=== PATIENT | male | born 1945 | race Caucasian/White ===

== ENCOUNTER 2017-11-11 05:56 | Outpatient (RCR) | payer MEDICARE, BC ==
[~2017-11-11 05:56] MED LIST: ATOR20TA65 PO; BLOO-1318 MC; BLOO-1337 MC; CALC0.5C5 PO; CALC1POW MC; CALC400T65 PO; CHOL200074 PO; CINA90TA2 PO; DEXTROSE 50% 50 ML SYR IVP PRN; DIALYSIS ACETAMINOPHEN 325 MG PO PRN; GLIM1TAB25 PO; LANC-1149 MC; LOPERAMIDE HCL 2 MG CAP PO PRN; PARI5VIA IV; SEVE800T16 PO; [UNRECOGNIZED DRUG - CODE] IJ; [UNRECOGNIZED DRUG - CODE] IV; diphenhydr DIALYSIS 50 MG/ML IVP PRN
[2017-11-11] MEDS: HEPARIN (PORCINE) 1000 UNIT/ML (DIALYSIS) IVP PRN (06:38)
[2017-11-11] MEDS: HEPARIN SOD (PORCINE) LOAD IVP PRN (06:38)
[2017-11-11] MEDS: PARICALCITOL 2 MCG/ML VIAL IVP PRN (08:23)
[2017-11-13] MEDS: HEPARIN (PORCINE) 1000 UNIT/ML (DIALYSIS) IVP PRN (06:33)
[2017-11-13] MEDS: HEPARIN SOD (PORCINE) LOAD IVP PRN (06:33)
[2017-11-13] MEDS: SODIUM FERRIC GLUC 62.5 MG/5ML IVP PRN (07:15)
[2017-11-13] MEDS: PARICALCITOL 2 MCG/ML VIAL IVP PRN (07:15)
[2017-11-15] MEDS: HEPARIN SOD (PORCINE) LOAD IVP PRN (06:34)
[2017-11-15] MEDS: HEPARIN (PORCINE) 1000 UNIT/ML (DIALYSIS) IVP PRN (06:34)
[2017-11-15] MEDS: PARICALCITOL 2 MCG/ML VIAL IVP PRN (07:26)
[2017-11-15] MEDS: DARBEPOETIN ESRD 25 MCG/ML IVP PRN (07:26)
[2017-11-18] MEDS: HEPARIN SOD (PORCINE) LOAD IVP PRN (06:35)
[2017-11-18] MEDS: HEPARIN (PORCINE) 1000 UNIT/ML (DIALYSIS) IVP PRN (06:35)
[2017-11-18] MEDS: PARICALCITOL 2 MCG/ML VIAL IVP PRN (07:29)
[2017-11-20] MEDS: HEPARIN (PORCINE) 1000 UNIT/ML (DIALYSIS) IVP PRN (06:28)
[2017-11-20] MEDS: HEPARIN SOD (PORCINE) LOAD IVP PRN (06:28)
[2017-11-20] MEDS: PARICALCITOL 2 MCG/ML VIAL IVP PRN (07:19)
[2017-11-20] MEDS: SODIUM FERRIC GLUC 62.5 MG/5ML IVP PRN (07:19)
[2017-11-22] MEDS: HEPARIN SOD (PORCINE) LOAD IVP PRN (06:37)
[2017-11-22] MEDS: HEPARIN (PORCINE) 1000 UNIT/ML (DIALYSIS) IVP PRN (06:37)
[2017-11-22] MEDS: DARBEPOETIN ESRD 25 MCG/ML IVP PRN (07:07)
[2017-11-22] MEDS: PARICALCITOL 2 MCG/ML VIAL IVP PRN (07:07)
[2017-11-25] MEDS: HEPARIN (PORCINE) 1000 UNIT/ML (DIALYSIS) IVP PRN (06:34)
[2017-11-25] MEDS: HEPARIN SOD (PORCINE) LOAD IVP PRN (06:35)
[2017-11-25] MEDS: PARICALCITOL 2 MCG/ML VIAL IVP PRN (06:48)
[2017-11-27] MEDS: HEPARIN (PORCINE) 1000 UNIT/ML (DIALYSIS) IVP PRN (06:30)
[2017-11-27] MEDS: HEPARIN SOD (PORCINE) LOAD IVP PRN (06:30)
[2017-11-27] MEDS: PARICALCITOL 2 MCG/ML VIAL IVP PRN (07:19)
[2017-11-27] MEDS: SODIUM FERRIC GLUC 62.5 MG/5ML IVP PRN (07:19)
[2017-11-27 07:54] LABS: PLATELET COUNT, AUTOMATED 174 K/uL (150-450)
[2017-11-29] MEDS: HEPARIN (PORCINE) 1000 UNIT/ML (DIALYSIS) IVP PRN (06:35)
[2017-11-29] MEDS: HEPARIN SOD (PORCINE) LOAD IVP PRN (06:35)
[2017-11-29] MEDS: PARICALCITOL 2 MCG/ML VIAL IVP PRN (07:04)
[2017-11-29] MEDS: DARBEPOETIN ESRD 40MCG/ML IVP PRN (07:04)
[2017-12-02] MEDS: HEPARIN (PORCINE) 1000 UNIT/ML (DIALYSIS) IVP PRN (06:37)
[2017-12-02] MEDS: HEPARIN SOD (PORCINE) LOAD IVP PRN (06:37)
[2017-12-02] MEDS: PARICALCITOL 2 MCG/ML VIAL IVP PRN (07:10)
[2017-12-04] MEDS: HEPARIN (PORCINE) 1000 UNIT/ML (DIALYSIS) IVP PRN (06:36)
[2017-12-04] MEDS: HEPARIN SOD (PORCINE) LOAD IVP PRN (06:37)
[2017-12-04] MEDS: SODIUM FERRIC GLUC 62.5 MG/5ML IVP PRN (07:28)
[2017-12-04] MEDS: PARICALCITOL 2 MCG/ML VIAL IVP PRN (07:28)
[2017-12-06] MEDS: HEPARIN SOD (PORCINE) LOAD IVP PRN (06:25)
[2017-12-06] MEDS: HEPARIN (PORCINE) 1000 UNIT/ML (DIALYSIS) IVP PRN (06:25)
[2017-12-06] MEDS: PARICALCITOL 2 MCG/ML VIAL IVP PRN (07:21)
[2017-12-06] MEDS: DARBEPOETIN ESRD 40MCG/ML IVP PRN (07:22)
[2017-12-06] MEDS ORDERED: [UNRECOGNIZED DRUG - OTHER] IV PRN ×2 (09:30→09:50)
[2017-12-07] MEDS ORDERED: [UNRECOGNIZED DRUG - OTHER] IVP PRN (17:00)
[2017-12-09] MEDS: HEPARIN (PORCINE) 1000 UNIT/ML (DIALYSIS) IVP PRN (06:29)
[2017-12-09] MEDS: HEPARIN SOD (PORCINE) LOAD IVP PRN (06:29)
[2017-12-09] MEDS: PARICALCITOL 2 MCG/ML VIAL IVP PRN (06:44)
[2017-12-09] MEDS: [UNRECOGNIZED DRUG - OTHER] IVP PRN (11:15)
[2017-12-11] MEDS: HEPARIN (PORCINE) 1000 UNIT/ML (DIALYSIS) IVP PRN (06:30)
[2017-12-11] MEDS: HEPARIN SOD (PORCINE) LOAD IVP PRN (06:30)
[2017-12-11] MEDS: PARICALCITOL 2 MCG/ML VIAL IVP PRN (07:25)
[2017-12-11] MEDS: [UNRECOGNIZED DRUG - OTHER] IVP PRN (11:12)
[2017-12-13] MEDS: HEPARIN (PORCINE) 1000 UNIT/ML (DIALYSIS) IVP PRN (06:34)
[2017-12-13] MEDS: PARICALCITOL 2 MCG/ML VIAL IVP PRN (07:06)
[2017-12-13] MEDS: DARBEPOETIN ESRD 40MCG/ML IVP PRN (07:06)
[2017-12-13] MEDS: [UNRECOGNIZED DRUG - OTHER] IVP PRN (11:21)
[2017-12-16] MEDS: HEPARIN (PORCINE) 1000 UNIT/ML (DIALYSIS) IVP PRN (06:29)
[2017-12-16] MEDS: HEPARIN SOD (PORCINE) LOAD IVP PRN (06:30)
[2017-12-16] MEDS: PARICALCITOL 2 MCG/ML VIAL IVP PRN (07:06)
[2017-12-16] MEDS: [UNRECOGNIZED DRUG - OTHER] IVP PRN (11:21)
[2017-12-18] MEDS: HEPARIN (PORCINE) 1000 UNIT/ML (DIALYSIS) IVP PRN (06:36)
[2017-12-18] MEDS: HEPARIN SOD (PORCINE) LOAD IVP PRN (06:36)
[2017-12-18] MEDS: SODIUM FERRIC GLUC 62.5 MG/5ML IVP PRN (07:40)
[2017-12-18] MEDS: PARICALCITOL 2 MCG/ML VIAL IVP PRN (07:40)
[2017-12-18] MEDS: [UNRECOGNIZED DRUG - OTHER] IVP PRN (11:21)
[2017-12-20] MEDS: HEPARIN SOD (PORCINE) LOAD IVP PRN (06:27)
[2017-12-20] MEDS: HEPARIN (PORCINE) 1000 UNIT/ML (DIALYSIS) IVP PRN (06:27)
[2017-12-20] MEDS: PARICALCITOL 2 MCG/ML VIAL IVP PRN (07:04)
[2017-12-20] MEDS: DARBEPOETIN ESRD 25 MCG/ML IVP PRN (07:04)
[2017-12-20] MEDS: [UNRECOGNIZED DRUG - OTHER] IVP PRN (11:15)
[2017-12-23] MEDS: HEPARIN SOD (PORCINE) LOAD IVP PRN (06:27)
[2017-12-23] MEDS: HEPARIN (PORCINE) 1000 UNIT/ML (DIALYSIS) IVP PRN (06:27)
[2017-12-23] MEDS: PARICALCITOL 2 MCG/ML VIAL IVP PRN (07:45)
[2017-12-23] MEDS: [UNRECOGNIZED DRUG - OTHER] IVP PRN (11:16)
[2017-12-25] MEDS: HEPARIN SOD (PORCINE) LOAD IVP PRN (06:39)
[2017-12-25] MEDS: HEPARIN (PORCINE) 1000 UNIT/ML (DIALYSIS) IVP PRN (06:39)
[2017-12-25] MEDS ORDERED: HEPARIN (PORCINE) 1000 UNIT/ML (DIALYSIS) ONE (06:41)
[2017-12-25] MEDS: PARICALCITOL 2 MCG/ML VIAL IVP PRN (07:34)
[2017-12-25] MEDS: [UNRECOGNIZED DRUG - OTHER] IVP PRN (11:25)
[2017-12-27] MEDS: HEPARIN SOD (PORCINE) LOAD IVP PRN (06:19)
[2017-12-27] MEDS: HEPARIN (PORCINE) 1000 UNIT/ML (DIALYSIS) IVP PRN (06:19)
[2017-12-27] MEDS: DARBEPOETIN ESRD 25 MCG/ML IVP PRN (07:30)
[2017-12-27] MEDS: PARICALCITOL 2 MCG/ML VIAL IVP PRN (07:30)
[2017-12-27] MEDS: [UNRECOGNIZED DRUG - OTHER] IVP PRN (11:02)
[2017-12-30] MEDS: HEPARIN (PORCINE) 1000 UNIT/ML (DIALYSIS) IVP PRN (06:31)
[2017-12-30] MEDS: HEPARIN SOD (PORCINE) LOAD IVP PRN (06:31)
[2017-12-30] MEDS: PARICALCITOL 2 MCG/ML VIAL IVP PRN (07:20)
[2017-12-30] MEDS: [UNRECOGNIZED DRUG - OTHER] IVP PRN (11:21)
[2018-01-01] MEDS: HEPARIN (PORCINE) 1000 UNIT/ML (DIALYSIS) IVP PRN (06:46)
[2018-01-01] MEDS: HEPARIN SOD (PORCINE) LOAD IVP PRN (06:47)
[2018-01-01] MEDS: PARICALCITOL 2 MCG/ML VIAL IVP PRN (07:23)
[2018-01-01] MEDS: SODIUM FERRIC GLUC 62.5 MG/5ML IVP PRN (07:23)
[2018-01-01 07:30] LABS: PLATELET COUNT, AUTOMATED 177 K/uL (150-450)
[2018-01-01] MEDS: [UNRECOGNIZED DRUG - OTHER] IVP PRN (11:39)
[2018-01-03] MEDS: HEPARIN SOD (PORCINE) LOAD IVP PRN (06:38)
[2018-01-03] MEDS: HEPARIN (PORCINE) 1000 UNIT/ML (DIALYSIS) IVP PRN (06:40)
[2018-01-03] MEDS: PARICALCITOL 2 MCG/ML VIAL IVP PRN (07:09)
[2018-01-03] MEDS: [UNRECOGNIZED DRUG - OTHER] IVP PRN (11:23)
[2018-01-06] MEDS: HEPARIN (PORCINE) 1000 UNIT/ML (DIALYSIS) IVP PRN (06:29)
[2018-01-06] MEDS: HEPARIN SOD (PORCINE) LOAD IVP PRN (06:29)
[2018-01-06] MEDS: PARICALCITOL 2 MCG/ML VIAL IVP PRN (07:03)
[2018-01-06] MEDS: [UNRECOGNIZED DRUG - OTHER] IVP PRN (11:17)
[2018-01-08] MEDS: HEPARIN SOD (PORCINE) LOAD IVP PRN (06:32)
[2018-01-08] MEDS: HEPARIN (PORCINE) 1000 UNIT/ML (DIALYSIS) IVP PRN (06:33)
[2018-01-08] MEDS: PARICALCITOL 2 MCG/ML VIAL IVP PRN (07:23)
[2018-01-08] MEDS: [UNRECOGNIZED DRUG - OTHER] IVP PRN (11:20)
[2018-01-10] MEDS: HEPARIN (PORCINE) 1000 UNIT/ML (DIALYSIS) IVP PRN (06:34)
[2018-01-10] MEDS: HEPARIN SOD (PORCINE) LOAD IVP PRN (06:34)
[2018-01-10] MEDS: PARICALCITOL 2 MCG/ML VIAL IVP PRN (07:21)
[2018-01-10] MEDS: [UNRECOGNIZED DRUG - OTHER] IVP PRN (11:23)
[2018-01-13] MEDS: HEPARIN SOD (PORCINE) LOAD IVP PRN (06:36)
[2018-01-13] MEDS: HEPARIN (PORCINE) 1000 UNIT/ML (DIALYSIS) IVP PRN (06:37)
[2018-01-13] MEDS: PARICALCITOL 2 MCG/ML VIAL IVP PRN (08:02)
[2018-01-13] MEDS: [UNRECOGNIZED DRUG - OTHER] IVP PRN (11:29)
[2018-01-15] MEDS: HEPARIN SOD (PORCINE) LOAD IVP PRN (06:34)
[2018-01-15] MEDS: HEPARIN (PORCINE) 1000 UNIT/ML (DIALYSIS) IVP PRN (06:34)
[2018-01-15] MEDS: SODIUM FERRIC GLUC 62.5 MG/5ML IVP PRN (07:15)
[2018-01-15] MEDS: PARICALCITOL 2 MCG/ML VIAL IVP PRN (07:15)
[2018-01-15] MEDS: [UNRECOGNIZED DRUG - OTHER] IVP PRN (11:25)
[2018-01-17] MEDS: HEPARIN (PORCINE) 1000 UNIT/ML (DIALYSIS) IVP PRN (06:30)
[2018-01-17] MEDS: HEPARIN SOD (PORCINE) LOAD IVP PRN (06:30)
[2018-01-17] MEDS: PARICALCITOL 2 MCG/ML VIAL IVP PRN (07:25)
[2018-01-17] MEDS: [UNRECOGNIZED DRUG - OTHER] IVP PRN (11:19)
[2018-01-20] MEDS: HEPARIN SOD (PORCINE) LOAD IVP PRN (06:31)
[2018-01-20] MEDS: HEPARIN (PORCINE) 1000 UNIT/ML (DIALYSIS) IVP PRN (06:31)
[2018-01-20] MEDS: PARICALCITOL 2 MCG/ML VIAL IVP PRN (07:00)
[2018-01-20] MEDS: [UNRECOGNIZED DRUG - OTHER] IVP PRN (11:17)
[2018-01-22] MEDS: HEPARIN (PORCINE) 1000 UNIT/ML (DIALYSIS) IVP PRN (06:42)
[2018-01-22] MEDS: HEPARIN SOD (PORCINE) LOAD IVP PRN (06:43)
[2018-01-22] MEDS: PARICALCITOL 2 MCG/ML VIAL IVP PRN (07:21)
[2018-01-22] MEDS: [UNRECOGNIZED DRUG - OTHER] IVP PRN (11:29)
[2018-01-24] MEDS: HEPARIN SOD (PORCINE) LOAD IVP PRN (07:22)
[2018-01-24] MEDS: HEPARIN (PORCINE) 1000 UNIT/ML (DIALYSIS) IVP PRN (07:22)
[2018-01-24] MEDS: PARICALCITOL 2 MCG/ML VIAL IVP PRN (08:03)
[2018-01-24] MEDS: [UNRECOGNIZED DRUG - OTHER] IVP PRN (11:39)
[2018-01-27] MEDS: HEPARIN (PORCINE) 1000 UNIT/ML (DIALYSIS) IVP PRN (06:24)
[2018-01-27] MEDS: HEPARIN SOD (PORCINE) LOAD IVP PRN (06:26)
[2018-01-27] MEDS: PARICALCITOL 2 MCG/ML VIAL IVP PRN (06:54)
[2018-01-27] MEDS: [UNRECOGNIZED DRUG - OTHER] IVP PRN (11:14)
[2018-01-29] MEDS: HEPARIN SOD (PORCINE) LOAD IVP PRN (06:31)
[2018-01-29] MEDS: HEPARIN (PORCINE) 1000 UNIT/ML (DIALYSIS) IVP PRN (06:31)
[2018-01-29 07:26] LABS: PLATELET COUNT, AUTOMATED 174 K/uL (150-450)
[2018-01-29] MEDS: SODIUM FERRIC GLUC 62.5 MG/5ML IVP PRN (07:47)
[2018-01-29] MEDS: PARICALCITOL 2 MCG/ML VIAL IVP PRN (07:47)
[2018-01-29] MEDS: [UNRECOGNIZED DRUG - OTHER] IVP PRN (11:16)
[2018-01-31] MEDS: HEPARIN SOD (PORCINE) LOAD IVP PRN (06:37)
[2018-01-31] MEDS: HEPARIN (PORCINE) 1000 UNIT/ML (DIALYSIS) IVP PRN (06:37)
[2018-01-31] MEDS: DARBEPOETIN ESRD 25 MCG/ML IVP PRN (07:49)
[2018-01-31] MEDS: PARICALCITOL 2 MCG/ML VIAL IVP PRN (07:50)
[2018-01-31] MEDS: [UNRECOGNIZED DRUG - OTHER] IVP PRN (11:26)
[2018-02-03] MEDS: HEPARIN SOD (PORCINE) LOAD IVP PRN (06:37)
[2018-02-03] MEDS: HEPARIN (PORCINE) 1000 UNIT/ML (DIALYSIS) IVP PRN (06:37)
[2018-02-03] MEDS: PARICALCITOL 2 MCG/ML VIAL IVP PRN (07:55)
[2018-02-03] MEDS: [UNRECOGNIZED DRUG - OTHER] IVP PRN (11:39)
[2018-02-05] MEDS: HEPARIN SOD (PORCINE) LOAD IVP PRN (06:32)
[2018-02-05] MEDS: HEPARIN (PORCINE) 1000 UNIT/ML (DIALYSIS) IVP PRN (06:33)
[2018-02-05] MEDS: PARICALCITOL 2 MCG/ML VIAL IVP PRN (07:37)
[2018-02-05] MEDS: [UNRECOGNIZED DRUG - OTHER] IVP PRN (11:18)
[2018-02-07] MEDS: HEPARIN SOD (PORCINE) LOAD IVP PRN (06:39)
[2018-02-07] MEDS: HEPARIN (PORCINE) 1000 UNIT/ML (DIALYSIS) IVP PRN (06:39)
[2018-02-07] MEDS: PARICALCITOL 2 MCG/ML VIAL IVP PRN (07:06)
[2018-02-07] MEDS: [UNRECOGNIZED DRUG - OTHER] IVP PRN (11:21)
[2018-02-10] MEDS: HEPARIN (PORCINE) 1000 UNIT/ML (DIALYSIS) IVP PRN (06:39)
[2018-02-10] MEDS: HEPARIN SOD (PORCINE) LOAD IVP PRN (06:39)
[2018-02-10] MEDS: PARICALCITOL 2 MCG/ML VIAL IVP PRN (07:18)
[2018-02-10] MEDS: [UNRECOGNIZED DRUG - OTHER] IVP PRN (11:29)
[2018-02-12] MEDS: HEPARIN (PORCINE) 1000 UNIT/ML (DIALYSIS) IVP PRN (06:31)
[2018-02-12] MEDS: HEPARIN SOD (PORCINE) LOAD IVP PRN (06:31)
[2018-02-12] MEDS: PARICALCITOL 2 MCG/ML VIAL IVP PRN (07:54)
[2018-02-12] MEDS: SODIUM FERRIC GLUC 62.5 MG/5ML IVP PRN (07:54)
[2018-02-12] MEDS: [UNRECOGNIZED DRUG - OTHER] IVP PRN (11:46)
[2018-02-14] MEDS: HEPARIN (PORCINE) 1000 UNIT/ML (DIALYSIS) IVP PRN (06:34)
[2018-02-14] MEDS: HEPARIN SOD (PORCINE) LOAD IVP PRN (06:34)
[2018-02-14] MEDS: PARICALCITOL 2 MCG/ML VIAL IVP PRN (08:43)
[2018-02-14] MEDS: DARBEPOETIN ESRD 25 MCG/ML IVP PRN (08:43)
[2018-02-14] MEDS: [UNRECOGNIZED DRUG - OTHER] IVP PRN (11:27)
[2018-02-17] MEDS: HEPARIN SOD (PORCINE) LOAD IVP PRN (06:30)
[2018-02-17] MEDS: HEPARIN (PORCINE) 1000 UNIT/ML (DIALYSIS) IVP PRN (06:30)
[2018-02-17] MEDS: PARICALCITOL 2 MCG/ML VIAL IVP PRN (07:24)
[2018-02-17] MEDS: [UNRECOGNIZED DRUG - OTHER] IVP PRN (11:24)
[2018-02-19] MEDS: HEPARIN (PORCINE) 1000 UNIT/ML (DIALYSIS) IVP PRN (06:39)
[2018-02-19] MEDS: HEPARIN SOD (PORCINE) LOAD IVP PRN (06:40)
[2018-02-19] MEDS: PARICALCITOL 2 MCG/ML VIAL IVP PRN (07:37)
[2018-02-19] MEDS: [UNRECOGNIZED DRUG - OTHER] IVP PRN (11:36)
[2018-02-21] MEDS: HEPARIN (PORCINE) 1000 UNIT/ML (DIALYSIS) IVP PRN (06:33)
[2018-02-21] MEDS: HEPARIN SOD (PORCINE) LOAD IVP PRN (06:33)
[2018-02-21] MEDS: PARICALCITOL 2 MCG/ML VIAL IVP PRN (07:35)
[2018-02-21] MEDS: [UNRECOGNIZED DRUG - OTHER] IVP PRN (11:25)
[2018-02-24] MEDS: HEPARIN (PORCINE) 1000 UNIT/ML (DIALYSIS) IVP PRN (06:33)
[2018-02-24] MEDS: HEPARIN SOD (PORCINE) LOAD IVP PRN (06:34)
[2018-02-24] MEDS: PARICALCITOL 2 MCG/ML VIAL IVP PRN (07:37)
[2018-02-24] MEDS: [UNRECOGNIZED DRUG - OTHER] IVP PRN (11:24)
[2018-02-26] MEDS: HEPARIN (PORCINE) 1000 UNIT/ML (DIALYSIS) IVP PRN (06:39)
[2018-02-26] MEDS: HEPARIN SOD (PORCINE) LOAD IVP PRN (06:39)
[2018-02-26] MEDS: PARICALCITOL 2 MCG/ML VIAL IVP PRN (07:26)
[2018-02-26] MEDS: SODIUM FERRIC GLUC 62.5 MG/5ML IVP PRN (07:26)
[2018-02-26 07:28] LABS: PLATELET COUNT, AUTOMATED 167 K/uL (150-450)
[2018-02-26] MEDS: [UNRECOGNIZED DRUG - OTHER] IVP PRN (11:22)
[2018-02-28] MEDS: HEPARIN (PORCINE) 1000 UNIT/ML (DIALYSIS) IVP PRN (06:26)
[2018-02-28] MEDS: HEPARIN SOD (PORCINE) LOAD IVP PRN (06:27)
[2018-02-28] MEDS: DARBEPOETIN ESRD 25 MCG/ML IVP PRN (07:55)
[2018-02-28] MEDS: PARICALCITOL 2 MCG/ML VIAL IVP PRN (07:56)
[2018-02-28] MEDS: [UNRECOGNIZED DRUG - OTHER] IVP PRN (11:04)
[2018-03-03] MEDS: HEPARIN SOD (PORCINE) LOAD IVP PRN (06:27)
[2018-03-03] MEDS: HEPARIN (PORCINE) 1000 UNIT/ML (DIALYSIS) IVP PRN (06:27)
[2018-03-03] MEDS: PARICALCITOL 2 MCG/ML VIAL IVP PRN (07:07)
[2018-03-03] MEDS: [UNRECOGNIZED DRUG - OTHER] IVP PRN (11:25)
[2018-03-05] MEDS: HEPARIN (PORCINE) 1000 UNIT/ML (DIALYSIS) IVP PRN (06:28)
[2018-03-05] MEDS: HEPARIN SOD (PORCINE) LOAD IVP PRN (06:28)
[2018-03-05] MEDS: PARICALCITOL 2 MCG/ML VIAL IVP PRN (08:51)
[2018-03-05] MEDS: [UNRECOGNIZED DRUG - OTHER] IVP PRN (11:14)
[2018-03-07] MEDS: HEPARIN (PORCINE) 1000 UNIT/ML (DIALYSIS) IVP PRN (06:38)
[2018-03-07] MEDS: HEPARIN SOD (PORCINE) LOAD IVP PRN (06:38)
[2018-03-07] MEDS: PARICALCITOL 2 MCG/ML VIAL IVP PRN (07:48)
[2018-03-07] MEDS: [UNRECOGNIZED DRUG - OTHER] IVP PRN (11:10)
[2018-03-10] MEDS: HEPARIN SOD (PORCINE) LOAD IVP PRN (06:33)
[2018-03-10] MEDS: HEPARIN (PORCINE) 1000 UNIT/ML (DIALYSIS) IVP PRN (06:33)
[2018-03-10] MEDS: PARICALCITOL 2 MCG/ML VIAL IVP PRN (07:22)
[2018-03-10] MEDS: [UNRECOGNIZED DRUG - OTHER] IVP PRN (11:05)
[2018-03-12] MEDS: HEPARIN (PORCINE) 1000 UNIT/ML (DIALYSIS) IVP PRN (06:42)
[2018-03-12] MEDS: HEPARIN SOD (PORCINE) LOAD IVP PRN (06:43)
[2018-03-12] MEDS: PARICALCITOL 2 MCG/ML VIAL IVP PRN (07:34)
[2018-03-12] MEDS: [UNRECOGNIZED DRUG - OTHER] IVP PRN (11:10)
[2018-03-14] MEDS: HEPARIN (PORCINE) 1000 UNIT/ML (DIALYSIS) IVP PRN (06:37)
[2018-03-14] MEDS: HEPARIN SOD (PORCINE) LOAD IVP PRN (06:38)
[2018-03-14] MEDS: PARICALCITOL 2 MCG/ML VIAL IVP PRN (07:16)
[2018-03-14] MEDS: DARBEPOETIN ESRD 25 MCG/ML IVP PRN (07:21)
[2018-03-14] MEDS: [UNRECOGNIZED DRUG - OTHER] IVP PRN (11:24)
[2018-03-17] MEDS: HEPARIN (PORCINE) 1000 UNIT/ML (DIALYSIS) IVP PRN (06:33)
[2018-03-17] MEDS: HEPARIN SOD (PORCINE) LOAD IVP PRN (06:33)
[2018-03-17] MEDS: PARICALCITOL 2 MCG/ML VIAL IVP PRN (07:20)
[2018-03-17] MEDS: [UNRECOGNIZED DRUG - OTHER] IVP PRN (11:14)
[2018-03-19] MEDS: HEPARIN SOD (PORCINE) LOAD IVP PRN (06:45)
[2018-03-19] MEDS: HEPARIN (PORCINE) 1000 UNIT/ML (DIALYSIS) IVP PRN (06:45)
[2018-03-19 08:10] LABS: PLATELET COUNT, AUTOMATED 229 K/uL (150-450)
[2018-03-19] MEDS: PARICALCITOL 2 MCG/ML VIAL IVP PRN (08:48)
[2018-03-19] MEDS: [UNRECOGNIZED DRUG - OTHER] IVP PRN (11:41)
[2018-03-21] MEDS: HEPARIN (PORCINE) 1000 UNIT/ML (DIALYSIS) IVP PRN (06:33)
[2018-03-21] MEDS: HEPARIN SOD (PORCINE) LOAD IVP PRN (06:33)
[2018-03-21] MEDS: PARICALCITOL 2 MCG/ML VIAL IVP PRN (07:18)
[2018-03-21] MEDS: [UNRECOGNIZED DRUG - OTHER] IVP PRN (11:03)
[2018-03-24] MEDS: HEPARIN (PORCINE) 1000 UNIT/ML (DIALYSIS) IVP PRN (06:38)
[2018-03-24] MEDS: HEPARIN SOD (PORCINE) LOAD IVP PRN (06:38)
[2018-03-24] MEDS: PARICALCITOL 2 MCG/ML VIAL IVP PRN (07:21)
[2018-03-24] MEDS: [UNRECOGNIZED DRUG - OTHER] IVP PRN (11:17)
[2018-03-26] MEDS: HEPARIN SOD (PORCINE) LOAD IVP PRN (06:37)
[2018-03-26] MEDS: HEPARIN (PORCINE) 1000 UNIT/ML (DIALYSIS) IVP PRN (06:38)
[2018-03-26] MEDS: PARICALCITOL 2 MCG/ML VIAL IVP PRN (07:30)
[2018-03-26] MEDS: [UNRECOGNIZED DRUG - OTHER] IVP PRN (11:09)
[2018-03-28] MEDS: HEPARIN (PORCINE) 1000 UNIT/ML (DIALYSIS) IVP PRN (06:37)
[2018-03-28] MEDS: HEPARIN SOD (PORCINE) LOAD IVP PRN (06:37)
[2018-03-28] MEDS: DARBEPOETIN ESRD 25 MCG/ML IVP PRN (07:39)
[2018-03-28] MEDS: PARICALCITOL 2 MCG/ML VIAL IVP PRN (07:39)
[2018-03-28] MEDS: [UNRECOGNIZED DRUG - OTHER] IVP PRN (11:12)
[2018-03-31] MEDS: HEPARIN (PORCINE) 1000 UNIT/ML (DIALYSIS) IVP PRN (06:36)
[2018-03-31] MEDS: HEPARIN SOD (PORCINE) LOAD IVP PRN (06:36)
[2018-03-31] MEDS: PARICALCITOL 2 MCG/ML VIAL IVP PRN (07:38)
[2018-03-31] MEDS: [UNRECOGNIZED DRUG - OTHER] IVP PRN (11:05)
[2018-04-02] MEDS: HEPARIN (PORCINE) 1000 UNIT/ML (DIALYSIS) IVP PRN (06:37)
[2018-04-02] MEDS: HEPARIN SOD (PORCINE) LOAD IVP PRN (06:38)
[2018-04-02] MEDS: PARICALCITOL 2 MCG/ML VIAL IVP PRN (07:15)
[2018-04-02] MEDS: [UNRECOGNIZED DRUG - OTHER] IVP PRN (11:04)
[2018-04-04] MEDS: HEPARIN (PORCINE) 1000 UNIT/ML (DIALYSIS) IVP PRN (06:29)
[2018-04-04] MEDS: HEPARIN SOD (PORCINE) LOAD IVP PRN (06:29)
[2018-04-04] MEDS: PARICALCITOL 2 MCG/ML VIAL IVP PRN (07:18)
[2018-04-04] MEDS: [UNRECOGNIZED DRUG - OTHER] IVP PRN ×2 (11:08→11:15)
[2018-04-07] MEDS: HEPARIN SOD (PORCINE) LOAD IVP PRN (06:45)
[2018-04-07] MEDS: HEPARIN (PORCINE) 1000 UNIT/ML (DIALYSIS) IVP PRN (06:46)
[2018-04-07] MEDS: PARICALCITOL 2 MCG/ML VIAL IVP PRN (07:29)
[2018-04-07] MEDS: [UNRECOGNIZED DRUG - OTHER] IVP PRN (11:34)
[2018-04-09] MEDS: HEPARIN (PORCINE) 1000 UNIT/ML (DIALYSIS) IVP PRN (06:37)
[2018-04-09] MEDS: HEPARIN SOD (PORCINE) LOAD IVP PRN (06:38)
[2018-04-09] MEDS: PARICALCITOL 2 MCG/ML VIAL IVP PRN (07:15)
[2018-04-09] MEDS: [UNRECOGNIZED DRUG - OTHER] IVP PRN (11:18)
[2018-04-11] MEDS: HEPARIN SOD (PORCINE) LOAD IVP PRN (06:32)
[2018-04-11] MEDS: HEPARIN (PORCINE) 1000 UNIT/ML (DIALYSIS) IVP PRN (06:32)
[2018-04-11] MEDS: PARICALCITOL 2 MCG/ML VIAL IVP PRN (07:02)
[2018-04-11] MEDS: DARBEPOETIN ESRD 25 MCG/ML IVP PRN (07:03)
[2018-04-11] MEDS: [UNRECOGNIZED DRUG - OTHER] IVP PRN (11:30)
[2018-04-14] MEDS: HEPARIN (PORCINE) 1000 UNIT/ML (DIALYSIS) IVP PRN (06:39)
[2018-04-14] MEDS: HEPARIN SOD (PORCINE) LOAD IVP PRN (06:39)
[2018-04-14] MEDS: PARICALCITOL 2 MCG/ML VIAL IVP PRN (07:14)
[2018-04-14] MEDS: [UNRECOGNIZED DRUG - OTHER] IVP PRN (11:14)
[2018-04-16] MEDS: HEPARIN (PORCINE) 1000 UNIT/ML (DIALYSIS) IVP PRN (06:30)
[2018-04-16] MEDS: HEPARIN SOD (PORCINE) LOAD IVP PRN (06:30)
[2018-04-16] MEDS: PARICALCITOL 2 MCG/ML VIAL IVP PRN (07:24)
[2018-04-16] MEDS: [UNRECOGNIZED DRUG - OTHER] IVP PRN (11:05)
[2018-04-18] MEDS: HEPARIN (PORCINE) 1000 UNIT/ML (DIALYSIS) IVP PRN (06:35)
[2018-04-18] MEDS: HEPARIN SOD (PORCINE) LOAD IVP PRN (06:35)
[2018-04-18] MEDS: PARICALCITOL 2 MCG/ML VIAL IVP PRN (07:12)
[2018-04-18] MEDS: [UNRECOGNIZED DRUG - OTHER] IVP PRN (11:12)
[2018-04-21] MEDS: HEPARIN (PORCINE) 1000 UNIT/ML (DIALYSIS) IVP PRN (06:31)
[2018-04-21] MEDS: HEPARIN SOD (PORCINE) LOAD IVP PRN (06:31)
[2018-04-21] MEDS: PARICALCITOL 2 MCG/ML VIAL IVP PRN (06:47)
[2018-04-21] MEDS: [UNRECOGNIZED DRUG - OTHER] IVP PRN (11:06)
[2018-04-23] MEDS: HEPARIN (PORCINE) 1000 UNIT/ML (DIALYSIS) IVP PRN (06:39)
[2018-04-23] MEDS: HEPARIN SOD (PORCINE) LOAD IVP PRN (06:40)
[2018-04-23] MEDS: PARICALCITOL 2 MCG/ML VIAL IVP PRN (07:32)
[2018-04-23 07:42] LABS: PLATELET COUNT, AUTOMATED 160 K/uL (150-450)
[2018-04-23] MEDS: [UNRECOGNIZED DRUG - OTHER] IVP PRN (11:19)
[2018-04-25] MEDS: HEPARIN SOD (PORCINE) LOAD IVP PRN (07:04)
[2018-04-25] MEDS: HEPARIN (PORCINE) 1000 UNIT/ML (DIALYSIS) IVP PRN (07:05)
[2018-04-25] MEDS: PARICALCITOL 2 MCG/ML VIAL IVP PRN (07:18)
[2018-04-25] MEDS: DARBEPOETIN ESRD 25 MCG/ML IVP PRN (07:18)
[2018-04-25] MEDS: [UNRECOGNIZED DRUG - OTHER] IVP PRN (11:06)
[2018-04-28] MEDS: HEPARIN SOD (PORCINE) LOAD IVP PRN (06:34)
[2018-04-28] MEDS: HEPARIN (PORCINE) 1000 UNIT/ML (DIALYSIS) IVP PRN (06:34)
[2018-04-28] MEDS: PARICALCITOL 2 MCG/ML VIAL IVP PRN (06:43)
[2018-04-28] MEDS: [UNRECOGNIZED DRUG - OTHER] IVP PRN (12:37)
[2018-04-30] MEDS: HEPARIN (PORCINE) 1000 UNIT/ML (DIALYSIS) IVP PRN (06:29)
[2018-04-30] MEDS: HEPARIN SOD (PORCINE) LOAD IVP PRN (06:29)
[2018-04-30] MEDS: PARICALCITOL 2 MCG/ML VIAL IVP PRN (08:01)
[2018-04-30] MEDS: [UNRECOGNIZED DRUG - OTHER] IVP PRN (12:23)
[2018-05-02] MEDS: HEPARIN SOD (PORCINE) LOAD IVP PRN (06:32)
[2018-05-02] MEDS: HEPARIN (PORCINE) 1000 UNIT/ML (DIALYSIS) IVP PRN (06:32)
[2018-05-02] MEDS: PARICALCITOL 2 MCG/ML VIAL IVP PRN (07:56)
[2018-05-02] MEDS: [UNRECOGNIZED DRUG - OTHER] IVP PRN (11:03)
[2018-05-05] MEDS: HEPARIN (PORCINE) 1000 UNIT/ML (DIALYSIS) IVP PRN (06:29)
[2018-05-05] MEDS: HEPARIN SOD (PORCINE) LOAD IVP PRN (06:30)
[2018-05-05] MEDS: PARICALCITOL 2 MCG/ML VIAL IVP PRN (07:37)
[2018-05-05] MEDS: [UNRECOGNIZED DRUG - OTHER] IVP PRN (11:03)
[2018-05-07] MEDS: HEPARIN (PORCINE) 1000 UNIT/ML (DIALYSIS) IVP PRN (06:33)
[2018-05-07] MEDS: HEPARIN SOD (PORCINE) LOAD IVP PRN (06:33)
[2018-05-07] MEDS: PARICALCITOL 2 MCG/ML VIAL IVP PRN (07:34)
[2018-05-07] MEDS: [UNRECOGNIZED DRUG - OTHER] IVP PRN (11:02)
[2018-05-09] MEDS: HEPARIN (PORCINE) 1000 UNIT/ML (DIALYSIS) IVP PRN (06:35)
[2018-05-09] MEDS: HEPARIN SOD (PORCINE) LOAD IVP PRN (06:35)
[2018-05-09] MEDS: DARBEPOETIN ESRD 25 MCG/ML IVP PRN (07:18)
[2018-05-09] MEDS: PARICALCITOL 2 MCG/ML VIAL IVP PRN (07:18)
[2018-05-09] MEDS: [UNRECOGNIZED DRUG - OTHER] IVP PRN (11:05)
[2018-05-12] MEDS: HEPARIN (PORCINE) 1000 UNIT/ML (DIALYSIS) IVP PRN (06:36)
[2018-05-12] MEDS: HEPARIN SOD (PORCINE) LOAD IVP PRN (06:36)
[2018-05-12] MEDS: PARICALCITOL 2 MCG/ML VIAL IVP PRN (08:19)
[2018-05-12] MEDS: [UNRECOGNIZED DRUG - OTHER] IVP PRN (11:10)
[2018-05-14] MEDS: HEPARIN (PORCINE) 1000 UNIT/ML (DIALYSIS) IVP PRN (06:35)
[2018-05-14] MEDS: HEPARIN SOD (PORCINE) LOAD IVP PRN (06:35)
[2018-05-14] MEDS: PARICALCITOL 2 MCG/ML VIAL IVP PRN (07:33)
[2018-05-14] MEDS: [UNRECOGNIZED DRUG - OTHER] IVP PRN (11:09)
[2018-05-16] MEDS: HEPARIN SOD (PORCINE) LOAD IVP PRN (06:31)
[2018-05-16] MEDS: HEPARIN (PORCINE) 1000 UNIT/ML (DIALYSIS) IVP PRN (06:31)
[2018-05-16] MEDS: PARICALCITOL 2 MCG/ML VIAL IVP PRN (09:07)
[2018-05-16] MEDS: [UNRECOGNIZED DRUG - OTHER] IVP PRN (11:09)
[2018-05-19] MEDS: HEPARIN SOD (PORCINE) LOAD IVP PRN (06:31)
[2018-05-19] MEDS: HEPARIN (PORCINE) 1000 UNIT/ML (DIALYSIS) IVP PRN (06:31)
[2018-05-19] MEDS: PARICALCITOL 2 MCG/ML VIAL IVP PRN (08:53)
[2018-05-19] MEDS: [UNRECOGNIZED DRUG - OTHER] IVP PRN (11:01)
[2018-05-21] MEDS: HEPARIN SOD (PORCINE) LOAD IVP PRN (06:39)
[2018-05-21] MEDS: HEPARIN (PORCINE) 1000 UNIT/ML (DIALYSIS) IVP PRN (06:39)
[2018-05-21] MEDS: PARICALCITOL 2 MCG/ML VIAL IVP PRN (07:48)
[2018-05-21] MEDS: [UNRECOGNIZED DRUG - OTHER] IVP PRN (11:06)
[2018-05-23] MEDS: HEPARIN (PORCINE) 1000 UNIT/ML (DIALYSIS) IVP PRN (06:39)
[2018-05-23] MEDS: HEPARIN SOD (PORCINE) LOAD IVP PRN (06:39)
[2018-05-23] MEDS: PARICALCITOL 2 MCG/ML VIAL IVP PRN (07:42)
[2018-05-23] MEDS: DARBEPOETIN ESRD 25 MCG/ML IVP PRN (07:42)
[2018-05-23] MEDS: [UNRECOGNIZED DRUG - OTHER] IVP PRN (11:17)
[2018-05-26] MEDS: HEPARIN (PORCINE) 1000 UNIT/ML (DIALYSIS) IVP PRN (06:19)
[2018-05-26] MEDS: HEPARIN SOD (PORCINE) LOAD IVP PRN (06:19)
[2018-05-26] MEDS: PARICALCITOL 2 MCG/ML VIAL IVP PRN (07:58)
[2018-05-26] MEDS: [UNRECOGNIZED DRUG - OTHER] IVP PRN (10:50)
[2018-05-28] MEDS: HEPARIN SOD (PORCINE) LOAD IVP PRN (06:37)
[2018-05-28] MEDS: HEPARIN (PORCINE) 1000 UNIT/ML (DIALYSIS) IVP PRN (06:37)
[2018-05-28 07:32] LABS: PLATELET COUNT, AUTOMATED 196 K/uL (150-450)
[2018-05-28] MEDS: PARICALCITOL 2 MCG/ML VIAL IVP PRN (07:42)
[2018-05-28] MEDS: [UNRECOGNIZED DRUG - OTHER] IVP PRN (11:11)
[2018-05-30] MEDS: HEPARIN SOD (PORCINE) LOAD IVP PRN (06:33)
[2018-05-30] MEDS: HEPARIN (PORCINE) 1000 UNIT/ML (DIALYSIS) IVP PRN (06:33)
[2018-05-30] MEDS: PARICALCITOL 2 MCG/ML VIAL IVP PRN (07:26)
[2018-05-30] MEDS: [UNRECOGNIZED DRUG - OTHER] IVP PRN (11:07)
[2018-06-02] MEDS: HEPARIN (PORCINE) 1000 UNIT/ML (DIALYSIS) IVP PRN (06:47)
[2018-06-02] MEDS: HEPARIN SOD (PORCINE) LOAD IVP PRN (06:48)
[2018-06-02] MEDS: PARICALCITOL 2 MCG/ML VIAL IVP PRN (07:41)
[2018-06-02] MEDS: [UNRECOGNIZED DRUG - OTHER] IVP PRN (11:17)
[2018-06-04] MEDS: HEPARIN (PORCINE) 1000 UNIT/ML (DIALYSIS) IVP PRN (06:31)
[2018-06-04] MEDS: HEPARIN SOD (PORCINE) LOAD IVP PRN (06:31)
[2018-06-04] MEDS: PARICALCITOL 2 MCG/ML VIAL IVP PRN (07:03)
[2018-06-04] MEDS: [UNRECOGNIZED DRUG - OTHER] IVP PRN (11:02)
[2018-06-06] MEDS: HEPARIN SOD (PORCINE) LOAD IVP PRN (06:30)
[2018-06-06] MEDS: HEPARIN (PORCINE) 1000 UNIT/ML (DIALYSIS) IVP PRN (06:30)
[2018-06-06] MEDS: DARBEPOETIN ESRD 25 MCG/ML IVP PRN (07:20)
[2018-06-06] MEDS: PARICALCITOL 2 MCG/ML VIAL IVP PRN (07:20)
[2018-06-06] MEDS: [UNRECOGNIZED DRUG - OTHER] IVP PRN (11:02)
[2018-06-09] MEDS: HEPARIN (PORCINE) 1000 UNIT/ML (DIALYSIS) IVP PRN (06:38)
[2018-06-09] MEDS: HEPARIN SOD (PORCINE) LOAD IVP PRN (06:38)
[2018-06-09] MEDS: PARICALCITOL 2 MCG/ML VIAL IVP PRN (08:11)
[2018-06-09] MEDS: [UNRECOGNIZED DRUG - OTHER] IVP PRN (11:10)
[2018-06-11] MEDS: HEPARIN SOD (PORCINE) LOAD IVP PRN (06:41)
[2018-06-11] MEDS: HEPARIN (PORCINE) 1000 UNIT/ML (DIALYSIS) IVP PRN (06:41)
[2018-06-11] MEDS: PARICALCITOL 2 MCG/ML VIAL IVP PRN (07:19)
[2018-06-11] MEDS: [UNRECOGNIZED DRUG - OTHER] IVP PRN (11:04)
[2018-06-13] MEDS: HEPARIN (PORCINE) 1000 UNIT/ML (DIALYSIS) IVP PRN (06:35)
[2018-06-13] MEDS: HEPARIN SOD (PORCINE) LOAD IVP PRN (06:36)
[2018-06-13] MEDS: PARICALCITOL 2 MCG/ML VIAL IVP PRN (07:02)
[2018-06-13] MEDS: [UNRECOGNIZED DRUG - OTHER] IVP PRN (11:01)
[2018-06-16] MEDS: HEPARIN SOD (PORCINE) LOAD IVP PRN (06:33)
[2018-06-16] MEDS: HEPARIN (PORCINE) 1000 UNIT/ML (DIALYSIS) IVP PRN (06:33)
[2018-06-16] MEDS: PARICALCITOL 2 MCG/ML VIAL IVP PRN (07:32)
[2018-06-16] MEDS: [UNRECOGNIZED DRUG - OTHER] IVP PRN (10:56)
[2018-06-18] MEDS: HEPARIN (PORCINE) 1000 UNIT/ML (DIALYSIS) IVP PRN (06:38)
[2018-06-18] MEDS: HEPARIN SOD (PORCINE) LOAD IVP PRN (06:39)
[2018-06-18 07:32] LABS: PLATELET COUNT, AUTOMATED 191 K/uL (150-450)
[2018-06-18] MEDS: PARICALCITOL 2 MCG/ML VIAL IVP PRN (07:35)
[2018-06-18] MEDS: [UNRECOGNIZED DRUG - OTHER] IVP PRN (11:15)
[2018-06-20] MEDS: HEPARIN (PORCINE) 1000 UNIT/ML (DIALYSIS) IVP PRN (06:30)
[2018-06-20] MEDS: HEPARIN SOD (PORCINE) LOAD IVP PRN (06:30)
[2018-06-20] MEDS: DARBEPOETIN ESRD 25 MCG/ML IVP PRN (07:18)
[2018-06-20] MEDS: PARICALCITOL 2 MCG/ML VIAL IVP PRN (07:18)
[2018-06-20] MEDS: [UNRECOGNIZED DRUG - OTHER] IVP PRN (11:05)
[2018-06-23] MEDS: HEPARIN (PORCINE) 1000 UNIT/ML (DIALYSIS) IVP PRN (06:31)
[2018-06-23] MEDS: HEPARIN SOD (PORCINE) LOAD IVP PRN (06:32)
[2018-06-23] MEDS: PARICALCITOL 2 MCG/ML VIAL IVP PRN (07:38)
[2018-06-23] MEDS: [UNRECOGNIZED DRUG - OTHER] IVP PRN (11:00)
[2018-06-25] MEDS: HEPARIN (PORCINE) 1000 UNIT/ML (DIALYSIS) IVP PRN (06:36)
[2018-06-25] MEDS: HEPARIN SOD (PORCINE) LOAD IVP PRN (06:36)
[2018-06-25] MEDS: PARICALCITOL 2 MCG/ML VIAL IVP PRN (07:15)
[2018-06-25] MEDS: [UNRECOGNIZED DRUG - OTHER] IVP PRN (11:05)
[2018-06-27] MEDS: HEPARIN (PORCINE) 1000 UNIT/ML (DIALYSIS) IVP PRN (06:30)
[2018-06-27] MEDS: HEPARIN SOD (PORCINE) LOAD IVP PRN (06:31)
[2018-06-27] MEDS: PARICALCITOL 2 MCG/ML VIAL IVP PRN (07:16)
[2018-06-27] MEDS: DARBEPOETIN ESRD 25 MCG/ML IVP PRN (07:16)
[2018-06-27] MEDS: [UNRECOGNIZED DRUG - OTHER] IVP PRN (11:05)
[2018-06-30] MEDS: HEPARIN SOD (PORCINE) LOAD IVP PRN (06:34)
[2018-06-30] MEDS: HEPARIN (PORCINE) 1000 UNIT/ML (DIALYSIS) IVP PRN (06:34)
[2018-06-30] MEDS: PARICALCITOL 2 MCG/ML VIAL IVP PRN (07:35)
[2018-06-30] MEDS: [UNRECOGNIZED DRUG - OTHER] IVP PRN (11:00)
[2018-07-02] MEDS: HEPARIN (PORCINE) 1000 UNIT/ML (DIALYSIS) IVP PRN (06:33)
[2018-07-02] MEDS: HEPARIN SOD (PORCINE) LOAD IVP PRN (06:33)
[2018-07-02] MEDS: PARICALCITOL 2 MCG/ML VIAL IVP PRN (07:35)
[2018-07-02] MEDS: [UNRECOGNIZED DRUG - OTHER] IVP PRN (11:04)
[2018-07-04] MEDS: HEPARIN SOD (PORCINE) LOAD IVP PRN (06:26)
[2018-07-04] MEDS: HEPARIN (PORCINE) 1000 UNIT/ML (DIALYSIS) IVP PRN (06:26)
[2018-07-04] MEDS: DARBEPOETIN ESRD 25 MCG/ML IVP PRN (07:16)
[2018-07-04] MEDS: PARICALCITOL 2 MCG/ML VIAL IVP PRN (07:17)
[2018-07-04] MEDS: [UNRECOGNIZED DRUG - OTHER] IVP PRN (10:58)
[2018-07-07] MEDS: HEPARIN SOD (PORCINE) LOAD IVP PRN (06:25)
[2018-07-07] MEDS: HEPARIN (PORCINE) 1000 UNIT/ML (DIALYSIS) IVP PRN (06:25)
[2018-07-07] MEDS: PARICALCITOL 2 MCG/ML VIAL IVP PRN (06:45)
[2018-07-07] MEDS: [UNRECOGNIZED DRUG - OTHER] IVP PRN (10:59)
[2018-07-09] MEDS: HEPARIN (PORCINE) 1000 UNIT/ML (DIALYSIS) IVP PRN (06:35)
[2018-07-09] MEDS: HEPARIN SOD (PORCINE) LOAD IVP PRN (06:36)
[2018-07-09] MEDS: PARICALCITOL 2 MCG/ML VIAL IVP PRN (07:10)
[2018-07-09] MEDS: [UNRECOGNIZED DRUG - OTHER] IVP PRN (11:02)
[2018-07-11] MEDS: HEPARIN (PORCINE) 1000 UNIT/ML (DIALYSIS) IVP PRN (06:34)
[2018-07-11] MEDS: HEPARIN SOD (PORCINE) LOAD IVP PRN (06:35)
[2018-07-11] MEDS: PARICALCITOL 2 MCG/ML VIAL IVP PRN (07:28)
[2018-07-11] MEDS: DARBEPOETIN ESRD 25 MCG/ML IVP PRN (07:28)
[2018-07-11] MEDS: [UNRECOGNIZED DRUG - OTHER] IVP PRN (10:57)
[2018-07-14] MEDS: HEPARIN SOD (PORCINE) LOAD IVP PRN (06:31)
[2018-07-14] MEDS: HEPARIN (PORCINE) 1000 UNIT/ML (DIALYSIS) IVP PRN (06:31)
[2018-07-14] MEDS: PARICALCITOL 2 MCG/ML VIAL IVP PRN (07:13)
[2018-07-14] MEDS: [UNRECOGNIZED DRUG - OTHER] IVP PRN (11:01)
[2018-07-16] MEDS: HEPARIN SOD (PORCINE) LOAD IVP PRN (06:26)
[2018-07-16] MEDS: HEPARIN (PORCINE) 1000 UNIT/ML (DIALYSIS) IVP PRN (06:26)
[2018-07-16] MEDS: PARICALCITOL 2 MCG/ML VIAL IVP PRN (06:46)
[2018-07-16] MEDS: [UNRECOGNIZED DRUG - OTHER] IVP PRN (10:50)
[2018-07-18] MEDS: HEPARIN SOD (PORCINE) LOAD IVP PRN (06:20)
[2018-07-18] MEDS: HEPARIN (PORCINE) 1000 UNIT/ML (DIALYSIS) IVP PRN (06:20)
[2018-07-18] MEDS: PARICALCITOL 2 MCG/ML VIAL IVP PRN (07:22)
[2018-07-18] MEDS: DARBEPOETIN ESRD 25 MCG/ML IVP PRN (07:22)
[2018-07-18] MEDS: [UNRECOGNIZED DRUG - OTHER] IVP PRN (10:56)
[2018-07-21] MEDS: HEPARIN SOD (PORCINE) LOAD IVP PRN (06:31)
[2018-07-21] MEDS: HEPARIN (PORCINE) 1000 UNIT/ML (DIALYSIS) IVP PRN (06:31)
[2018-07-21] MEDS: PARICALCITOL 2 MCG/ML VIAL IVP PRN (07:12)
[2018-07-21] MEDS: [UNRECOGNIZED DRUG - OTHER] IVP PRN (11:03)
[2018-07-23] MEDS: HEPARIN SOD (PORCINE) LOAD IVP PRN (06:33)
[2018-07-23] MEDS: HEPARIN (PORCINE) 1000 UNIT/ML (DIALYSIS) IVP PRN (06:34)
[2018-07-23] MEDS: PARICALCITOL 2 MCG/ML VIAL IVP PRN (07:36)
[2018-07-23] MEDS: [UNRECOGNIZED DRUG - OTHER] IVP PRN (11:09)
[2018-07-25] MEDS: HEPARIN (PORCINE) 1000 UNIT/ML (DIALYSIS) IVP PRN (06:22)
[2018-07-25] MEDS: HEPARIN SOD (PORCINE) LOAD IVP PRN (06:23)
[2018-07-25] MEDS: PARICALCITOL 2 MCG/ML VIAL IVP PRN (07:32)
[2018-07-25] MEDS: DARBEPOETIN ESRD 25 MCG/ML IVP PRN (07:33)
[2018-07-25] MEDS: [UNRECOGNIZED DRUG - OTHER] IVP PRN (10:52)
[2018-07-28] MEDS: HEPARIN SOD (PORCINE) LOAD IVP PRN (06:23)
[2018-07-28] MEDS: HEPARIN (PORCINE) 1000 UNIT/ML (DIALYSIS) IVP PRN (06:23)
[2018-07-28] MEDS: PARICALCITOL 2 MCG/ML VIAL IVP PRN (06:57)
[2018-07-28] MEDS: [UNRECOGNIZED DRUG - OTHER] IVP PRN (10:49)
[2018-07-30] MEDS: HEPARIN (PORCINE) 1000 UNIT/ML (DIALYSIS) IVP PRN (06:22)
[2018-07-30] MEDS: HEPARIN SOD (PORCINE) LOAD IVP PRN (06:23)
[2018-07-30] MEDS: PARICALCITOL 2 MCG/ML VIAL IVP PRN (06:55)
[2018-07-30 07:44] LABS: PLATELET COUNT, AUTOMATED 195 K/uL (150-450)
[2018-07-30] MEDS: [UNRECOGNIZED DRUG - OTHER] IVP PRN (10:58)
[2018-08-01] MEDS: HEPARIN SOD (PORCINE) LOAD IVP PRN (06:28)
[2018-08-01] MEDS: HEPARIN (PORCINE) 1000 UNIT/ML (DIALYSIS) IVP PRN (06:29)
[2018-08-01] MEDS: PARICALCITOL 2 MCG/ML VIAL IVP PRN (07:27)
[2018-08-01] MEDS: [UNRECOGNIZED DRUG - OTHER] IVP PRN (10:54)
[2018-08-04] MEDS: HEPARIN SOD (PORCINE) LOAD IVP PRN (06:28)
[2018-08-04] MEDS: HEPARIN (PORCINE) 1000 UNIT/ML (DIALYSIS) IVP PRN (06:28)
[2018-08-04] MEDS: PARICALCITOL 2 MCG/ML VIAL IVP PRN (07:17)
[2018-08-04] MEDS: [UNRECOGNIZED DRUG - OTHER] IVP PRN (10:55)
[2018-08-06] MEDS: HEPARIN (PORCINE) 1000 UNIT/ML (DIALYSIS) IVP PRN (06:26)
[2018-08-06] MEDS: HEPARIN SOD (PORCINE) LOAD IVP PRN (06:27)
[2018-08-06] MEDS: PARICALCITOL 2 MCG/ML VIAL IVP PRN (07:32)
[2018-08-06] MEDS ORDERED: INFLUENZA VIRUS VAC 0.5ML SYR IM ONLY ONE (11:00)
[2018-08-06] MEDS: [UNRECOGNIZED DRUG - OTHER] IVP PRN (11:04)
[2018-08-08] MEDS: HEPARIN (PORCINE) 1000 UNIT/ML (DIALYSIS) IVP PRN (06:38)
[2018-08-08] MEDS: HEPARIN SOD (PORCINE) LOAD IVP PRN (06:38)
[2018-08-08] MEDS: PARICALCITOL 2 MCG/ML VIAL IVP PRN (07:40)
[2018-08-08] MEDS ORDERED: DARBEPOETIN ESRD 40MCG/ML IVP PRN (10:50)
[2018-08-08] MEDS: [UNRECOGNIZED DRUG - OTHER] IVP PRN (11:09)
[2018-08-11] MEDS: HEPARIN SOD (PORCINE) LOAD IVP PRN (06:32)
[2018-08-11] MEDS: HEPARIN (PORCINE) 1000 UNIT/ML (DIALYSIS) IVP PRN (06:32)
[2018-08-11] MEDS: PARICALCITOL 2 MCG/ML VIAL IVP PRN (08:27)
[2018-08-11] MEDS: [UNRECOGNIZED DRUG - OTHER] IVP PRN (11:07)
[2018-08-13] MEDS: HEPARIN SOD (PORCINE) LOAD IVP PRN (06:29)
[2018-08-13] MEDS: HEPARIN (PORCINE) 1000 UNIT/ML (DIALYSIS) IVP PRN (06:29)
[2018-08-13] MEDS: PARICALCITOL 2 MCG/ML VIAL IVP PRN (08:21)
[2018-08-13] MEDS: [UNRECOGNIZED DRUG - OTHER] IVP PRN (11:11)
[2018-08-15] MEDS: HEPARIN (PORCINE) 1000 UNIT/ML (DIALYSIS) IVP PRN (06:33)
[2018-08-15] MEDS: HEPARIN SOD (PORCINE) LOAD IVP PRN (06:33)
[2018-08-15] MEDS: PARICALCITOL 2 MCG/ML VIAL IVP PRN (07:17)
[2018-08-15] MEDS: [UNRECOGNIZED DRUG - OTHER] IVP PRN (11:07)
[2018-08-18] MEDS: HEPARIN SOD (PORCINE) LOAD IVP PRN (06:31)
[2018-08-18] MEDS: HEPARIN (PORCINE) 1000 UNIT/ML (DIALYSIS) IVP PRN (06:32)
[2018-08-18] MEDS: PARICALCITOL 2 MCG/ML VIAL IVP PRN (07:35)
[2018-08-18] MEDS: [UNRECOGNIZED DRUG - OTHER] IVP PRN (10:53)
[2018-08-20] MEDS: HEPARIN (PORCINE) 1000 UNIT/ML (DIALYSIS) IVP PRN (06:35)
[2018-08-20] MEDS: HEPARIN SOD (PORCINE) LOAD IVP PRN (06:35)
[2018-08-20] MEDS: PARICALCITOL 2 MCG/ML VIAL IVP PRN (08:21)
[2018-08-20] MEDS: [UNRECOGNIZED DRUG - OTHER] IVP PRN (11:06)
[2018-08-22] MEDS: HEPARIN SOD (PORCINE) LOAD IVP PRN (06:26)
[2018-08-22] MEDS: HEPARIN (PORCINE) 1000 UNIT/ML (DIALYSIS) IVP PRN (06:26)
[2018-08-22] MEDS: DARBEPOETIN ESRD 25 MCG/ML IVP PRN (07:26)
[2018-08-22] MEDS: PARICALCITOL 2 MCG/ML VIAL IVP PRN (07:27)
[2018-08-22] MEDS: [UNRECOGNIZED DRUG - OTHER] IVP PRN (10:58)
[2018-08-25] MEDS: HEPARIN (PORCINE) 1000 UNIT/ML (DIALYSIS) IVP PRN (06:35)
[2018-08-25] MEDS: HEPARIN SOD (PORCINE) LOAD IVP PRN (06:35)
[2018-08-25] MEDS: PARICALCITOL 2 MCG/ML VIAL IVP PRN (07:28)
[2018-08-25] MEDS: [UNRECOGNIZED DRUG - OTHER] IVP PRN (11:06)
[2018-08-27] MEDS: HEPARIN (PORCINE) 1000 UNIT/ML (DIALYSIS) IVP PRN (06:40)
[2018-08-27] MEDS: HEPARIN SOD (PORCINE) LOAD IVP PRN (06:40)
[2018-08-27] MEDS: PARICALCITOL 2 MCG/ML VIAL IVP PRN (07:22)
[2018-08-27] MEDS: [UNRECOGNIZED DRUG - OTHER] IVP PRN (11:11)
[2018-08-29] MEDS: HEPARIN (PORCINE) 1000 UNIT/ML (DIALYSIS) IVP PRN (06:37)
[2018-08-29] MEDS: HEPARIN SOD (PORCINE) LOAD IVP PRN (06:37)
[2018-08-29] MEDS: PARICALCITOL 2 MCG/ML VIAL IVP PRN (07:48)
[2018-08-29] MEDS: [UNRECOGNIZED DRUG - OTHER] IVP PRN (11:06)
[2018-09-01] MEDS: HEPARIN (PORCINE) 1000 UNIT/ML (DIALYSIS) IVP PRN (06:27)
[2018-09-01] MEDS: HEPARIN SOD (PORCINE) LOAD IVP PRN (06:27)
[2018-09-01] MEDS: PARICALCITOL 2 MCG/ML VIAL IVP PRN (07:16)
[2018-09-01] MEDS: [UNRECOGNIZED DRUG - OTHER] IVP PRN (11:00)
[2018-09-03] MEDS: HEPARIN SOD (PORCINE) LOAD IVP PRN (06:35)
[2018-09-03] MEDS: HEPARIN (PORCINE) 1000 UNIT/ML (DIALYSIS) IVP PRN (06:35)
[2018-09-03 07:09] LABS: PLATELET COUNT, AUTOMATED 174 K/uL (150-450)
[2018-09-03] MEDS: PARICALCITOL 2 MCG/ML VIAL IVP PRN (07:14)
[2018-09-03] MEDS: [UNRECOGNIZED DRUG - OTHER] IVP PRN (11:01)
[2018-09-05] MEDS: HEPARIN SOD (PORCINE) LOAD IVP PRN (06:27)
[2018-09-05] MEDS: HEPARIN (PORCINE) 1000 UNIT/ML (DIALYSIS) IVP PRN (06:27)
[2018-09-05] MEDS: DARBEPOETIN ESRD 25 MCG/ML IVP PRN (07:39)
[2018-09-05] MEDS: PARICALCITOL 2 MCG/ML VIAL IVP PRN (07:40)
[2018-09-05] MEDS: [UNRECOGNIZED DRUG - OTHER] IVP PRN (11:05)
[2018-09-08] MEDS: HEPARIN (PORCINE) 1000 UNIT/ML (DIALYSIS) IVP PRN (06:34)
[2018-09-08] MEDS: HEPARIN SOD (PORCINE) LOAD IVP PRN (06:35)
[2018-09-08] MEDS: PARICALCITOL 2 MCG/ML VIAL IVP PRN (07:07)
[2018-09-08] MEDS: [UNRECOGNIZED DRUG - OTHER] IVP PRN (11:04)
[2018-09-10] MEDS: HEPARIN (PORCINE) 1000 UNIT/ML (DIALYSIS) IVP PRN (06:36)
[2018-09-10] MEDS: HEPARIN SOD (PORCINE) LOAD IVP PRN (06:36)
[2018-09-10] MEDS: PARICALCITOL 2 MCG/ML VIAL IVP PRN (07:34)
[2018-09-10] MEDS: [UNRECOGNIZED DRUG - OTHER] IVP PRN (11:10)
[2018-09-12] MEDS: HEPARIN SOD (PORCINE) LOAD IVP PRN (06:30)
[2018-09-12] MEDS: HEPARIN (PORCINE) 1000 UNIT/ML (DIALYSIS) IVP PRN (06:30)
[2018-09-12] MEDS: PARICALCITOL 2 MCG/ML VIAL IVP PRN (07:43)
[2018-09-12] MEDS: [UNRECOGNIZED DRUG - OTHER] IVP PRN (11:01)
[2018-09-15] MEDS: HEPARIN (PORCINE) 1000 UNIT/ML (DIALYSIS) IVP PRN (06:29)
[2018-09-15] MEDS: HEPARIN SOD (PORCINE) LOAD IVP PRN (06:29)
[2018-09-15] MEDS: PARICALCITOL 2 MCG/ML VIAL IVP PRN (07:29)
[2018-09-15] MEDS: [UNRECOGNIZED DRUG - OTHER] IVP PRN (11:03)
[2018-09-17] MEDS: HEPARIN (PORCINE) 1000 UNIT/ML (DIALYSIS) IVP PRN (06:30)
[2018-09-17] MEDS: HEPARIN SOD (PORCINE) LOAD IVP PRN (06:31)
[2018-09-17] MEDS: PARICALCITOL 2 MCG/ML VIAL IVP PRN (08:17)
[2018-09-17] MEDS: [UNRECOGNIZED DRUG - OTHER] IVP PRN (11:05)
[2018-09-19] MEDS: HEPARIN SOD (PORCINE) LOAD IVP PRN (06:27)
[2018-09-19] MEDS: HEPARIN (PORCINE) 1000 UNIT/ML (DIALYSIS) IVP PRN (06:27)
[2018-09-19] MEDS: DARBEPOETIN ESRD 25 MCG/ML IVP PRN (06:59)
[2018-09-19] MEDS: PARICALCITOL 2 MCG/ML VIAL IVP PRN (07:00)
[2018-09-19] MEDS: [UNRECOGNIZED DRUG - OTHER] IVP PRN (10:55)
[2018-09-22] MEDS: HEPARIN (PORCINE) 1000 UNIT/ML (DIALYSIS) IVP PRN (06:26)
[2018-09-22] MEDS: HEPARIN SOD (PORCINE) LOAD IVP PRN (06:26)
[2018-09-22] MEDS: PARICALCITOL 2 MCG/ML VIAL IVP PRN (07:55)
[2018-09-22] MEDS: [UNRECOGNIZED DRUG - OTHER] IVP PRN (11:09)
[2018-09-24] MEDS: HEPARIN (PORCINE) 1000 UNIT/ML (DIALYSIS) IVP PRN (06:36)
[2018-09-24] MEDS: HEPARIN SOD (PORCINE) LOAD IVP PRN (06:37)
[2018-09-24] MEDS: PARICALCITOL 2 MCG/ML VIAL IVP PRN (07:25)
[2018-09-24] MEDS: [UNRECOGNIZED DRUG - OTHER] IVP PRN (11:07)
[2018-09-26] MEDS: HEPARIN (PORCINE) 1000 UNIT/ML (DIALYSIS) IVP PRN (06:22)
[2018-09-26] MEDS: HEPARIN SOD (PORCINE) LOAD IVP PRN (06:22)
[2018-09-26] MEDS: PARICALCITOL 2 MCG/ML VIAL IVP PRN (07:30)
[2018-09-26] MEDS: [UNRECOGNIZED DRUG - OTHER] IVP PRN (10:59)
[2018-09-29] MEDS: HEPARIN SOD (PORCINE) LOAD IVP PRN (06:26)
[2018-09-29] MEDS: HEPARIN (PORCINE) 1000 UNIT/ML (DIALYSIS) IVP PRN (06:26)
[2018-09-29] MEDS: PARICALCITOL 2 MCG/ML VIAL IVP PRN (07:02)
[2018-09-29] MEDS: [UNRECOGNIZED DRUG - OTHER] IVP PRN (11:05)
[2018-10-01] MEDS: HEPARIN (PORCINE) 1000 UNIT/ML (DIALYSIS) IVP PRN (06:31)
[2018-10-01] MEDS: HEPARIN SOD (PORCINE) LOAD IVP PRN (06:32)
[2018-10-01] MEDS: PARICALCITOL 2 MCG/ML VIAL IVP PRN (06:59)
[2018-10-01 07:34] LABS: PLATELET COUNT, AUTOMATED 182 K/uL (150-450)
[2018-10-01] MEDS: [UNRECOGNIZED DRUG - OTHER] IVP PRN (11:04)
[2018-10-04] MEDS: HEPARIN (PORCINE) 1000 UNIT/ML (DIALYSIS) IVP PRN (06:21)
[2018-10-04] MEDS: HEPARIN SOD (PORCINE) LOAD IVP PRN (06:21)
[2018-10-04] MEDS: DARBEPOETIN ESRD 25 MCG/ML IVP PRN (08:35)
[2018-10-04] MEDS: PARICALCITOL 2 MCG/ML VIAL IVP PRN (08:35)
[2018-10-04] MEDS: [UNRECOGNIZED DRUG - OTHER] IVP PRN (10:59)
[2018-10-06] MEDS: HEPARIN (PORCINE) 1000 UNIT/ML (DIALYSIS) IVP PRN (06:23)
[2018-10-06] MEDS: HEPARIN SOD (PORCINE) LOAD IVP PRN (06:24)
[2018-10-06] MEDS: PARICALCITOL 2 MCG/ML VIAL IVP PRN (06:52)
[2018-10-07] MEDS: HEPARIN (PORCINE) 1000 UNIT/ML (DIALYSIS) IVP PRN (06:24)
[2018-10-07] MEDS: HEPARIN SOD (PORCINE) LOAD IVP PRN (06:25)
[2018-10-08] MEDS: HEPARIN (PORCINE) 1000 UNIT/ML (DIALYSIS) IVP PRN (06:44)
[2018-10-08] MEDS: HEPARIN SOD (PORCINE) LOAD IVP PRN (06:45)
[2018-10-08] MEDS: PARICALCITOL 2 MCG/ML VIAL IVP PRN (07:47)
[2018-10-08] MEDS: [UNRECOGNIZED DRUG - OTHER] IVP PRN (11:23)
[2018-10-10] MEDS: HEPARIN SOD (PORCINE) LOAD IVP PRN (06:22)
[2018-10-10] MEDS: HEPARIN (PORCINE) 1000 UNIT/ML (DIALYSIS) IVP PRN (06:23)
[2018-10-10] MEDS: PARICALCITOL 2 MCG/ML VIAL IVP PRN (08:05)
[2018-10-10] MEDS: [UNRECOGNIZED DRUG - OTHER] IVP PRN (10:54)
[2018-10-13] MEDS: HEPARIN SOD (PORCINE) LOAD IVP PRN (06:25)
[2018-10-13] MEDS: HEPARIN (PORCINE) 1000 UNIT/ML (DIALYSIS) IVP PRN (06:25)
[2018-10-13] MEDS: PARICALCITOL 2 MCG/ML VIAL IVP PRN (06:51)
[2018-10-13] MEDS: [UNRECOGNIZED DRUG - OTHER] IVP PRN (11:00)
[2018-10-15] MEDS: HEPARIN (PORCINE) 1000 UNIT/ML (DIALYSIS) IVP PRN (06:34)
[2018-10-15] MEDS: HEPARIN SOD (PORCINE) LOAD IVP PRN (06:34)
[2018-10-15 07:44] LABS: PLATELET COUNT, AUTOMATED 165 K/uL (150-450)
[2018-10-15] MEDS: PARICALCITOL 2 MCG/ML VIAL IVP PRN (07:51)
[2018-10-15] MEDS: [UNRECOGNIZED DRUG - OTHER] IVP PRN (11:09)
[2018-10-17] MEDS: HEPARIN (PORCINE) 1000 UNIT/ML (DIALYSIS) IVP PRN (06:25)
[2018-10-17] MEDS: HEPARIN SOD (PORCINE) LOAD IVP PRN (06:26)
[2018-10-17] MEDS: DARBEPOETIN ESRD 25 MCG/ML IVP PRN (07:46)
[2018-10-17] MEDS: PARICALCITOL 2 MCG/ML VIAL IVP PRN (07:46)
[2018-10-17] MEDS: [UNRECOGNIZED DRUG - OTHER] IVP PRN (11:06)
[2018-10-20] MEDS: HEPARIN (PORCINE) 1000 UNIT/ML (DIALYSIS) IVP PRN (06:23)
[2018-10-20] MEDS: HEPARIN SOD (PORCINE) LOAD IVP PRN (06:23)
[2018-10-20] MEDS: PARICALCITOL 2 MCG/ML VIAL IVP PRN (07:30)
[2018-10-20] MEDS: [UNRECOGNIZED DRUG - OTHER] IVP PRN (10:56)
[2018-10-22] MEDS: HEPARIN (PORCINE) 1000 UNIT/ML (DIALYSIS) IVP PRN (06:32)
[2018-10-22] MEDS: HEPARIN SOD (PORCINE) LOAD IVP PRN (06:33)
[2018-10-22] MEDS: PARICALCITOL 2 MCG/ML VIAL IVP PRN (07:09)
[2018-10-22] MEDS ORDERED: PARICALCITOL 2 MCG/ML VIAL IVP PRN (09:40)
[2018-10-22] MEDS: [UNRECOGNIZED DRUG - OTHER] IVP PRN (11:07)
[2018-10-24] MEDS: HEPARIN (PORCINE) 1000 UNIT/ML (DIALYSIS) IVP PRN (06:19)
[2018-10-24] MEDS: HEPARIN SOD (PORCINE) LOAD IVP PRN (06:20)
[2018-10-24] MEDS: PARICALCITOL 2 MCG/ML VIAL IVP PRN (07:01)
[2018-10-24] MEDS: [UNRECOGNIZED DRUG - OTHER] IVP PRN (10:51)
[2018-10-27] MEDS: HEPARIN SOD (PORCINE) LOAD IVP PRN (06:24)
[2018-10-27] MEDS: HEPARIN (PORCINE) 1000 UNIT/ML (DIALYSIS) IVP PRN (06:24)
[2018-10-27] MEDS: PARICALCITOL 2 MCG/ML VIAL IVP PRN (07:29)
[2018-10-27] MEDS: [UNRECOGNIZED DRUG - OTHER] IVP PRN (10:56)
[2018-10-29] MEDS: HEPARIN (PORCINE) 1000 UNIT/ML (DIALYSIS) IVP PRN (06:29)
[2018-10-29] MEDS: HEPARIN SOD (PORCINE) LOAD IVP PRN (06:29)
[2018-10-29] MEDS: PARICALCITOL 2 MCG/ML VIAL IVP PRN (06:59)
[2018-10-31] MEDS: HEPARIN (PORCINE) 1000 UNIT/ML (DIALYSIS) IVP PRN (06:30)
[2018-10-31] MEDS: HEPARIN SOD (PORCINE) LOAD IVP PRN (06:30)
[2018-10-31] MEDS: PARICALCITOL 2 MCG/ML VIAL IVP PRN (07:18)
[2018-10-31] MEDS: DARBEPOETIN ESRD 25 MCG/ML IVP PRN (07:18)
[2018-10-31] MEDS: [UNRECOGNIZED DRUG - OTHER] IVP PRN (10:49)
[2018-11-02] MEDS: HEPARIN (PORCINE) 1000 UNIT/ML (DIALYSIS) IVP PRN (06:35)
[2018-11-02] MEDS: HEPARIN SOD (PORCINE) LOAD IVP PRN (06:35)
[2018-11-02] MEDS: PARICALCITOL 2 MCG/ML VIAL IVP PRN (07:01)
[2018-11-02] MEDS: [UNRECOGNIZED DRUG - OTHER] IVP PRN (11:11)
[2018-11-05] MEDS: HEPARIN SOD (PORCINE) LOAD IVP PRN (06:23)
[2018-11-05] MEDS: HEPARIN (PORCINE) 1000 UNIT/ML (DIALYSIS) IVP PRN (06:23)
[2018-11-05] MEDS: PARICALCITOL 2 MCG/ML VIAL IVP PRN (07:05)
[2018-11-05] MEDS: [UNRECOGNIZED DRUG - OTHER] IVP PRN (11:09)
[2018-11-07] MEDS: HEPARIN (PORCINE) 1000 UNIT/ML (DIALYSIS) IVP PRN (06:26)
[2018-11-07] MEDS: HEPARIN SOD (PORCINE) LOAD IVP PRN (06:26)
[2018-11-07] MEDS: PARICALCITOL 2 MCG/ML VIAL IVP PRN (07:19)
[2018-11-07] MEDS: [UNRECOGNIZED DRUG - OTHER] IVP PRN (10:54)
[2018-11-10] MEDS: HEPARIN SOD (PORCINE) LOAD IVP PRN (07:25)
[2018-11-10] MEDS: HEPARIN (PORCINE) 1000 UNIT/ML (DIALYSIS) IVP PRN (07:25)
[2018-11-10] MEDS: PARICALCITOL 2 MCG/ML VIAL IVP PRN (08:46)
[2018-11-10] MEDS: [UNRECOGNIZED DRUG - OTHER] IVP PRN (11:04)
== END 2018-11-10 18:08 | disposition home or self-care (01) ==
LOC: DIAL 05:56
PROVIDERS: ATTEND Internal Medicine Nephrology
DX: I12.0 Hypertensive chronic kidney disease with stage 5 chronic kidney disease or end stage renal disease (principal); N18.6 End stage renal disease; E66.9 Obesity, unspecified; N25.81 Secondary hyperparathyroidism of renal origin; D63.1 Anemia in chronic kidney disease; E11.22 Type 2 diabetes mellitus with diabetic chronic kidney disease; C64.9 Malignant neoplasm of unspecified kidney, except renal pelvis; Z90.5 Acquired absence of kidney; Z99.2 Dependence on renal dialysis; Z95.2 Presence of prosthetic heart valve; Z23 Encounter for immunization
CPT/HCPCS: 82040; 82108; 82247; 82310; 82374; 82465; 82565; 82728; 82947; 83036; 83540; 83550; 83970; 84075; 84100; 84132; 84295; 84460; 84478; 84520; 85018; 85025; 86580; 86706; 87340; 90999; A4657; G0008; G0472; J0606; J0882; J1644; J2501; J2916; Q2037; 86803; 90658; 90674

== ENCOUNTER → 2017-11-11 09:24 | Outpatient (RCR) | payer MEDICARE, BC ==
[2016-11-12] MEDS: HEPARIN (PORCINE) 1000 UNIT/ML (DIALYSIS) IVP PRN (06:47)
[2016-11-12] MEDS: HEPARIN SOD (PORCINE) LOAD IVP PRN (06:47)
[2016-11-12] MEDS: PARICALCITOL 2 MCG/ML VIAL IVP PRN (07:22)
[2016-11-14] MEDS: HEPARIN SOD (PORCINE) LOAD IVP PRN (06:48)
[2016-11-14] MEDS: HEPARIN (PORCINE) 1000 UNIT/ML (DIALYSIS) IVP PRN (06:48)
[2016-11-14] MEDS: PARICALCITOL 2 MCG/ML VIAL IVP PRN (07:14)
[2016-11-16] MEDS: HEPARIN SOD (PORCINE) LOAD IVP PRN (06:47)
[2016-11-16] MEDS: HEPARIN (PORCINE) 1000 UNIT/ML (DIALYSIS) IVP PRN (06:47)
[2016-11-16] MEDS: PARICALCITOL 2 MCG/ML VIAL IVP PRN (07:13)
[2016-11-19] MEDS: HEPARIN (PORCINE) 1000 UNIT/ML (DIALYSIS) IVP PRN (06:51)
[2016-11-19] MEDS: HEPARIN SOD (PORCINE) LOAD IVP PRN (06:52)
[2016-11-19] MEDS: PARICALCITOL 2 MCG/ML VIAL IVP PRN (07:13)
[2016-11-21] MEDS: HEPARIN (PORCINE) 1000 UNIT/ML (DIALYSIS) IVP PRN (06:57)
[2016-11-21] MEDS: HEPARIN SOD (PORCINE) LOAD IVP PRN (06:57)
[2016-11-21 07:46] LABS: PLATELET COUNT, AUTOMATED 214 K/uL (150-450)
[2016-11-21] MEDS: PARICALCITOL 2 MCG/ML VIAL IVP PRN (07:48)
[2016-11-23] MEDS: HEPARIN SOD (PORCINE) LOAD IVP PRN (06:57)
[2016-11-23] MEDS: HEPARIN (PORCINE) 1000 UNIT/ML (DIALYSIS) IVP PRN (06:57)
[2016-11-23] MEDS: DARBEPOETIN ESRD 25 MCG/ML IVP PRN (07:10)
[2016-11-23] MEDS: PARICALCITOL 2 MCG/ML VIAL IVP PRN (07:10)
[2016-11-26] MEDS: HEPARIN (PORCINE) 1000 UNIT/ML (DIALYSIS) IVP PRN (06:57)
[2016-11-26] MEDS: HEPARIN SOD (PORCINE) LOAD IVP PRN (06:58)
[2016-11-26] MEDS: PARICALCITOL 2 MCG/ML VIAL IVP PRN (08:21)
[2016-11-28] MEDS: HEPARIN SOD (PORCINE) LOAD IVP PRN (07:11)
[2016-11-28] MEDS: HEPARIN (PORCINE) 1000 UNIT/ML (DIALYSIS) IVP PRN (07:11)
[2016-11-28] MEDS: PARICALCITOL 2 MCG/ML VIAL IVP PRN (07:33)
[2016-11-30] MEDS: HEPARIN (PORCINE) 1000 UNIT/ML (DIALYSIS) IVP PRN (07:01)
[2016-11-30] MEDS: HEPARIN SOD (PORCINE) LOAD IVP PRN (07:01)
[2016-11-30] MEDS: PARICALCITOL 2 MCG/ML VIAL IVP PRN (07:24)
[2016-11-30] MEDS: DARBEPOETIN ESRD 25 MCG/ML IVP PRN (07:24)
[2016-12-03] MEDS: HEPARIN SOD (PORCINE) LOAD IVP PRN (06:41)
[2016-12-03] MEDS: HEPARIN (PORCINE) 1000 UNIT/ML (DIALYSIS) IVP PRN (06:41)
[2016-12-03] MEDS: PARICALCITOL 2 MCG/ML VIAL IVP PRN (07:40)
[2016-12-05] MEDS: HEPARIN (PORCINE) 1000 UNIT/ML (DIALYSIS) IVP PRN (07:14)
[2016-12-05] MEDS: HEPARIN SOD (PORCINE) LOAD IVP PRN (07:14)
[2016-12-05] MEDS: PARICALCITOL 2 MCG/ML VIAL IVP PRN (07:48)
[2016-12-07] MEDS: HEPARIN SOD (PORCINE) LOAD IVP PRN (06:58)
[2016-12-07] MEDS: HEPARIN (PORCINE) 1000 UNIT/ML (DIALYSIS) IVP PRN (06:58)
[2016-12-07] MEDS: DARBEPOETIN ESRD IVP PRN (07:42)
[2016-12-07] MEDS: PARICALCITOL 2 MCG/ML VIAL IVP PRN (07:42)
[2016-12-10] MEDS: HEPARIN (PORCINE) 1000 UNIT/ML (DIALYSIS) IVP PRN (07:03)
[2016-12-10] MEDS: HEPARIN SOD (PORCINE) LOAD IVP PRN (07:03)
[2016-12-10] MEDS: PARICALCITOL 2 MCG/ML VIAL IVP PRN (07:17)
[2016-12-12] MEDS: HEPARIN (PORCINE) 1000 UNIT/ML (DIALYSIS) IVP PRN (06:52)
[2016-12-12] MEDS: HEPARIN SOD (PORCINE) LOAD IVP PRN (06:52)
[2016-12-12] MEDS: PARICALCITOL 2 MCG/ML VIAL IVP PRN (07:34)
[2016-12-14] MEDS: HEPARIN (PORCINE) 1000 UNIT/ML (DIALYSIS) IVP PRN (06:55)
[2016-12-14] MEDS: HEPARIN SOD (PORCINE) LOAD IVP PRN (06:55)
[2016-12-14] MEDS: PARICALCITOL 2 MCG/ML VIAL IVP PRN (07:11)
[2016-12-14] MEDS: DARBEPOETIN ESRD IVP PRN (07:11)
[2016-12-17] MEDS: HEPARIN (PORCINE) 1000 UNIT/ML (DIALYSIS) IVP PRN (07:05)
[2016-12-17] MEDS: HEPARIN SOD (PORCINE) LOAD IVP PRN (07:05)
[2016-12-17] MEDS: PARICALCITOL 2 MCG/ML VIAL IVP PRN (07:53)
[2016-12-19] MEDS: HEPARIN (PORCINE) 1000 UNIT/ML (DIALYSIS) IVP PRN (06:54)
[2016-12-19] MEDS: HEPARIN SOD (PORCINE) LOAD IVP PRN (06:55)
[2016-12-19] MEDS: PARICALCITOL 2 MCG/ML VIAL IVP PRN (07:18)
[2016-12-21] MEDS: HEPARIN (PORCINE) 1000 UNIT/ML (DIALYSIS) IVP PRN (06:58)
[2016-12-21] MEDS: HEPARIN SOD (PORCINE) LOAD IVP PRN (06:58)
[2016-12-21] MEDS: DARBEPOETIN ESRD IVP PRN (07:43)
[2016-12-21] MEDS: PARICALCITOL 2 MCG/ML VIAL IVP PRN (07:43)
[2016-12-24] MEDS: HEPARIN (PORCINE) 1000 UNIT/ML (DIALYSIS) IVP PRN (07:00)
[2016-12-24] MEDS: HEPARIN SOD (PORCINE) LOAD IVP PRN (07:01)
[2016-12-24] MEDS: PARICALCITOL 2 MCG/ML VIAL IVP PRN (08:03)
[2016-12-26] MEDS: HEPARIN SOD (PORCINE) LOAD IVP PRN (07:01)
[2016-12-26] MEDS: HEPARIN (PORCINE) 1000 UNIT/ML (DIALYSIS) IVP PRN (07:02)
[2016-12-26] MEDS: PARICALCITOL 2 MCG/ML VIAL IVP PRN (07:53)
[2016-12-26 07:55] LABS: PLATELET COUNT, AUTOMATED 219 K/uL (150-450)
[2016-12-28] MEDS: HEPARIN SOD (PORCINE) LOAD IVP PRN (06:56)
[2016-12-28] MEDS: HEPARIN (PORCINE) 1000 UNIT/ML (DIALYSIS) IVP PRN (06:56)
[2016-12-28] MEDS: PARICALCITOL 2 MCG/ML VIAL IVP PRN (07:21)
[2016-12-28] MEDS: DARBEPOETIN ESRD 40MCG/ML IVP PRN (07:21)
[2016-12-31] MEDS: HEPARIN (PORCINE) 1000 UNIT/ML (DIALYSIS) IVP PRN (06:56)
[2016-12-31] MEDS: HEPARIN SOD (PORCINE) LOAD IVP PRN (06:57)
[2016-12-31] MEDS: PARICALCITOL 2 MCG/ML VIAL IVP PRN (07:25)
[2017-01-02] MEDS: HEPARIN SOD (PORCINE) LOAD IVP PRN (06:57)
[2017-01-02] MEDS: HEPARIN (PORCINE) 1000 UNIT/ML (DIALYSIS) IVP PRN (06:57)
[2017-01-02] MEDS: PARICALCITOL 2 MCG/ML VIAL IVP PRN (07:21)
[2017-01-04] MEDS: HEPARIN SOD (PORCINE) LOAD IVP PRN (06:53)
[2017-01-04] MEDS: HEPARIN (PORCINE) 1000 UNIT/ML (DIALYSIS) IVP PRN (06:53)
[2017-01-04] MEDS: PARICALCITOL 2 MCG/ML VIAL IVP PRN (07:34)
[2017-01-04] MEDS: DARBEPOETIN ESRD 40MCG/ML IVP PRN (07:34)
[2017-01-07] MEDS: HEPARIN SOD (PORCINE) LOAD IVP PRN (06:53)
[2017-01-07] MEDS: HEPARIN (PORCINE) 1000 UNIT/ML (DIALYSIS) IVP PRN (06:53)
[2017-01-07] MEDS: PARICALCITOL 2 MCG/ML VIAL IVP PRN (07:37)
[2017-01-09] MEDS: HEPARIN SOD (PORCINE) LOAD IVP PRN (06:59)
[2017-01-09] MEDS: HEPARIN (PORCINE) 1000 UNIT/ML (DIALYSIS) IVP PRN (06:59)
[2017-01-09] MEDS: PARICALCITOL 2 MCG/ML VIAL IVP PRN (07:24)
[2017-01-11] MEDS: HEPARIN (PORCINE) 1000 UNIT/ML (DIALYSIS) IVP PRN (06:51)
[2017-01-11] MEDS: HEPARIN SOD (PORCINE) LOAD IVP PRN (06:52)
[2017-01-11] MEDS: PARICALCITOL 2 MCG/ML VIAL IVP PRN (07:11)
[2017-01-14] MEDS: HEPARIN SOD (PORCINE) LOAD IVP PRN (06:56)
[2017-01-14] MEDS: HEPARIN (PORCINE) 1000 UNIT/ML (DIALYSIS) IVP PRN (06:56)
[2017-01-14] MEDS: PARICALCITOL 2 MCG/ML VIAL IVP PRN (07:21)
[2017-01-16] MEDS: HEPARIN (PORCINE) 1000 UNIT/ML (DIALYSIS) IVP PRN (06:56)
[2017-01-16] MEDS: HEPARIN SOD (PORCINE) LOAD IVP PRN (06:56)
[2017-01-16] MEDS: PARICALCITOL 2 MCG/ML VIAL IVP PRN (07:27)
[2017-01-16 07:49] LABS: PLATELET COUNT, AUTOMATED 174 K/uL (150-450)
[2017-01-21] MEDS: HEPARIN (PORCINE) 1000 UNIT/ML (DIALYSIS) IVP PRN (06:57)
[2017-01-21] MEDS: HEPARIN SOD (PORCINE) LOAD IVP PRN (06:58)
[2017-01-21] MEDS: PARICALCITOL 2 MCG/ML VIAL IVP PRN (07:17)
[2017-01-23] MEDS: HEPARIN (PORCINE) 1000 UNIT/ML (DIALYSIS) IVP PRN (06:57)
[2017-01-23] MEDS: HEPARIN SOD (PORCINE) LOAD IVP PRN (06:57)
[2017-01-23] MEDS: PARICALCITOL 2 MCG/ML VIAL IVP PRN (07:28)
[2017-01-25] MEDS: HEPARIN (PORCINE) 1000 UNIT/ML (DIALYSIS) IVP PRN (07:04)
[2017-01-25] MEDS: HEPARIN SOD (PORCINE) LOAD IVP PRN (07:05)
[2017-01-25] MEDS: PARICALCITOL 2 MCG/ML VIAL IVP PRN (07:15)
[2017-01-28] MEDS: HEPARIN SOD (PORCINE) LOAD IVP PRN (06:54)
[2017-01-28] MEDS: HEPARIN (PORCINE) 1000 UNIT/ML (DIALYSIS) IVP PRN (06:54)
[2017-01-28] MEDS: PARICALCITOL 2 MCG/ML VIAL IVP PRN (07:28)
[2017-01-30] MEDS: HEPARIN (PORCINE) 1000 UNIT/ML (DIALYSIS) IVP PRN (06:54)
[2017-01-30] MEDS: HEPARIN SOD (PORCINE) LOAD IVP PRN (06:54)
[2017-01-30] MEDS: PARICALCITOL 2 MCG/ML VIAL IVP PRN (07:32)
[2017-02-01] MEDS: HEPARIN SOD (PORCINE) LOAD IVP PRN (06:54)
[2017-02-01] MEDS: HEPARIN (PORCINE) 1000 UNIT/ML (DIALYSIS) IVP PRN (06:55)
[2017-02-01] MEDS: PARICALCITOL 2 MCG/ML VIAL IVP PRN (07:17)
[2017-02-04] MEDS: HEPARIN SOD (PORCINE) LOAD IVP PRN (06:56)
[2017-02-04] MEDS: HEPARIN (PORCINE) 1000 UNIT/ML (DIALYSIS) IVP PRN (06:56)
[2017-02-04] MEDS: PARICALCITOL 2 MCG/ML VIAL IVP PRN (07:17)
[2017-02-06] MEDS: HEPARIN (PORCINE) 1000 UNIT/ML (DIALYSIS) IVP PRN (07:07)
[2017-02-06] MEDS: HEPARIN SOD (PORCINE) LOAD IVP PRN (07:08)
[2017-02-06] MEDS: PARICALCITOL 2 MCG/ML VIAL IVP PRN (07:38)
[2017-02-08] MEDS: HEPARIN (PORCINE) 1000 UNIT/ML (DIALYSIS) IVP PRN (07:01)
[2017-02-08] MEDS: HEPARIN SOD (PORCINE) LOAD IVP PRN (07:01)
[2017-02-08] MEDS: PARICALCITOL 2 MCG/ML VIAL IVP PRN (07:45)
[2017-02-11] MEDS: HEPARIN SOD (PORCINE) LOAD IVP PRN (06:56)
[2017-02-11] MEDS: HEPARIN (PORCINE) 1000 UNIT/ML (DIALYSIS) IVP PRN (06:57)
[2017-02-11] MEDS: PARICALCITOL 2 MCG/ML VIAL IVP PRN (07:43)
[2017-02-13] MEDS: HEPARIN SOD (PORCINE) LOAD IVP PRN (07:15)
[2017-02-13] MEDS: HEPARIN (PORCINE) 1000 UNIT/ML (DIALYSIS) IVP PRN (07:15)
[2017-02-13] MEDS: PARICALCITOL 2 MCG/ML VIAL IVP PRN (07:46)
[2017-02-15] MEDS: HEPARIN (PORCINE) 1000 UNIT/ML (DIALYSIS) IVP PRN (07:05)
[2017-02-15] MEDS: HEPARIN SOD (PORCINE) LOAD IVP PRN (07:05)
[2017-02-15] MEDS: PARICALCITOL 2 MCG/ML VIAL IVP PRN (07:31)
[2017-02-18] MEDS: HEPARIN SOD (PORCINE) LOAD IVP PRN (06:58)
[2017-02-18] MEDS: HEPARIN (PORCINE) 1000 UNIT/ML (DIALYSIS) IVP PRN (06:58)
[2017-02-18] MEDS: PARICALCITOL 2 MCG/ML VIAL IVP PRN (08:16)
[2017-02-20] MEDS: HEPARIN (PORCINE) 1000 UNIT/ML (DIALYSIS) IVP PRN (06:59)
[2017-02-20] MEDS: HEPARIN SOD (PORCINE) LOAD IVP PRN (06:59)
[2017-02-20] MEDS: PARICALCITOL 2 MCG/ML VIAL IVP PRN (07:32)
[2017-02-22] MEDS: HEPARIN (PORCINE) 1000 UNIT/ML (DIALYSIS) IVP PRN (06:50)
[2017-02-22] MEDS: HEPARIN SOD (PORCINE) LOAD IVP PRN (06:50)
[2017-02-22] MEDS: PARICALCITOL 2 MCG/ML VIAL IVP PRN (07:24)
[2017-02-25] MEDS: HEPARIN (PORCINE) 1000 UNIT/ML (DIALYSIS) IVP PRN (07:01)
[2017-02-25] MEDS: HEPARIN SOD (PORCINE) LOAD IVP PRN (07:02)
[2017-02-25] MEDS: PARICALCITOL 2 MCG/ML VIAL IVP PRN (07:22)
[2017-02-27] MEDS: HEPARIN SOD (PORCINE) LOAD IVP PRN (06:51)
[2017-02-27] MEDS: HEPARIN (PORCINE) 1000 UNIT/ML (DIALYSIS) IVP PRN (06:51)
[2017-02-27] MEDS: PARICALCITOL 2 MCG/ML VIAL IVP PRN (07:57)
[2017-02-27 08:03] LABS: PLATELET COUNT, AUTOMATED 199 K/uL (150-450)
[2017-03-01] MEDS: HEPARIN SOD (PORCINE) LOAD IVP PRN (06:57)
[2017-03-01] MEDS: HEPARIN (PORCINE) 1000 UNIT/ML (DIALYSIS) IVP PRN (06:57)
[2017-03-01] MEDS: DARBEPOETIN ESRD 100 MCG/0.5ML SYR IVP PRN (07:27)
[2017-03-01] MEDS: PARICALCITOL 2 MCG/ML VIAL IVP PRN (07:28)
[2017-03-04] MEDS: HEPARIN (PORCINE) 1000 UNIT/ML (DIALYSIS) IVP PRN (07:01)
[2017-03-04] MEDS: HEPARIN SOD (PORCINE) LOAD IVP PRN (07:02)
[2017-03-04] MEDS: LOPERAMIDE HCL 2 MG CAP PO PRN (07:37)
[2017-03-04] MEDS: PARICALCITOL 2 MCG/ML VIAL IVP PRN (07:38)
[2017-03-06] MEDS: HEPARIN SOD (PORCINE) LOAD IVP PRN (07:04)
[2017-03-06] MEDS: HEPARIN (PORCINE) 1000 UNIT/ML (DIALYSIS) IVP PRN (07:04)
[2017-03-06] MEDS: LOPERAMIDE HCL 2 MG CAP PO PRN (07:23)
[2017-03-06] MEDS: PARICALCITOL 2 MCG/ML VIAL IVP PRN (07:24)
[2017-03-08] MEDS: HEPARIN (PORCINE) 1000 UNIT/ML (DIALYSIS) IVP PRN (06:52)
[2017-03-08] MEDS: HEPARIN SOD (PORCINE) LOAD IVP PRN (06:52)
[2017-03-08] MEDS: PARICALCITOL 2 MCG/ML VIAL IVP PRN (07:18)
[2017-03-08] MEDS: DARBEPOETIN ESRD 100 MCG/0.5ML SYR IVP PRN (07:18)
[2017-03-08] MEDS: LOPERAMIDE HCL 2 MG CAP PO PRN (07:56)
[2017-03-11] MEDS: HEPARIN SOD (PORCINE) LOAD IVP PRN (06:56)
[2017-03-11] MEDS: HEPARIN (PORCINE) 1000 UNIT/ML (DIALYSIS) IVP PRN (06:56)
[2017-03-11] MEDS: PARICALCITOL 2 MCG/ML VIAL IVP PRN (07:27)
[2017-03-13] MEDS: HEPARIN (PORCINE) 1000 UNIT/ML (DIALYSIS) IVP PRN (07:02)
[2017-03-13] MEDS: HEPARIN SOD (PORCINE) LOAD IVP PRN (07:02)
[2017-03-13] MEDS: PARICALCITOL 2 MCG/ML VIAL IVP PRN (07:34)
[2017-03-13] MEDS: SODIUM FERRIC GLUC 62.5 MG/5ML IVP PRN (07:34)
[2017-03-15] MEDS: HEPARIN SOD (PORCINE) LOAD IVP PRN (06:53)
[2017-03-15] MEDS: HEPARIN (PORCINE) 1000 UNIT/ML (DIALYSIS) IVP PRN (06:53)
[2017-03-15] MEDS: PARICALCITOL 2 MCG/ML VIAL IVP PRN (07:14)
[2017-03-15] MEDS: DARBEPOETIN ESRD 100 MCG/0.5ML SYR IVP PRN (07:14)
[2017-03-18] MEDS: HEPARIN SOD (PORCINE) LOAD IVP PRN (07:02)
[2017-03-18] MEDS: HEPARIN (PORCINE) 1000 UNIT/ML (DIALYSIS) IVP PRN (07:02)
[2017-03-18] MEDS: PARICALCITOL 2 MCG/ML VIAL IVP PRN (07:33)
[2017-03-20] MEDS: HEPARIN (PORCINE) 1000 UNIT/ML (DIALYSIS) IVP PRN (06:56)
[2017-03-20] MEDS: HEPARIN SOD (PORCINE) LOAD IVP PRN (06:57)
[2017-03-20] MEDS: SODIUM FERRIC GLUC 62.5 MG/5ML IVP PRN (07:14)
[2017-03-20] MEDS: PARICALCITOL 2 MCG/ML VIAL IVP PRN (07:14)
[2017-03-22] MEDS: HEPARIN SOD (PORCINE) LOAD IVP PRN (06:50)
[2017-03-22] MEDS: HEPARIN (PORCINE) 1000 UNIT/ML (DIALYSIS) IVP PRN (06:50)
[2017-03-22] MEDS: PARICALCITOL 2 MCG/ML VIAL IVP PRN (07:19)
[2017-03-22] MEDS: DARBEPOETIN ESRD 100 MCG/0.5ML SYR IVP PRN (07:19)
[2017-03-25] MEDS: HEPARIN SOD (PORCINE) LOAD IVP PRN (06:49)
[2017-03-25] MEDS: HEPARIN (PORCINE) 1000 UNIT/ML (DIALYSIS) IVP PRN (06:49)
[2017-03-25] MEDS: PARICALCITOL 2 MCG/ML VIAL IVP PRN (07:17)
[2017-03-27] MEDS: HEPARIN SOD (PORCINE) LOAD IVP PRN (07:29)
[2017-03-27] MEDS: HEPARIN (PORCINE) 1000 UNIT/ML (DIALYSIS) IVP PRN (07:30)
[2017-03-27] MEDS: SODIUM FERRIC GLUC 62.5 MG/5ML IVP PRN (07:53)
[2017-03-27] MEDS: PARICALCITOL 2 MCG/ML VIAL IVP PRN (07:53)
[2017-03-29] MEDS: HEPARIN (PORCINE) 1000 UNIT/ML (DIALYSIS) IVP PRN (06:53)
[2017-03-29] MEDS: HEPARIN SOD (PORCINE) LOAD IVP PRN (06:53)
[2017-03-29] MEDS: PARICALCITOL 2 MCG/ML VIAL IVP PRN (07:38)
[2017-03-29] MEDS: DARBEPOETIN ESRD 100 MCG/0.5ML SYR IVP PRN (07:38)
[2017-04-01] MEDS: HEPARIN (PORCINE) 1000 UNIT/ML (DIALYSIS) IVP PRN (06:53)
[2017-04-01] MEDS: HEPARIN SOD (PORCINE) LOAD IVP PRN (06:53)
[2017-04-01] MEDS: PARICALCITOL 2 MCG/ML VIAL IVP PRN (07:50)
[2017-04-03] MEDS: HEPARIN (PORCINE) 1000 UNIT/ML (DIALYSIS) IVP PRN (06:55)
[2017-04-03] MEDS: HEPARIN SOD (PORCINE) LOAD IVP PRN (06:56)
[2017-04-03] MEDS: PARICALCITOL 2 MCG/ML VIAL IVP PRN (07:29)
[2017-04-03] MEDS: SODIUM FERRIC GLUC 62.5 MG/5ML IVP PRN (07:29)
[2017-04-03 07:34] LABS: PLATELET COUNT, AUTOMATED 241 K/uL (150-450)
[2017-04-05] MEDS: HEPARIN SOD (PORCINE) LOAD IVP PRN (06:50)
[2017-04-05] MEDS: HEPARIN (PORCINE) 1000 UNIT/ML (DIALYSIS) IVP PRN (06:50)
[2017-04-05] MEDS: PARICALCITOL 2 MCG/ML VIAL IVP PRN (07:21)
[2017-04-05] MEDS: DARBEPOETIN ESRD 25 MCG/ML IVP PRN (07:22)
[2017-04-08] MEDS: HEPARIN (PORCINE) 1000 UNIT/ML (DIALYSIS) IVP PRN (06:49)
[2017-04-08] MEDS: HEPARIN SOD (PORCINE) LOAD IVP PRN (06:49)
[2017-04-08] MEDS: PARICALCITOL 2 MCG/ML VIAL IVP PRN (07:30)
[2017-04-10] MEDS: HEPARIN (PORCINE) 1000 UNIT/ML (DIALYSIS) IVP PRN (06:56)
[2017-04-10] MEDS: HEPARIN SOD (PORCINE) LOAD IVP PRN (06:56)
[2017-04-10] MEDS: SODIUM FERRIC GLUC 62.5 MG/5ML IVP PRN (07:33)
[2017-04-10] MEDS: PARICALCITOL 2 MCG/ML VIAL IVP PRN (07:33)
[2017-04-12] MEDS: HEPARIN SOD (PORCINE) LOAD IVP PRN (06:52)
[2017-04-12] MEDS: HEPARIN (PORCINE) 1000 UNIT/ML (DIALYSIS) IVP PRN (06:52)
[2017-04-12] MEDS: DARBEPOETIN ESRD 25 MCG/ML IVP PRN (07:09)
[2017-04-12] MEDS: PARICALCITOL 2 MCG/ML VIAL IVP PRN (07:09)
[2017-04-15] MEDS: HEPARIN (PORCINE) 1000 UNIT/ML (DIALYSIS) IVP PRN (06:53)
[2017-04-15] MEDS: HEPARIN SOD (PORCINE) LOAD IVP PRN (06:53)
[2017-04-15] MEDS: PARICALCITOL 2 MCG/ML VIAL IVP PRN (07:15)
[2017-04-17] MEDS: HEPARIN SOD (PORCINE) LOAD IVP PRN (06:54)
[2017-04-17] MEDS: HEPARIN (PORCINE) 1000 UNIT/ML (DIALYSIS) IVP PRN (06:55)
[2017-04-17] MEDS: SODIUM FERRIC GLUC 62.5 MG/5ML IVP PRN (07:23)
[2017-04-17] MEDS: PARICALCITOL 2 MCG/ML VIAL IVP PRN (07:23)
[2017-04-19] MEDS: HEPARIN (PORCINE) 1000 UNIT/ML (DIALYSIS) IVP PRN (06:54)
[2017-04-19] MEDS: HEPARIN SOD (PORCINE) LOAD IVP PRN (06:55)
[2017-04-19] MEDS: PARICALCITOL 2 MCG/ML VIAL IVP PRN (07:17)
[2017-04-22] MEDS: HEPARIN (PORCINE) 1000 UNIT/ML (DIALYSIS) IVP PRN (06:55)
[2017-04-22] MEDS: HEPARIN SOD (PORCINE) LOAD IVP PRN (06:55)
[2017-04-22] MEDS: PARICALCITOL 2 MCG/ML VIAL IVP PRN (07:16)
[2017-04-24] MEDS: HEPARIN SOD (PORCINE) LOAD IVP PRN (06:55)
[2017-04-24] MEDS: HEPARIN (PORCINE) 1000 UNIT/ML (DIALYSIS) IVP PRN (06:55)
[2017-04-24] MEDS: SODIUM FERRIC GLUC 62.5 MG/5ML IVP PRN (07:23)
[2017-04-24] MEDS: PARICALCITOL 2 MCG/ML VIAL IVP PRN (07:23)
[2017-04-26] MEDS: HEPARIN SOD (PORCINE) LOAD IVP PRN (06:58)
[2017-04-26] MEDS: HEPARIN (PORCINE) 1000 UNIT/ML (DIALYSIS) IVP PRN (06:58)
[2017-04-26] MEDS: PARICALCITOL 2 MCG/ML VIAL IVP PRN (07:33)
[2017-04-29] MEDS: HEPARIN (PORCINE) 1000 UNIT/ML (DIALYSIS) IVP PRN (06:56)
[2017-04-29] MEDS: HEPARIN SOD (PORCINE) LOAD IVP PRN (06:56)
[2017-04-29] MEDS: PARICALCITOL 2 MCG/ML VIAL IVP PRN (07:32)
[2017-05-01] MEDS: HEPARIN (PORCINE) 1000 UNIT/ML (DIALYSIS) IVP PRN (06:57)
[2017-05-01] MEDS: HEPARIN SOD (PORCINE) LOAD IVP PRN (06:57)
[2017-05-01] MEDS: PARICALCITOL 2 MCG/ML VIAL IVP PRN (07:28)
[2017-05-01] MEDS: SODIUM FERRIC GLUC 62.5 MG/5ML IVP PRN (07:28)
[2017-05-01 07:36] LABS: PLATELET COUNT, AUTOMATED 198 K/uL (150-450)
[2017-05-03] MEDS: HEPARIN (PORCINE) 1000 UNIT/ML (DIALYSIS) IVP PRN (06:54)
[2017-05-03] MEDS: HEPARIN SOD (PORCINE) LOAD IVP PRN (06:54)
[2017-05-03] MEDS: PARICALCITOL 2 MCG/ML VIAL IVP PRN (07:42)
[2017-05-06] MEDS: HEPARIN SOD (PORCINE) LOAD IVP PRN (06:53)
[2017-05-06] MEDS: HEPARIN (PORCINE) 1000 UNIT/ML (DIALYSIS) IVP PRN (06:53)
[2017-05-06] MEDS: PARICALCITOL 2 MCG/ML VIAL IVP PRN (07:21)
[2017-05-08] MEDS: HEPARIN (PORCINE) 1000 UNIT/ML (DIALYSIS) IVP PRN (06:58)
[2017-05-08] MEDS: HEPARIN SOD (PORCINE) LOAD IVP PRN (06:59)
[2017-05-08] MEDS: SODIUM FERRIC GLUC 62.5 MG/5ML IVP PRN (07:54)
[2017-05-08] MEDS: PARICALCITOL 2 MCG/ML VIAL IVP PRN (07:54)
[2017-05-10] MEDS: HEPARIN (PORCINE) 1000 UNIT/ML (DIALYSIS) IVP PRN (06:54)
[2017-05-10] MEDS: HEPARIN SOD (PORCINE) LOAD IVP PRN (06:55)
[2017-05-10] MEDS: PARICALCITOL 2 MCG/ML VIAL IVP PRN (07:35)
[2017-05-13] MEDS: HEPARIN (PORCINE) 1000 UNIT/ML (DIALYSIS) IVP PRN (06:52)
[2017-05-13] MEDS: HEPARIN SOD (PORCINE) LOAD IVP PRN (06:52)
[2017-05-13] MEDS: PARICALCITOL 2 MCG/ML VIAL IVP PRN (07:29)
[2017-05-15] MEDS: HEPARIN SOD (PORCINE) LOAD IVP PRN (06:58)
[2017-05-15] MEDS: HEPARIN (PORCINE) 1000 UNIT/ML (DIALYSIS) IVP PRN (06:58)
[2017-05-15] MEDS: SODIUM FERRIC GLUC 62.5 MG/5ML IVP PRN (07:20)
[2017-05-15] MEDS: PARICALCITOL 2 MCG/ML VIAL IVP PRN (07:20)
[2017-05-17] MEDS: HEPARIN SOD (PORCINE) LOAD IVP PRN (07:00)
[2017-05-17] MEDS: HEPARIN (PORCINE) 1000 UNIT/ML (DIALYSIS) IVP PRN (07:00)
[2017-05-17] MEDS: PARICALCITOL 2 MCG/ML VIAL IVP PRN (07:13)
[2017-05-20] MEDS: HEPARIN SOD (PORCINE) LOAD IVP PRN (06:56)
[2017-05-20] MEDS: HEPARIN (PORCINE) 1000 UNIT/ML (DIALYSIS) IVP PRN (06:56)
[2017-05-20] MEDS: PARICALCITOL 2 MCG/ML VIAL IVP PRN (07:21)
[2017-05-22] MEDS: HEPARIN SOD (PORCINE) LOAD IVP PRN (06:51)
[2017-05-22] MEDS: HEPARIN (PORCINE) 1000 UNIT/ML (DIALYSIS) IVP PRN (06:51)
[2017-05-22] MEDS: PARICALCITOL 2 MCG/ML VIAL IVP PRN (07:46)
[2017-05-22] MEDS: SODIUM FERRIC GLUC 62.5 MG/5ML IVP PRN (07:46)
[2017-05-24] MEDS: HEPARIN (PORCINE) 1000 UNIT/ML (DIALYSIS) IVP PRN (06:58)
[2017-05-24] MEDS: HEPARIN SOD (PORCINE) LOAD IVP PRN (06:59)
[2017-05-24] MEDS: PARICALCITOL 2 MCG/ML VIAL IVP PRN (07:17)
[2017-05-27] MEDS: HEPARIN SOD (PORCINE) LOAD IVP PRN (06:59)
[2017-05-27] MEDS: HEPARIN (PORCINE) 1000 UNIT/ML (DIALYSIS) IVP PRN (06:59)
[2017-05-27] MEDS: PARICALCITOL 2 MCG/ML VIAL IVP PRN (07:14)
[2017-05-29] MEDS: HEPARIN (PORCINE) 1000 UNIT/ML (DIALYSIS) IVP PRN (06:56)
[2017-05-29] MEDS: HEPARIN SOD (PORCINE) LOAD IVP PRN (06:56)
[2017-05-29] MEDS: PARICALCITOL 2 MCG/ML VIAL IVP PRN (07:33)
[2017-05-29] MEDS: SODIUM FERRIC GLUC 62.5 MG/5ML IVP PRN (07:34)
[2017-05-29 07:42] LABS: PLATELET COUNT, AUTOMATED 161 K/uL (150-450)
[2017-05-31] MEDS: HEPARIN SOD (PORCINE) LOAD IVP PRN (06:54)
[2017-05-31] MEDS: HEPARIN (PORCINE) 1000 UNIT/ML (DIALYSIS) IVP PRN (06:54)
[2017-05-31] MEDS: PARICALCITOL 2 MCG/ML VIAL IVP PRN (07:46)
[2017-05-31] MEDS: DARBEPOETIN ESRD 25 MCG/ML IVP PRN (07:46)
[2017-06-03] MEDS: HEPARIN (PORCINE) 1000 UNIT/ML (DIALYSIS) IVP PRN (06:59)
[2017-06-03] MEDS: HEPARIN SOD (PORCINE) LOAD IVP PRN (07:00)
[2017-06-03] MEDS: PARICALCITOL 2 MCG/ML VIAL IVP PRN (08:26)
[2017-06-05] MEDS: HEPARIN (PORCINE) 1000 UNIT/ML (DIALYSIS) IVP PRN (07:00)
[2017-06-05] MEDS: HEPARIN SOD (PORCINE) LOAD IVP PRN (07:00)
[2017-06-05] MEDS: SODIUM FERRIC GLUC 62.5 MG/5ML IVP PRN (07:23)
[2017-06-05] MEDS: PARICALCITOL 2 MCG/ML VIAL IVP PRN (07:23)
[2017-06-07] MEDS: HEPARIN SOD (PORCINE) LOAD IVP PRN (07:03)
[2017-06-07] MEDS: HEPARIN (PORCINE) 1000 UNIT/ML (DIALYSIS) IVP PRN (07:03)
[2017-06-07] MEDS: DARBEPOETIN ESRD 25 MCG/ML IVP PRN (07:48)
[2017-06-07] MEDS: PARICALCITOL 2 MCG/ML VIAL IVP PRN (07:48)
[2017-06-10] MEDS: HEPARIN (PORCINE) 1000 UNIT/ML (DIALYSIS) IVP PRN (06:58)
[2017-06-10] MEDS: HEPARIN SOD (PORCINE) LOAD IVP PRN (06:58)
[2017-06-10] MEDS: PARICALCITOL 2 MCG/ML VIAL IVP PRN (07:14)
[2017-06-12] MEDS: HEPARIN SOD (PORCINE) LOAD IVP PRN (06:54)
[2017-06-12] MEDS: HEPARIN (PORCINE) 1000 UNIT/ML (DIALYSIS) IVP PRN (06:54)
[2017-06-12] MEDS: PARICALCITOL 2 MCG/ML VIAL IVP PRN (07:54)
[2017-06-12] MEDS: SODIUM FERRIC GLUC 62.5 MG/5ML IVP PRN (07:54)
[2017-06-14] MEDS: HEPARIN SOD (PORCINE) LOAD IVP PRN (06:49)
[2017-06-14] MEDS: HEPARIN (PORCINE) 1000 UNIT/ML (DIALYSIS) IVP PRN (06:49)
[2017-06-14] MEDS: DARBEPOETIN ESRD 40MCG/ML IVP PRN (07:38)
[2017-06-14] MEDS: PARICALCITOL 2 MCG/ML VIAL IVP PRN (07:39)
[2017-06-17] MEDS: HEPARIN SOD (PORCINE) LOAD IVP PRN (06:51)
[2017-06-17] MEDS: HEPARIN (PORCINE) 1000 UNIT/ML (DIALYSIS) IVP PRN (06:51)
[2017-06-17] MEDS: PARICALCITOL 2 MCG/ML VIAL IVP PRN (07:22)
[2017-06-19] MEDS: HEPARIN (PORCINE) 1000 UNIT/ML (DIALYSIS) IVP PRN (07:00)
[2017-06-19] MEDS: HEPARIN SOD (PORCINE) LOAD IVP PRN (07:00)
[2017-06-19] MEDS: PARICALCITOL 2 MCG/ML VIAL IVP PRN (07:27)
[2017-06-19] MEDS: SODIUM FERRIC GLUC 62.5 MG/5ML IVP PRN (07:27)
[2017-06-21] MEDS: HEPARIN (PORCINE) 1000 UNIT/ML (DIALYSIS) IVP PRN (06:55)
[2017-06-21] MEDS: HEPARIN SOD (PORCINE) LOAD IVP PRN (06:55)
[2017-06-24] MEDS: HEPARIN (PORCINE) 1000 UNIT/ML (DIALYSIS) IVP PRN (06:50)
[2017-06-24] MEDS: HEPARIN SOD (PORCINE) LOAD IVP PRN (06:50)
[2017-06-24] MEDS: PARICALCITOL 2 MCG/ML VIAL IVP PRN (07:24)
[2017-06-26] MEDS: HEPARIN (PORCINE) 1000 UNIT/ML (DIALYSIS) IVP PRN (06:59)
[2017-06-26] MEDS: HEPARIN SOD (PORCINE) LOAD IVP PRN (06:59)
[2017-06-26] MEDS: SODIUM FERRIC GLUC 62.5 MG/5ML IVP PRN (07:37)
[2017-06-26] MEDS: PARICALCITOL 2 MCG/ML VIAL IVP PRN (07:37)
[2017-06-26 07:41] LABS: PLATELET COUNT, AUTOMATED 221 K/uL (150-450)
[2017-06-28] MEDS: HEPARIN SOD (PORCINE) LOAD IVP PRN (06:51)
[2017-06-28] MEDS: HEPARIN (PORCINE) 1000 UNIT/ML (DIALYSIS) IVP PRN (06:52)
[2017-06-28] MEDS: DARBEPOETIN ESRD 40MCG/ML IVP PRN (07:11)
[2017-06-28] MEDS: PARICALCITOL 2 MCG/ML VIAL IVP PRN (07:11)
[2017-07-01] MEDS: HEPARIN (PORCINE) 1000 UNIT/ML (DIALYSIS) IVP PRN (06:57)
[2017-07-01] MEDS: HEPARIN SOD (PORCINE) LOAD IVP PRN (06:57)
[2017-07-01] MEDS: PARICALCITOL 2 MCG/ML VIAL IVP PRN (07:24)
[2017-07-03] MEDS: HEPARIN (PORCINE) 1000 UNIT/ML (DIALYSIS) IVP PRN (07:06)
[2017-07-03] MEDS: HEPARIN SOD (PORCINE) LOAD IVP PRN (07:06)
[2017-07-03] MEDS: SODIUM FERRIC GLUC 62.5 MG/5ML IVP PRN (07:38)
[2017-07-03] MEDS: PARICALCITOL 2 MCG/ML VIAL IVP PRN (07:39)
[2017-07-05] MEDS: HEPARIN (PORCINE) 1000 UNIT/ML (DIALYSIS) IVP PRN (06:55)
[2017-07-05] MEDS: HEPARIN SOD (PORCINE) LOAD IVP PRN (06:55)
[2017-07-05] MEDS: DARBEPOETIN ESRD 40MCG/ML IVP PRN (07:18)
[2017-07-05] MEDS: PARICALCITOL 2 MCG/ML VIAL IVP PRN (07:18)
[2017-07-08] MEDS: HEPARIN SOD (PORCINE) LOAD IVP PRN (06:52)
[2017-07-08] MEDS: HEPARIN (PORCINE) 1000 UNIT/ML (DIALYSIS) IVP PRN (06:52)
[2017-07-08] MEDS: PARICALCITOL 2 MCG/ML VIAL IVP PRN (07:26)
[2017-07-10] MEDS: HEPARIN SOD (PORCINE) LOAD IVP PRN (06:58)
[2017-07-10] MEDS: HEPARIN (PORCINE) 1000 UNIT/ML (DIALYSIS) IVP PRN (06:58)
[2017-07-10] MEDS: SODIUM FERRIC GLUC 62.5 MG/5ML IVP PRN (07:56)
[2017-07-10] MEDS: PARICALCITOL 2 MCG/ML VIAL IVP PRN (07:57)
[2017-07-12] MEDS: HEPARIN SOD (PORCINE) LOAD IVP PRN (06:56)
[2017-07-12] MEDS: HEPARIN (PORCINE) 1000 UNIT/ML (DIALYSIS) IVP PRN (06:56)
[2017-07-12] MEDS: DARBEPOETIN ESRD 40MCG/ML IVP PRN (07:34)
[2017-07-12] MEDS: PARICALCITOL 2 MCG/ML VIAL IVP PRN (07:34)
[2017-07-15] MEDS: HEPARIN SOD (PORCINE) LOAD IVP PRN (07:05)
[2017-07-15] MEDS: HEPARIN (PORCINE) 1000 UNIT/ML (DIALYSIS) IVP PRN (07:05)
[2017-07-15] MEDS: PARICALCITOL 2 MCG/ML VIAL IVP PRN (07:36)
[2017-07-17] MEDS: HEPARIN SOD (PORCINE) LOAD IVP PRN (06:52)
[2017-07-17] MEDS: HEPARIN (PORCINE) 1000 UNIT/ML (DIALYSIS) IVP PRN (06:52)
[2017-07-17] MEDS: PARICALCITOL 2 MCG/ML VIAL IVP PRN (07:35)
[2017-07-17] MEDS: SODIUM FERRIC GLUC 62.5 MG/5ML IVP PRN (07:35)
[2017-07-19] MEDS: HEPARIN SOD (PORCINE) LOAD IVP PRN (06:53)
[2017-07-19] MEDS: HEPARIN (PORCINE) 1000 UNIT/ML (DIALYSIS) IVP PRN (06:53)
[2017-07-19] MEDS: DARBEPOETIN ESRD 40MCG/ML IVP PRN (07:37)
[2017-07-19] MEDS: PARICALCITOL 2 MCG/ML VIAL IVP PRN (07:37)
[2017-07-22] MEDS: HEPARIN (PORCINE) 1000 UNIT/ML (DIALYSIS) IVP PRN (06:53)
[2017-07-22] MEDS: HEPARIN SOD (PORCINE) LOAD IVP PRN (06:54)
[2017-07-22] MEDS: PARICALCITOL 2 MCG/ML VIAL IVP PRN (07:29)
[2017-07-24] MEDS: HEPARIN SOD (PORCINE) LOAD IVP PRN (06:55)
[2017-07-24] MEDS: HEPARIN (PORCINE) 1000 UNIT/ML (DIALYSIS) IVP PRN (06:55)
[2017-07-24] MEDS: PARICALCITOL 2 MCG/ML VIAL IVP PRN (07:29)
[2017-07-24] MEDS: SODIUM FERRIC GLUC 62.5 MG/5ML IVP PRN (07:29)
[2017-07-24 07:47] LABS: PLATELET COUNT, AUTOMATED 218 K/uL (150-450)
[2017-07-26] MEDS: HEPARIN SOD (PORCINE) LOAD IVP PRN (06:54)
[2017-07-26] MEDS: HEPARIN (PORCINE) 1000 UNIT/ML (DIALYSIS) IVP PRN (06:54)
[2017-07-26] MEDS: PARICALCITOL 2 MCG/ML VIAL IVP PRN (07:21)
[2017-07-26] MEDS: DARBEPOETIN ESRD 25 MCG/ML IVP PRN (07:21)
[2017-07-29] MEDS: HEPARIN (PORCINE) 1000 UNIT/ML (DIALYSIS) IVP PRN (06:52)
[2017-07-29] MEDS: HEPARIN SOD (PORCINE) LOAD IVP PRN (06:53)
[2017-07-29] MEDS: PARICALCITOL 2 MCG/ML VIAL IVP PRN (07:55)
[2017-07-31] MEDS: HEPARIN SOD (PORCINE) LOAD IVP PRN (06:52)
[2017-07-31] MEDS: HEPARIN (PORCINE) 1000 UNIT/ML (DIALYSIS) IVP PRN (06:52)
[2017-07-31] MEDS: PARICALCITOL 2 MCG/ML VIAL IVP PRN (07:22)
[2017-07-31] MEDS: SODIUM FERRIC GLUC 62.5 MG/5ML IVP PRN (07:22)
[2017-08-02] MEDS: HEPARIN SOD (PORCINE) LOAD IVP PRN (06:52)
[2017-08-02] MEDS: HEPARIN (PORCINE) 1000 UNIT/ML (DIALYSIS) IVP PRN (06:52)
[2017-08-02] MEDS: PARICALCITOL 2 MCG/ML VIAL IVP PRN (07:24)
[2017-08-02] MEDS: DARBEPOETIN ESRD 25 MCG/ML IVP PRN (07:24)
[2017-08-05] MEDS: HEPARIN SOD (PORCINE) LOAD IVP PRN (06:56)
[2017-08-05] MEDS: HEPARIN (PORCINE) 1000 UNIT/ML (DIALYSIS) IVP PRN (06:56)
[2017-08-05] MEDS: PARICALCITOL 2 MCG/ML VIAL IVP PRN (07:41)
[2017-08-07] MEDS: HEPARIN SOD (PORCINE) LOAD IVP PRN (06:57)
[2017-08-07] MEDS: HEPARIN (PORCINE) 1000 UNIT/ML (DIALYSIS) IVP PRN (06:57)
[2017-08-07] MEDS: SODIUM FERRIC GLUC 62.5 MG/5ML IVP PRN (07:31)
[2017-08-07] MEDS: PARICALCITOL 2 MCG/ML VIAL IVP PRN (07:31)
[2017-08-09] MEDS: HEPARIN SOD (PORCINE) LOAD IVP PRN (06:48)
[2017-08-09] MEDS: HEPARIN (PORCINE) 1000 UNIT/ML (DIALYSIS) IVP PRN (06:48)
[2017-08-09] MEDS: DARBEPOETIN ESRD 25 MCG/ML IVP PRN (07:28)
[2017-08-09] MEDS: PARICALCITOL 2 MCG/ML VIAL IVP PRN (07:28)
[2017-08-12] MEDS: HEPARIN SOD (PORCINE) LOAD IVP PRN (06:54)
[2017-08-12] MEDS: HEPARIN (PORCINE) 1000 UNIT/ML (DIALYSIS) IVP PRN (06:54)
[2017-08-12] MEDS: PARICALCITOL 2 MCG/ML VIAL IVP PRN (07:21)
[2017-08-14] MEDS: HEPARIN SOD (PORCINE) LOAD IVP PRN (06:28)
[2017-08-14] MEDS: HEPARIN (PORCINE) 1000 UNIT/ML (DIALYSIS) IVP PRN (06:28)
[2017-08-14] MEDS: SODIUM FERRIC GLUC 62.5 MG/5ML IVP PRN (07:06)
[2017-08-14] MEDS: PARICALCITOL 2 MCG/ML VIAL IVP PRN (07:08)
[2017-08-16] MEDS: HEPARIN SOD (PORCINE) LOAD IVP PRN (06:40)
[2017-08-16] MEDS: HEPARIN (PORCINE) 1000 UNIT/ML (DIALYSIS) IVP PRN (06:40)
[2017-08-16] MEDS: PARICALCITOL 2 MCG/ML VIAL IVP PRN (07:05)
[2017-08-16] MEDS: DARBEPOETIN ESRD 25 MCG/ML IVP PRN (07:05)
[2017-08-19] MEDS: HEPARIN SOD (PORCINE) LOAD IVP PRN (06:35)
[2017-08-19] MEDS: HEPARIN (PORCINE) 1000 UNIT/ML (DIALYSIS) IVP PRN (06:35)
[2017-08-19] MEDS: PARICALCITOL 2 MCG/ML VIAL IVP PRN (07:09)
[2017-08-21] MEDS: HEPARIN SOD (PORCINE) LOAD IVP PRN (06:34)
[2017-08-21] MEDS: HEPARIN (PORCINE) 1000 UNIT/ML (DIALYSIS) IVP PRN (06:34)
[2017-08-21] MEDS: PARICALCITOL 2 MCG/ML VIAL IVP PRN (07:11)
[2017-08-21] MEDS: SODIUM FERRIC GLUC 62.5 MG/5ML IVP PRN (07:11)
[2017-08-23] MEDS: HEPARIN (PORCINE) 1000 UNIT/ML (DIALYSIS) IVP PRN (06:32)
[2017-08-23] MEDS: HEPARIN SOD (PORCINE) LOAD IVP PRN (06:32)
[2017-08-23] MEDS: DARBEPOETIN ESRD 25 MCG/ML IVP PRN (06:54)
[2017-08-23] MEDS: PARICALCITOL 2 MCG/ML VIAL IVP PRN (06:54)
[2017-08-26] MEDS: HEPARIN (PORCINE) 1000 UNIT/ML (DIALYSIS) IVP PRN (06:35)
[2017-08-26] MEDS: HEPARIN SOD (PORCINE) LOAD IVP PRN (06:35)
[2017-08-26] MEDS: PARICALCITOL 2 MCG/ML VIAL IVP PRN (07:08)
[2017-08-28] MEDS: HEPARIN SOD (PORCINE) LOAD IVP PRN (06:31)
[2017-08-28] MEDS: HEPARIN (PORCINE) 1000 UNIT/ML (DIALYSIS) IVP PRN (06:31)
[2017-08-28] MEDS: SODIUM FERRIC GLUC 62.5 MG/5ML IVP PRN (07:11)
[2017-08-28] MEDS: PARICALCITOL 2 MCG/ML VIAL IVP PRN (07:12)
[2017-08-28 07:38] LABS: PLATELET COUNT, AUTOMATED 194 K/uL (150-450)
[2017-08-30] MEDS: HEPARIN (PORCINE) 1000 UNIT/ML (DIALYSIS) IVP PRN (06:24)
[2017-08-30] MEDS: HEPARIN SOD (PORCINE) LOAD IVP PRN (06:25)
[2017-08-30] MEDS: PARICALCITOL 2 MCG/ML VIAL IVP PRN (07:20)
[2017-08-30] MEDS: DARBEPOETIN ESRD 25 MCG/ML IVP PRN (07:20)
[2017-09-02] MEDS: HEPARIN (PORCINE) 1000 UNIT/ML (DIALYSIS) IVP PRN (06:35)
[2017-09-02] MEDS: HEPARIN SOD (PORCINE) LOAD IVP PRN (06:35)
[2017-09-02] MEDS: PARICALCITOL 2 MCG/ML VIAL IVP PRN (06:59)
[2017-09-04] MEDS: HEPARIN SOD (PORCINE) LOAD IVP PRN (06:55)
[2017-09-04] MEDS: HEPARIN (PORCINE) 1000 UNIT/ML (DIALYSIS) IVP PRN (06:55)
[2017-09-04] MEDS: PARICALCITOL 2 MCG/ML VIAL IVP PRN (07:26)
[2017-09-04] MEDS: SODIUM FERRIC GLUC 62.5 MG/5ML IVP PRN (07:26)
[2017-09-06] MEDS: HEPARIN (PORCINE) 1000 UNIT/ML (DIALYSIS) IVP PRN (06:37)
[2017-09-06] MEDS: HEPARIN SOD (PORCINE) LOAD IVP PRN (06:37)
[2017-09-06] MEDS: DARBEPOETIN ESRD 25 MCG/ML IVP PRN (07:08)
[2017-09-06] MEDS: PARICALCITOL 2 MCG/ML VIAL IVP PRN (07:08)
[2017-09-09] MEDS: HEPARIN (PORCINE) 1000 UNIT/ML (DIALYSIS) IVP PRN (06:37)
[2017-09-09] MEDS: HEPARIN SOD (PORCINE) LOAD IVP PRN (06:37)
[2017-09-09] MEDS: PARICALCITOL 2 MCG/ML VIAL IVP PRN (07:04)
[2017-09-11] MEDS: HEPARIN SOD (PORCINE) LOAD IVP PRN (06:38)
[2017-09-11] MEDS: HEPARIN (PORCINE) 1000 UNIT/ML (DIALYSIS) IVP PRN (06:38)
[2017-09-11] MEDS: PARICALCITOL 2 MCG/ML VIAL IVP PRN (07:42)
[2017-09-11] MEDS: SODIUM FERRIC GLUC 62.5 MG/5ML IVP PRN (07:42)
[2017-09-13] MEDS: HEPARIN SOD (PORCINE) LOAD IVP PRN (06:35)
[2017-09-13] MEDS: HEPARIN (PORCINE) 1000 UNIT/ML (DIALYSIS) IVP PRN (06:36)
[2017-09-13] MEDS: PARICALCITOL 2 MCG/ML VIAL IVP PRN (07:24)
[2017-09-16] MEDS: HEPARIN SOD (PORCINE) LOAD IVP PRN (06:28)
[2017-09-16] MEDS: HEPARIN (PORCINE) 1000 UNIT/ML (DIALYSIS) IVP PRN (06:28)
[2017-09-16] MEDS: PARICALCITOL 2 MCG/ML VIAL IVP PRN (08:42)
[2017-09-18] MEDS: HEPARIN (PORCINE) 1000 UNIT/ML (DIALYSIS) IVP PRN (06:30)
[2017-09-18] MEDS: HEPARIN SOD (PORCINE) LOAD IVP PRN (06:30)
[2017-09-18] MEDS: PARICALCITOL 2 MCG/ML VIAL IVP PRN (07:11)
[2017-09-18] MEDS: SODIUM FERRIC GLUC 62.5 MG/5ML IVP PRN (07:11)
[2017-09-20] MEDS: HEPARIN SOD (PORCINE) LOAD IVP PRN (06:32)
[2017-09-20] MEDS: HEPARIN (PORCINE) 1000 UNIT/ML (DIALYSIS) IVP PRN (06:32)
[2017-09-20] MEDS: PARICALCITOL 2 MCG/ML VIAL IVP PRN (07:26)
[2017-09-23] MEDS: HEPARIN (PORCINE) 1000 UNIT/ML (DIALYSIS) IVP PRN (06:29)
[2017-09-23] MEDS: HEPARIN SOD (PORCINE) LOAD IVP PRN (06:30)
[2017-09-23] MEDS: PARICALCITOL 2 MCG/ML VIAL IVP PRN (06:55)
[2017-09-25] MEDS: HEPARIN SOD (PORCINE) LOAD IVP PRN (06:41)
[2017-09-25] MEDS: HEPARIN (PORCINE) 1000 UNIT/ML (DIALYSIS) IVP PRN (06:41)
[2017-09-25] MEDS: SODIUM FERRIC GLUC 62.5 MG/5ML IVP PRN (07:32)
[2017-09-25] MEDS: PARICALCITOL 2 MCG/ML VIAL IVP PRN (07:33)
[2017-09-27] MEDS: HEPARIN (PORCINE) 1000 UNIT/ML (DIALYSIS) IVP PRN (06:32)
[2017-09-27] MEDS: HEPARIN SOD (PORCINE) LOAD IVP PRN (06:32)
[2017-09-27] MEDS: PARICALCITOL 2 MCG/ML VIAL IVP PRN (07:50)
[2017-09-30] MEDS: HEPARIN (PORCINE) 1000 UNIT/ML (DIALYSIS) IVP PRN (06:32)
[2017-09-30] MEDS: HEPARIN SOD (PORCINE) LOAD IVP PRN (06:33)
[2017-09-30] MEDS: PARICALCITOL 2 MCG/ML VIAL IVP PRN (06:59)
[2017-10-02] MEDS: HEPARIN SOD (PORCINE) LOAD IVP PRN (06:29)
[2017-10-02] MEDS: HEPARIN (PORCINE) 1000 UNIT/ML (DIALYSIS) IVP PRN (06:29)
[2017-10-02] MEDS: SODIUM FERRIC GLUC 62.5 MG/5ML IVP PRN (07:10)
[2017-10-02] MEDS: PARICALCITOL 2 MCG/ML VIAL IVP PRN (07:10)
[2017-10-02 07:18] LABS: PLATELET COUNT, AUTOMATED 157 K/uL (150-450)
[2017-10-05] MEDS: HEPARIN SOD (PORCINE) LOAD IVP PRN (06:31)
[2017-10-05] MEDS: HEPARIN (PORCINE) 1000 UNIT/ML (DIALYSIS) IVP PRN (06:31)
[2017-10-05] MEDS: PARICALCITOL 2 MCG/ML VIAL IVP PRN (07:37)
[2017-10-07] MEDS: HEPARIN (PORCINE) 1000 UNIT/ML (DIALYSIS) IVP PRN (06:38)
[2017-10-07] MEDS: HEPARIN SOD (PORCINE) LOAD IVP PRN (06:39)
[2017-10-07] MEDS: PARICALCITOL 2 MCG/ML VIAL IVP PRN (07:16)
[2017-10-09] MEDS: HEPARIN (PORCINE) 1000 UNIT/ML (DIALYSIS) IVP PRN (06:40)
[2017-10-09] MEDS: HEPARIN SOD (PORCINE) LOAD IVP PRN (06:40)
[2017-10-09] MEDS: SODIUM FERRIC GLUC 62.5 MG/5ML IVP PRN (07:12)
[2017-10-09] MEDS: PARICALCITOL 2 MCG/ML VIAL IVP PRN (07:12)
[2017-10-11] MEDS: HEPARIN SOD (PORCINE) LOAD IVP PRN (06:32)
[2017-10-11] MEDS: HEPARIN (PORCINE) 1000 UNIT/ML (DIALYSIS) IVP PRN (06:32)
[2017-10-11] MEDS: PARICALCITOL 2 MCG/ML VIAL IVP PRN (08:21)
[2017-10-14] MEDS: HEPARIN SOD (PORCINE) LOAD IVP PRN (06:31)
[2017-10-14] MEDS: HEPARIN (PORCINE) 1000 UNIT/ML (DIALYSIS) IVP PRN (06:31)
[2017-10-14] MEDS: PARICALCITOL 2 MCG/ML VIAL IVP PRN (07:10)
[2017-10-16] MEDS: HEPARIN (PORCINE) 1000 UNIT/ML (DIALYSIS) IVP PRN (06:40)
[2017-10-16] MEDS: HEPARIN SOD (PORCINE) LOAD IVP PRN (06:40)
[2017-10-16] MEDS: PARICALCITOL 2 MCG/ML VIAL IVP PRN (07:22)
[2017-10-16] MEDS: SODIUM FERRIC GLUC 62.5 MG/5ML IVP PRN (07:22)
[2017-10-16 07:42] LABS: PLATELET COUNT, AUTOMATED 178 K/uL (150-450)
[2017-10-18] MEDS: HEPARIN (PORCINE) 1000 UNIT/ML (DIALYSIS) IVP PRN (06:36)
[2017-10-18] MEDS: HEPARIN SOD (PORCINE) LOAD IVP PRN (06:36)
[2017-10-18] MEDS: PARICALCITOL 2 MCG/ML VIAL IVP PRN (07:14)
[2017-10-21] MEDS: HEPARIN (PORCINE) 1000 UNIT/ML (DIALYSIS) IVP PRN (06:31)
[2017-10-21] MEDS: HEPARIN SOD (PORCINE) LOAD IVP PRN (06:31)
[2017-10-21] MEDS: PARICALCITOL 2 MCG/ML VIAL IVP PRN (07:24)
[2017-10-23] MEDS: HEPARIN SOD (PORCINE) LOAD IVP PRN (06:38)
[2017-10-23] MEDS: HEPARIN (PORCINE) 1000 UNIT/ML (DIALYSIS) IVP PRN (06:38)
[2017-10-23] MEDS: PARICALCITOL 2 MCG/ML VIAL IVP PRN (07:02)
[2017-10-23] MEDS: SODIUM FERRIC GLUC 62.5 MG/5ML IVP PRN (07:02)
[2017-10-25] MEDS: HEPARIN SOD (PORCINE) LOAD IVP PRN (06:36)
[2017-10-25] MEDS: HEPARIN (PORCINE) 1000 UNIT/ML (DIALYSIS) IVP PRN (06:36)
[2017-10-25] MEDS: PARICALCITOL 2 MCG/ML VIAL IVP PRN (07:23)
[2017-10-28] MEDS: HEPARIN (PORCINE) 1000 UNIT/ML (DIALYSIS) IVP PRN (06:36)
[2017-10-28] MEDS: HEPARIN SOD (PORCINE) LOAD IVP PRN (06:37)
[2017-10-28] MEDS: PARICALCITOL 2 MCG/ML VIAL IVP PRN (07:07)
[2017-10-30] MEDS: HEPARIN SOD (PORCINE) LOAD IVP PRN (06:38)
[2017-10-30] MEDS: HEPARIN (PORCINE) 1000 UNIT/ML (DIALYSIS) IVP PRN (06:38)
[2017-10-30] MEDS: SODIUM FERRIC GLUC 62.5 MG/5ML IVP PRN (07:28)
[2017-10-30] MEDS: PARICALCITOL 2 MCG/ML VIAL IVP PRN (07:29)
[2017-11-01] MEDS: HEPARIN (PORCINE) 1000 UNIT/ML (DIALYSIS) IVP PRN (06:33)
[2017-11-01] MEDS: HEPARIN SOD (PORCINE) LOAD IVP PRN (06:33)
[2017-11-01] MEDS: PARICALCITOL 2 MCG/ML VIAL IVP PRN (07:11)
[2017-11-03] MEDS: HEPARIN (PORCINE) 1000 UNIT/ML (DIALYSIS) IVP PRN (06:40)
[2017-11-03] MEDS: HEPARIN SOD (PORCINE) LOAD IVP PRN (06:40)
[2017-11-03] MEDS: PARICALCITOL 2 MCG/ML VIAL IVP PRN (07:37)
[2017-11-06] MEDS: HEPARIN (PORCINE) 1000 UNIT/ML (DIALYSIS) IVP PRN (06:52)
[2017-11-06] MEDS: HEPARIN SOD (PORCINE) LOAD IVP PRN (06:52)
[2017-11-06] MEDS: PARICALCITOL 2 MCG/ML VIAL IVP PRN (07:42)
[2017-11-06] MEDS: SODIUM FERRIC GLUC 62.5 MG/5ML IVP PRN (07:42)
[2017-11-08] MEDS: HEPARIN SOD (PORCINE) LOAD IVP PRN (06:37)
[2017-11-08] MEDS: HEPARIN (PORCINE) 1000 UNIT/ML (DIALYSIS) IVP PRN (06:37)
[2017-11-08] MEDS: PARICALCITOL 2 MCG/ML VIAL IVP PRN (07:22)
[~2017-11-11] VITALS: Ht 188 cm; Wt 142.2 kg
[~2017-11-11 09:24] MED LIST changes: +DARBEPOETIN 40 MCG/ML IVP ONE; +DARBEPOETIN ESRD 100 MCG/0.5ML SYR IVP PRN; +DARBEPOETIN ESRD 25 MCG/ML IVP PRN; +DARBEPOETIN ESRD 40MCG/ML IVP ONE; +DARBEPOETIN ESRD 40MCG/ML IVP PRN; +HEPATITIS B(DIAL) VAC 20MCG/ML 1 ML VIAL IM ONLY ONE; +INFLUENZA VIRUS VAC 0.5 ML SYR IM ONLY ONE; -LOPERAMIDE HCL 2 MG CAP PO PRN
== END | disposition home or self-care (01) ==
LOC: DIAL 11-09 08:27
PROVIDERS: ATTEND Internal Medicine Nephrology
DX: I12.0 Hypertensive chronic kidney disease with stage 5 chronic kidney disease or end stage renal disease (principal); N18.6 End stage renal disease; E78.5 Hyperlipidemia, unspecified; D64.2 Secondary sideroblastic anemia due to drugs and toxins; E11.22 Type 2 diabetes mellitus with diabetic chronic kidney disease; G47.33 Obstructive sleep apnea (adult) (pediatric); Z95.2 Presence of prosthetic heart valve; I50.22 Chronic systolic (congestive) heart failure; I34.8 Other nonrheumatic mitral valve disorders; Z99.2 Dependence on renal dialysis; D63.1 Anemia in chronic kidney disease; E66.9 Obesity, unspecified; Z88.8 Allergy status to other drugs, medicaments and biological substances; Z88.0 Allergy status to penicillin; Z68.41 Body mass index [BMI] 40.0-44.9, adult; Z23 Encounter for immunization
CPT/HCPCS: 82040; 82108; 82247; 82310; 82374; 82435; 82465; 82565; 82728; 82947; 83036; 83540; 83550; 83970; 84075; 84100; 84132; 84295; 84460; 84478; 84520; 85018; 85025; 86580; 86706; 87340; 90747; 90999; A4657; A9270; G0008; G0010; G0472; J0882; J2501; J2916; Q2037; 86803; 90658; 90674

== ENCOUNTER → 2018-01-23 | Outpatient (CLI) | payer MEDICARE, BC ==
[~2018-01-23] MED LIST changes: -DARBEPOETIN 40 MCG/ML IVP ONE; -DARBEPOETIN ESRD 100 MCG/0.5ML SYR IVP PRN; -DARBEPOETIN ESRD 25 MCG/ML IVP PRN; -DARBEPOETIN ESRD 40MCG/ML IVP ONE; -DARBEPOETIN ESRD 40MCG/ML IVP PRN; -DEXTROSE 50% 50 ML SYR IVP PRN; -DIALYSIS ACETAMINOPHEN 325 MG PO PRN; -HEPATITIS B(DIAL) VAC 20MCG/ML 1 ML VIAL IM ONLY ONE; -INFLUENZA VIRUS VAC 0.5 ML SYR IM ONLY ONE; -diphenhydr DIALYSIS 50 MG/ML IVP PRN
== END ==
LOC: RESP 19:24
PROVIDERS: ATTEND Internal Medicine
DX: G47.33 Obstructive sleep apnea (adult) (pediatric) (principal); G47.37 Central sleep apnea in conditions classified elsewhere; E66.9 Obesity, unspecified

== ENCOUNTER → 2018-08-12 | Outpatient (CLI) | payer MEDICARE, BC | LOC: US 00:36 | PROVIDERS: ATTEND Internal Medicine Cardiovascular Disease | DX: I51.7 Cardiomegaly (principal); I70.0 Atherosclerosis of aorta; I34.0 Nonrheumatic mitral (valve) insufficiency; Z95.2 Presence of prosthetic heart valve | CPT/HCPCS: 93306 ==

== ENCOUNTER 2018-11-11 00:11 | Outpatient (RCR) | payer MEDICARE, BC ==
[~2018-11-11 00:11] MED LIST changes: +DIALYSIS ACETAMINOPHEN 325 MG PO PRN; +LOPERAMIDE HCL 2 MG CAP PO PRN; +PROMETHAZINE HCL 25 MG TAB PO PRN; +diphenhydr DIALYSIS 50 MG/ML IVP PRN
[2018-11-12] MEDS: HEPARIN (PORCINE) 1000 UNIT/ML (DIALYSIS) IVP PRN ×2 (06:26)
[2018-11-12] MEDS: PARICALCITOL 2 MCG/ML VIAL IVP PRN (07:51)
[2018-11-12] MEDS: [UNRECOGNIZED DRUG - OTHER] IVP PRN (11:01)
[2018-11-14] MEDS ORDERED: DARBEPOETIN ESRD 25 MCG/ML IVP PRN
[2018-11-14] MEDS: HEPARIN (PORCINE) 1000 UNIT/ML (DIALYSIS) IVP PRN ×2 (06:25)
[2018-11-14] MEDS: PARICALCITOL 2 MCG/ML VIAL IVP PRN (07:08)
[2018-11-14] MEDS: DARBEPOETIN ESRD 25 MCG/ML IVP PRN (07:08)
[2018-11-17] MEDS: HEPARIN (PORCINE) 1000 UNIT/ML (DIALYSIS) IVP PRN ×2 (06:25→06:26)
[2018-11-17] MEDS: PARICALCITOL 2 MCG/ML VIAL IVP PRN (08:00)
[2018-11-17] MEDS: [UNRECOGNIZED DRUG - OTHER] IVP PRN (11:11)
[2018-11-19] MEDS: HEPARIN (PORCINE) 1000 UNIT/ML (DIALYSIS) IVP PRN ×2 (06:18)
[2018-11-19] MEDS: PARICALCITOL 2 MCG/ML VIAL IVP PRN (07:07)
[2018-11-19] MEDS: [UNRECOGNIZED DRUG - OTHER] IVP PRN (11:00)
[2018-11-21] MEDS: HEPARIN (PORCINE) 1000 UNIT/ML (DIALYSIS) IVP PRN ×2 (06:31→06:32)
[2018-11-21] MEDS: PARICALCITOL 2 MCG/ML VIAL IVP PRN (08:18)
[2018-11-21] MEDS: DARBEPOETIN ESRD 25 MCG/ML IVP PRN (08:18)
[2018-11-21] MEDS: [UNRECOGNIZED DRUG - OTHER] IVP PRN (11:06)
[2018-11-24] MEDS: HEPARIN (PORCINE) 1000 UNIT/ML (DIALYSIS) IVP PRN ×2 (06:25)
[2018-11-24] MEDS: PARICALCITOL 2 MCG/ML VIAL IVP PRN (07:22)
[2018-11-24] MEDS: [UNRECOGNIZED DRUG - OTHER] IVP PRN (10:48)
[2018-11-26] MEDS: HEPARIN (PORCINE) 1000 UNIT/ML (DIALYSIS) IVP PRN ×2 (06:23)
[2018-11-26] MEDS: PARICALCITOL 2 MCG/ML VIAL IVP PRN (07:05)
[2018-11-26] MEDS: [UNRECOGNIZED DRUG - OTHER] IVP PRN (11:09)
[2018-11-28] MEDS: HEPARIN (PORCINE) 1000 UNIT/ML (DIALYSIS) IVP PRN ×2 (06:26)
[2018-11-28] MEDS: PARICALCITOL 2 MCG/ML VIAL IVP PRN (07:39)
[2018-11-28] MEDS: DARBEPOETIN ESRD 25 MCG/ML IVP PRN (07:39)
[2018-11-28] MEDS: [UNRECOGNIZED DRUG - OTHER] IVP PRN (11:00)
[2018-12-01] MEDS: HEPARIN (PORCINE) 1000 UNIT/ML (DIALYSIS) IVP PRN ×2 (06:25)
[2018-12-01] MEDS: PARICALCITOL 2 MCG/ML VIAL IVP PRN (06:58)
[2018-12-01] MEDS: [UNRECOGNIZED DRUG - OTHER] IVP PRN (10:58)
[2018-12-03] MEDS: HEPARIN (PORCINE) 1000 UNIT/ML (DIALYSIS) IVP PRN ×2 (06:18)
[2018-12-03] MEDS: PARICALCITOL 2 MCG/ML VIAL IVP PRN (07:38)
[2018-12-03 07:51] LABS: PLATELET COUNT, AUTOMATED 200 K/uL (150-450)
[2018-12-03] MEDS: [UNRECOGNIZED DRUG - OTHER] IVP PRN (10:44)
[2018-12-05] MEDS: HEPARIN (PORCINE) 1000 UNIT/ML (DIALYSIS) IVP PRN ×2 (06:21)
[2018-12-05] MEDS: PARICALCITOL 2 MCG/ML VIAL IVP PRN (07:19)
[2018-12-05] MEDS: DARBEPOETIN ESRD 25 MCG/ML IVP PRN (07:19)
[2018-12-05] MEDS: [UNRECOGNIZED DRUG - OTHER] IVP PRN (10:56)
[2018-12-08] MEDS: HEPARIN (PORCINE) 1000 UNIT/ML (DIALYSIS) IVP PRN ×2 (06:21)
[2018-12-08] MEDS: PARICALCITOL 2 MCG/ML VIAL IVP PRN (07:10)
[2018-12-08] MEDS: [UNRECOGNIZED DRUG - OTHER] IVP PRN (10:53)
[2018-12-10] MEDS: HEPARIN (PORCINE) 1000 UNIT/ML (DIALYSIS) IVP PRN ×2 (06:30)
[2018-12-10] MEDS: PARICALCITOL 2 MCG/ML VIAL IVP PRN (07:10)
[2018-12-10] MEDS: [UNRECOGNIZED DRUG - OTHER] IVP PRN (11:04)
[2018-12-12] MEDS: HEPARIN (PORCINE) 1000 UNIT/ML (DIALYSIS) IVP PRN ×2 (06:22)
[2018-12-12] MEDS: DARBEPOETIN ESRD 25 MCG/ML IVP PRN (06:55)
[2018-12-12] MEDS: PARICALCITOL 2 MCG/ML VIAL IVP PRN (06:55)
[2018-12-12] MEDS: [UNRECOGNIZED DRUG - OTHER] IVP PRN (10:52)
[2018-12-15] MEDS: HEPARIN (PORCINE) 1000 UNIT/ML (DIALYSIS) IVP PRN ×2 (06:20)
[2018-12-15] MEDS: PARICALCITOL 2 MCG/ML VIAL IVP PRN (06:42)
[2018-12-15] MEDS: [UNRECOGNIZED DRUG - OTHER] IVP PRN (10:51)
[2018-12-17] MEDS: HEPARIN (PORCINE) 1000 UNIT/ML (DIALYSIS) IVP PRN ×2 (06:28→06:29)
[2018-12-17] MEDS: PARICALCITOL 2 MCG/ML VIAL IVP PRN (07:18)
[2018-12-17] MEDS: [UNRECOGNIZED DRUG - OTHER] IVP PRN (11:38)
[2018-12-19] MEDS: HEPARIN (PORCINE) 1000 UNIT/ML (DIALYSIS) IVP PRN ×2 (12:23)
[2018-12-19] MEDS: PARICALCITOL 2 MCG/ML VIAL IVP PRN (13:02)
[2018-12-19] MEDS: DARBEPOETIN ESRD 40MCG/ML IVP PRN (13:03)
[2018-12-19] MEDS: [UNRECOGNIZED DRUG - OTHER] IVP PRN (17:08)
[2018-12-22] MEDS: HEPARIN (PORCINE) 1000 UNIT/ML (DIALYSIS) IVP PRN ×2 (06:14)
[2018-12-22] MEDS: PARICALCITOL 2 MCG/ML VIAL IVP PRN (06:53)
[2018-12-22] MEDS: [UNRECOGNIZED DRUG - OTHER] IVP PRN (10:44)
[2018-12-24] MEDS: HEPARIN (PORCINE) 1000 UNIT/ML (DIALYSIS) IVP PRN ×2 (06:27)
[2018-12-24] MEDS: PARICALCITOL 2 MCG/ML VIAL IVP PRN (07:41)
[2018-12-24] MEDS: [UNRECOGNIZED DRUG - OTHER] IVP PRN (11:00)
[2018-12-26] MEDS: HEPARIN (PORCINE) 1000 UNIT/ML (DIALYSIS) IVP PRN ×2 (06:23→06:24)
[2018-12-26] MEDS: DARBEPOETIN ESRD 40MCG/ML IVP PRN (08:00)
[2018-12-26] MEDS: PARICALCITOL 2 MCG/ML VIAL IVP PRN (08:00)
[2018-12-26] MEDS: [UNRECOGNIZED DRUG - OTHER] IVP PRN (10:55)
[2018-12-29] MEDS: HEPARIN (PORCINE) 1000 UNIT/ML (DIALYSIS) IVP PRN ×2 (06:25)
[2018-12-29] MEDS: PARICALCITOL 2 MCG/ML VIAL IVP PRN (06:44)
[2018-12-29] MEDS: [UNRECOGNIZED DRUG - OTHER] IVP PRN (10:47)
[2018-12-31] MEDS: HEPARIN (PORCINE) 1000 UNIT/ML (DIALYSIS) IVP PRN ×2 (06:25)
[2018-12-31 07:40] LABS: PLATELET COUNT, AUTOMATED 223 K/uL (150-450)
[2018-12-31] MEDS: PARICALCITOL 2 MCG/ML VIAL IVP PRN (08:02)
[2018-12-31] MEDS: [UNRECOGNIZED DRUG - OTHER] IVP PRN (11:08)
[2019-01-02] MEDS: HEPARIN (PORCINE) 1000 UNIT/ML (DIALYSIS) IVP PRN ×2 (06:32)
[2019-01-02] MEDS: PARICALCITOL 2 MCG/ML VIAL IVP PRN (07:57)
[2019-01-02] MEDS: DARBEPOETIN ESRD 40MCG/ML IVP PRN (07:57)
[2019-01-02] MEDS: [UNRECOGNIZED DRUG - OTHER] IVP PRN (11:10)
[2019-01-05] MEDS: HEPARIN (PORCINE) 1000 UNIT/ML (DIALYSIS) IVP PRN ×2 (06:21)
[2019-01-05] MEDS: PARICALCITOL 2 MCG/ML VIAL IVP PRN (06:59)
[2019-01-05] MEDS: [UNRECOGNIZED DRUG - OTHER] IVP PRN (10:42)
[2019-01-07] MEDS: HEPARIN (PORCINE) 1000 UNIT/ML (DIALYSIS) IVP PRN ×2 (06:38)
[2019-01-07] MEDS: PARICALCITOL 2 MCG/ML VIAL IVP PRN (07:46)
[2019-01-07] MEDS: [UNRECOGNIZED DRUG - OTHER] IVP PRN (11:08)
[2019-01-08] MEDS ORDERED: CLIN300C99 PO (14:58)
[2019-01-09] MEDS: HEPARIN (PORCINE) 1000 UNIT/ML (DIALYSIS) IVP PRN ×2 (06:31)
[2019-01-09] MEDS: DARBEPOETIN ESRD 40MCG/ML IVP PRN (07:04)
[2019-01-09] MEDS: PARICALCITOL 2 MCG/ML VIAL IVP PRN (07:04)
[2019-01-09] MEDS: [UNRECOGNIZED DRUG - OTHER] IVP PRN (10:53)
[2019-01-12] MEDS: HEPARIN (PORCINE) 1000 UNIT/ML (DIALYSIS) IVP PRN ×2 (08:19→08:20)
[2019-01-12] MEDS: PARICALCITOL 2 MCG/ML VIAL IVP PRN (09:18)
[2019-01-12] MEDS: [UNRECOGNIZED DRUG - OTHER] IVP PRN (12:51)
[2019-01-14] MEDS: HEPARIN (PORCINE) 1000 UNIT/ML (DIALYSIS) IVP PRN ×2 (06:31→06:32)
[2019-01-14] MEDS: PARICALCITOL 2 MCG/ML VIAL IVP PRN (07:08)
[2019-01-14 07:30] LABS: PLATELET COUNT, AUTOMATED 209 K/uL (150-450)
[2019-01-14] MEDS: [UNRECOGNIZED DRUG - OTHER] IVP PRN (11:18)
[2019-01-16] MEDS: HEPARIN (PORCINE) 1000 UNIT/ML (DIALYSIS) IVP PRN ×2 (10:12→10:13)
[2019-01-16] MEDS: DARBEPOETIN ESRD 40MCG/ML IVP PRN (10:42)
[2019-01-16] MEDS: PARICALCITOL 2 MCG/ML VIAL IVP PRN (10:42)
[2019-01-16] MEDS: [UNRECOGNIZED DRUG - OTHER] IVP PRN (15:00)
[2019-01-19] MEDS: HEPARIN (PORCINE) 1000 UNIT/ML (DIALYSIS) IVP PRN ×2 (06:24)
[2019-01-19] MEDS: PARICALCITOL 2 MCG/ML VIAL IVP PRN (07:05)
[2019-01-19] MEDS: [UNRECOGNIZED DRUG - OTHER] IVP PRN (10:55)
[2019-01-21] MEDS: HEPARIN (PORCINE) 1000 UNIT/ML (DIALYSIS) IVP PRN ×2 (06:26)
[2019-01-21] MEDS: PARICALCITOL 2 MCG/ML VIAL IVP PRN (07:24)
[2019-01-21] MEDS: [UNRECOGNIZED DRUG - OTHER] IVP PRN (11:02)
[2019-01-23] MEDS: HEPARIN (PORCINE) 1000 UNIT/ML (DIALYSIS) IVP PRN ×2 (06:15)
[2019-01-23] MEDS: DARBEPOETIN ESRD 40MCG/ML IVP PRN (07:16)
[2019-01-23] MEDS: PARICALCITOL 2 MCG/ML VIAL IVP PRN (07:16)
[2019-01-23] MEDS: [UNRECOGNIZED DRUG - OTHER] IVP PRN (10:58)
[2019-01-26] MEDS: HEPARIN (PORCINE) 1000 UNIT/ML (DIALYSIS) IVP PRN ×2 (06:18)
[2019-01-26] MEDS: PARICALCITOL 2 MCG/ML VIAL IVP PRN (06:50)
[2019-01-26] MEDS: [UNRECOGNIZED DRUG - OTHER] IVP PRN (10:48)
[2019-01-28] MEDS: HEPARIN (PORCINE) 1000 UNIT/ML (DIALYSIS) IVP PRN ×2 (06:22)
[2019-01-28] MEDS: PARICALCITOL 2 MCG/ML VIAL IVP PRN (07:38)
[2019-01-28] MEDS: [UNRECOGNIZED DRUG - OTHER] IVP PRN (10:55)
[2019-01-30] MEDS: HEPARIN (PORCINE) 1000 UNIT/ML (DIALYSIS) IVP PRN ×2 (06:12)
[2019-01-30] MEDS: PARICALCITOL 2 MCG/ML VIAL IVP PRN (07:11)
[2019-01-30] MEDS: DARBEPOETIN ESRD 25 MCG/ML IVP PRN (07:11)
[2019-01-30] MEDS: [UNRECOGNIZED DRUG - OTHER] IVP PRN (10:44)
[2019-02-02] MEDS: HEPARIN (PORCINE) 1000 UNIT/ML (DIALYSIS) IVP PRN ×2 (06:40)
[2019-02-02] MEDS: PARICALCITOL 2 MCG/ML VIAL IVP PRN (08:10)
[2019-02-02] MEDS: [UNRECOGNIZED DRUG - OTHER] IVP PRN (11:10)
[2019-02-04] MEDS: HEPARIN (PORCINE) 1000 UNIT/ML (DIALYSIS) IVP PRN ×2 (06:20)
[2019-02-04] MEDS: PARICALCITOL 2 MCG/ML VIAL IVP PRN (07:11)
[2019-02-04] MEDS: [UNRECOGNIZED DRUG - OTHER] IVP PRN (10:49)
[2019-02-06] MEDS: HEPARIN (PORCINE) 1000 UNIT/ML (DIALYSIS) IVP PRN ×2 (06:22→06:23)
[2019-02-06] MEDS: DARBEPOETIN ESRD 25 MCG/ML IVP PRN (08:05)
[2019-02-06] MEDS: PARICALCITOL 2 MCG/ML VIAL IVP PRN (08:05)
[2019-02-06] MEDS: [UNRECOGNIZED DRUG - OTHER] IVP PRN (10:53)
[2019-02-09] MEDS: HEPARIN (PORCINE) 1000 UNIT/ML (DIALYSIS) IVP PRN ×2 (06:23→06:25)
[2019-02-09] MEDS: PARICALCITOL 2 MCG/ML VIAL IVP PRN (07:33)
[2019-02-09] MEDS: [UNRECOGNIZED DRUG - OTHER] IVP PRN (10:49)
[2019-02-11] MEDS: HEPARIN (PORCINE) 1000 UNIT/ML (DIALYSIS) IVP PRN ×2 (06:31)
[2019-02-11] MEDS: PARICALCITOL 2 MCG/ML VIAL IVP PRN (08:44)
[2019-02-11] MEDS: [UNRECOGNIZED DRUG - OTHER] IVP PRN (11:17)
[2019-02-12] MEDS ORDERED: CLIN300C99 PO (12:48)
[2019-02-13] MEDS: HEPARIN (PORCINE) 1000 UNIT/ML (DIALYSIS) IVP PRN ×2 (06:22→06:23)
[2019-02-13] MEDS: DARBEPOETIN ESRD 25 MCG/ML IVP PRN (07:02)
[2019-02-13] MEDS: PARICALCITOL 2 MCG/ML VIAL IVP PRN (07:03)
[2019-02-13] MEDS: [UNRECOGNIZED DRUG - OTHER] IVP PRN (10:57)
[2019-02-16] MEDS: HEPARIN (PORCINE) 1000 UNIT/ML (DIALYSIS) IVP PRN ×2 (06:23)
[2019-02-16] MEDS: PARICALCITOL 2 MCG/ML VIAL IVP PRN (06:52)
[2019-02-16] MEDS: [UNRECOGNIZED DRUG - OTHER] IVP PRN (10:53)
[2019-02-18] MEDS: HEPARIN (PORCINE) 1000 UNIT/ML (DIALYSIS) IVP PRN ×2 (06:21→06:22)
[2019-02-18] MEDS: PARICALCITOL 2 MCG/ML VIAL IVP PRN (07:00)
[2019-02-18] MEDS: [UNRECOGNIZED DRUG - OTHER] IVP PRN (10:58)
[2019-02-20] MEDS: HEPARIN (PORCINE) 1000 UNIT/ML (DIALYSIS) IVP PRN ×2 (06:44)
[2019-02-20] MEDS: DARBEPOETIN ESRD 25 MCG/ML IVP PRN ×2 (07:30→11:17)
[2019-02-20] MEDS: PARICALCITOL 2 MCG/ML VIAL IVP PRN (07:30)
[2019-02-20] MEDS: [UNRECOGNIZED DRUG - OTHER] IVP PRN (11:17)
[2019-02-23] MEDS: HEPARIN (PORCINE) 1000 UNIT/ML (DIALYSIS) IVP PRN ×2 (06:24)
[2019-02-23] MEDS: PARICALCITOL 2 MCG/ML VIAL IVP PRN (07:35)
[2019-02-23] MEDS: [UNRECOGNIZED DRUG - OTHER] IVP PRN (11:04)
[2019-02-25] MEDS: HEPARIN (PORCINE) 1000 UNIT/ML (DIALYSIS) IVP PRN ×2 (06:21)
[2019-02-25] MEDS: PARICALCITOL 2 MCG/ML VIAL IVP PRN (07:22)
[2019-02-25 07:46] LABS: PLATELET COUNT, AUTOMATED 185 K/uL (150-450)
[2019-02-25] MEDS: [UNRECOGNIZED DRUG - OTHER] IVP PRN (10:53)
[2019-02-27] MEDS: HEPARIN (PORCINE) 1000 UNIT/ML (DIALYSIS) IVP PRN ×2 (06:20→06:21)
[2019-02-27] MEDS: PARICALCITOL 2 MCG/ML VIAL IVP PRN (07:12)
[2019-02-27] MEDS: [UNRECOGNIZED DRUG - OTHER] IVP PRN (10:50)
[2019-03-02] MEDS: HEPARIN (PORCINE) 1000 UNIT/ML (DIALYSIS) IVP PRN ×2 (06:22)
[2019-03-02] MEDS: PARICALCITOL 2 MCG/ML VIAL IVP PRN (06:56)
[2019-03-02] MEDS: [UNRECOGNIZED DRUG - OTHER] IVP PRN (10:52)
[2019-03-04] MEDS: HEPARIN (PORCINE) 1000 UNIT/ML (DIALYSIS) IVP PRN ×2 (06:20→06:21)
[2019-03-04] MEDS: PARICALCITOL 2 MCG/ML VIAL IVP PRN (07:24)
[2019-03-04] MEDS: [UNRECOGNIZED DRUG - OTHER] IVP PRN (10:48)
[2019-03-06] MEDS: HEPARIN (PORCINE) 1000 UNIT/ML (DIALYSIS) IVP PRN ×2 (06:19)
[2019-03-06] MEDS: PARICALCITOL 2 MCG/ML VIAL IVP PRN (07:17)
[2019-03-06] MEDS: DARBEPOETIN ESRD 40MCG/ML IVP PRN (07:17)
[2019-03-06] MEDS: [UNRECOGNIZED DRUG - OTHER] IVP PRN (10:48)
[2019-03-09] MEDS: HEPARIN (PORCINE) 1000 UNIT/ML (DIALYSIS) IVP PRN ×2 (06:20)
[2019-03-09] MEDS: PARICALCITOL 2 MCG/ML VIAL IVP PRN (06:55)
[2019-03-09] MEDS ORDERED: ASPI-1471 PO (08:30)
[2019-03-09] MEDS: [UNRECOGNIZED DRUG - OTHER] IVP PRN (10:53)
[2019-03-11] MEDS: HEPARIN (PORCINE) 1000 UNIT/ML (DIALYSIS) IVP PRN ×2 (06:19→06:20)
[2019-03-11] MEDS: PARICALCITOL 2 MCG/ML VIAL IVP PRN (07:21)
[2019-03-11] MEDS: [UNRECOGNIZED DRUG - OTHER] IVP PRN (10:51)
[2019-03-13] MEDS: HEPARIN (PORCINE) 1000 UNIT/ML (DIALYSIS) IVP PRN ×2 (06:17→06:18)
[2019-03-13] MEDS: PARICALCITOL 2 MCG/ML VIAL IVP PRN (06:53)
[2019-03-13] MEDS: [UNRECOGNIZED DRUG - OTHER] IVP PRN (10:48)
[2019-03-16] MEDS: HEPARIN (PORCINE) 1000 UNIT/ML (DIALYSIS) IVP PRN ×2 (06:21)
[2019-03-16] MEDS: PARICALCITOL 2 MCG/ML VIAL IVP PRN (06:45)
[2019-03-16] MEDS: [UNRECOGNIZED DRUG - OTHER] IVP PRN (10:49)
[2019-03-18] MEDS: HEPARIN (PORCINE) 1000 UNIT/ML (DIALYSIS) IVP PRN ×2 (06:25)
[2019-03-18] MEDS: PARICALCITOL 2 MCG/ML VIAL IVP PRN (07:12)
[2019-03-18] MEDS: [UNRECOGNIZED DRUG - OTHER] IVP PRN (10:52)
[2019-03-20] MEDS: HEPARIN (PORCINE) 1000 UNIT/ML (DIALYSIS) IVP PRN ×2 (06:20)
[2019-03-20] MEDS: DARBEPOETIN ESRD 40MCG/ML IVP PRN (07:16)
[2019-03-20] MEDS: PARICALCITOL 2 MCG/ML VIAL IVP PRN (07:16)
[2019-03-20] MEDS: [UNRECOGNIZED DRUG - OTHER] IVP PRN (10:44)
[2019-03-23] MEDS: HEPARIN (PORCINE) 1000 UNIT/ML (DIALYSIS) IVP PRN ×2 (11:42→11:43)
[2019-03-23] MEDS: PARICALCITOL 2 MCG/ML VIAL IVP PRN (12:55)
[2019-03-23] MEDS: [UNRECOGNIZED DRUG - OTHER] IVP PRN (16:04)
[2019-03-24] MEDS ORDERED: ATOR20TA65 PO (15:19)
[2019-03-25] MEDS: HEPARIN (PORCINE) 1000 UNIT/ML (DIALYSIS) IVP PRN ×2 (06:16)
[2019-03-25] MEDS: PARICALCITOL 2 MCG/ML VIAL IVP PRN (06:38)
[2019-03-25 07:29] LABS: PLATELET COUNT, AUTOMATED 224 K/uL (150-450)
[2019-03-25] MEDS: [UNRECOGNIZED DRUG - OTHER] IVP PRN (10:48)
[2019-03-27] MEDS: HEPARIN (PORCINE) 1000 UNIT/ML (DIALYSIS) IVP PRN ×2 (06:17)
[2019-03-27] MEDS: PARICALCITOL 2 MCG/ML VIAL IVP PRN (07:07)
[2019-03-27] MEDS: [UNRECOGNIZED DRUG - OTHER] IVP PRN (10:52)
[2019-03-30] MEDS: HEPARIN (PORCINE) 1000 UNIT/ML (DIALYSIS) IVP PRN ×2 (06:17)
[2019-03-30] MEDS: PARICALCITOL 2 MCG/ML VIAL IVP PRN (06:55)
[2019-03-30] MEDS: [UNRECOGNIZED DRUG - OTHER] IVP PRN (10:52)
[2019-04-01] MEDS: PARICALCITOL 2 MCG/ML VIAL IVP PRN (06:56)
[2019-04-01] MEDS: [UNRECOGNIZED DRUG - OTHER] IVP PRN (10:57)
[2019-04-01] MEDS ORDERED: LANT10002 PO (12:18)
[2019-04-03] MEDS: HEPARIN (PORCINE) 1000 UNIT/ML (DIALYSIS) IVP PRN ×2 (06:22)
[2019-04-03] MEDS: DARBEPOETIN ESRD 40MCG/ML IVP PRN (07:25)
[2019-04-03] MEDS: PARICALCITOL 2 MCG/ML VIAL IVP PRN (07:25)
[2019-04-03] MEDS: [UNRECOGNIZED DRUG - OTHER] IVP PRN (10:55)
[2019-04-06] MEDS: HEPARIN (PORCINE) 1000 UNIT/ML (DIALYSIS) IVP PRN ×2 (06:21)
[2019-04-06] MEDS: PARICALCITOL 2 MCG/ML VIAL IVP PRN (07:02)
[2019-04-06] MEDS: [UNRECOGNIZED DRUG - OTHER] IVP PRN (11:04)
[2019-04-08] MEDS: HEPARIN (PORCINE) 1000 UNIT/ML (DIALYSIS) IVP PRN ×2 (06:26)
[2019-04-08] MEDS: PARICALCITOL 2 MCG/ML VIAL IVP PRN (07:08)
[2019-04-08] MEDS: [UNRECOGNIZED DRUG - OTHER] IVP PRN (11:03)
[2019-04-10] MEDS: HEPARIN (PORCINE) 1000 UNIT/ML (DIALYSIS) IVP PRN ×2 (06:29)
[2019-04-10] MEDS: PARICALCITOL 2 MCG/ML VIAL IVP PRN (07:15)
[2019-04-10] MEDS: [UNRECOGNIZED DRUG - OTHER] IVP PRN (10:47)
[2019-04-13] MEDS: HEPARIN (PORCINE) 1000 UNIT/ML (DIALYSIS) IVP PRN ×2 (06:34→06:35)
[2019-04-13] MEDS: PARICALCITOL 2 MCG/ML VIAL IVP PRN (07:12)
[2019-04-13] MEDS: [UNRECOGNIZED DRUG - OTHER] IVP PRN (11:10)
[2019-04-15] MEDS: HEPARIN (PORCINE) 1000 UNIT/ML (DIALYSIS) IVP PRN ×2 (06:27)
[2019-04-15 07:24] LABS: PLATELET COUNT, AUTOMATED 192 K/uL (150-450)
[2019-04-15] MEDS: PARICALCITOL 2 MCG/ML VIAL IVP PRN (07:42)
[2019-04-15] MEDS: [UNRECOGNIZED DRUG - OTHER] IVP PRN (10:53)
[2019-04-17] MEDS: HEPARIN (PORCINE) 1000 UNIT/ML (DIALYSIS) IVP PRN ×2 (06:33→06:34)
[2019-04-17] MEDS: PARICALCITOL 2 MCG/ML VIAL IVP PRN (06:49)
[2019-04-17] MEDS: DARBEPOETIN ESRD 25 MCG/ML IVP PRN (06:49)
[2019-04-17] MEDS: [UNRECOGNIZED DRUG - OTHER] IVP PRN (11:06)
[2019-04-20] MEDS: HEPARIN (PORCINE) 1000 UNIT/ML (DIALYSIS) IVP PRN ×2 (06:19)
[2019-04-20] MEDS: PARICALCITOL 2 MCG/ML VIAL IVP PRN (06:50)
[2019-04-20] MEDS: [UNRECOGNIZED DRUG - OTHER] IVP PRN (10:51)
[2019-04-22] MEDS: HEPARIN (PORCINE) 1000 UNIT/ML (DIALYSIS) IVP PRN ×2 (06:21→06:22)
[2019-04-22] MEDS: PARICALCITOL 2 MCG/ML VIAL IVP PRN (06:45)
[2019-04-22] MEDS: [UNRECOGNIZED DRUG - OTHER] IVP PRN (11:00)
[2019-04-24] MEDS: HEPARIN (PORCINE) 1000 UNIT/ML (DIALYSIS) IVP PRN ×2 (06:39)
[2019-04-24] MEDS: DARBEPOETIN ESRD 25 MCG/ML IVP PRN (07:10)
[2019-04-24] MEDS: PARICALCITOL 2 MCG/ML VIAL IVP PRN (07:10)
[2019-04-24] MEDS: [UNRECOGNIZED DRUG - OTHER] IVP PRN (11:02)
[2019-04-27] MEDS: HEPARIN (PORCINE) 1000 UNIT/ML (DIALYSIS) IVP PRN ×2 (06:27→06:28)
[2019-04-27] MEDS: PARICALCITOL 2 MCG/ML VIAL IVP PRN (06:44)
[2019-04-27] MEDS: [UNRECOGNIZED DRUG - OTHER] IVP PRN (11:04)
[2019-04-29] MEDS: HEPARIN (PORCINE) 1000 UNIT/ML (DIALYSIS) IVP PRN ×2 (06:22→06:23)
[2019-04-29] MEDS: PARICALCITOL 2 MCG/ML VIAL IVP PRN (07:23)
[2019-04-29] MEDS: [UNRECOGNIZED DRUG - OTHER] IVP PRN (10:46)
[2019-05-01] MEDS: HEPARIN (PORCINE) 1000 UNIT/ML (DIALYSIS) IVP PRN ×2 (06:31)
[2019-05-01] MEDS: PARICALCITOL 2 MCG/ML VIAL IVP PRN (07:48)
[2019-05-01] MEDS: DARBEPOETIN ESRD 40MCG/ML IVP PRN (07:48)
[2019-05-01] MEDS: [UNRECOGNIZED DRUG - OTHER] IVP PRN (11:14)
[2019-05-04] MEDS: HEPARIN (PORCINE) 1000 UNIT/ML (DIALYSIS) IVP PRN ×2 (06:26)
[2019-05-04] MEDS: PARICALCITOL 2 MCG/ML VIAL IVP PRN (07:30)
[2019-05-04] MEDS: [UNRECOGNIZED DRUG - OTHER] IVP PRN (10:58)
[2019-05-06] MEDS: HEPARIN (PORCINE) 1000 UNIT/ML (DIALYSIS) IVP PRN ×2 (06:23→06:24)
[2019-05-06] MEDS: [UNRECOGNIZED DRUG - OTHER] IVP PRN (11:14)
[2019-05-08] MEDS: HEPARIN (PORCINE) 1000 UNIT/ML (DIALYSIS) IVP PRN ×2 (06:31)
[2019-05-08] MEDS: PARICALCITOL 2 MCG/ML VIAL IVP PRN (06:55)
[2019-05-08] MEDS: DARBEPOETIN ESRD 40MCG/ML IVP PRN (06:55)
[2019-05-08] MEDS: [UNRECOGNIZED DRUG - OTHER] IVP PRN (10:55)
[2019-05-11] MEDS: HEPARIN (PORCINE) 1000 UNIT/ML (DIALYSIS) IVP PRN ×2 (06:23)
[2019-05-11] MEDS: PARICALCITOL 2 MCG/ML VIAL IVP PRN (06:46)
[2019-05-11] MEDS: [UNRECOGNIZED DRUG - OTHER] IVP PRN (10:48)
[2019-05-13] MEDS: HEPARIN (PORCINE) 1000 UNIT/ML (DIALYSIS) IVP PRN ×2 (06:25→06:26)
[2019-05-13] MEDS: PARICALCITOL 2 MCG/ML VIAL IVP PRN (06:52)
[2019-05-13] MEDS: [UNRECOGNIZED DRUG - OTHER] IVP PRN (10:54)
[2019-05-15] MEDS: HEPARIN (PORCINE) 1000 UNIT/ML (DIALYSIS) IVP PRN ×2 (06:26)
[2019-05-15] MEDS: PARICALCITOL 2 MCG/ML VIAL IVP PRN (07:10)
[2019-05-15] MEDS: DARBEPOETIN ESRD 40MCG/ML IVP PRN (07:10)
[2019-05-15] MEDS: [UNRECOGNIZED DRUG - OTHER] IVP PRN (11:09)
[2019-05-18] MEDS: HEPARIN (PORCINE) 1000 UNIT/ML (DIALYSIS) IVP PRN ×2 (06:28→06:29)
[2019-05-18] MEDS: PARICALCITOL 2 MCG/ML VIAL IVP PRN (07:13)
[2019-05-18] MEDS: [UNRECOGNIZED DRUG - OTHER] IVP PRN (10:51)
[2019-05-20] MEDS: HEPARIN (PORCINE) 1000 UNIT/ML (DIALYSIS) IVP PRN ×2 (06:30→06:31)
[2019-05-20] MEDS: PARICALCITOL 2 MCG/ML VIAL IVP PRN (08:10)
[2019-05-20] MEDS: [UNRECOGNIZED DRUG - OTHER] IVP PRN (11:06)
[2019-05-22] MEDS: HEPARIN (PORCINE) 1000 UNIT/ML (DIALYSIS) IVP PRN ×2 (06:29)
[2019-05-22] MEDS: PARICALCITOL 2 MCG/ML VIAL IVP PRN (07:09)
[2019-05-22] MEDS: DARBEPOETIN ESRD 40MCG/ML IVP PRN (07:09)
[2019-05-22] MEDS: [UNRECOGNIZED DRUG - OTHER] IVP PRN (11:03)
[2019-05-25] MEDS: HEPARIN (PORCINE) 1000 UNIT/ML (DIALYSIS) IVP PRN ×2 (06:27)
[2019-05-25] MEDS: PARICALCITOL 2 MCG/ML VIAL IVP PRN (07:07)
[2019-05-25] MEDS: [UNRECOGNIZED DRUG - OTHER] IVP PRN (11:08)
[2019-05-27] MEDS: HEPARIN (PORCINE) 1000 UNIT/ML (DIALYSIS) IVP PRN ×2 (06:36)
[2019-05-27] MEDS: PARICALCITOL 2 MCG/ML VIAL IVP PRN (07:07)
[2019-05-27] MEDS: [UNRECOGNIZED DRUG - OTHER] IVP PRN (10:58)
[2019-05-29] MEDS: HEPARIN (PORCINE) 1000 UNIT/ML (DIALYSIS) IVP PRN ×2 (06:18→06:19)
[2019-05-29] MEDS: DARBEPOETIN ESRD 40MCG/ML IVP PRN (07:10)
[2019-05-29] MEDS: PARICALCITOL 2 MCG/ML VIAL IVP PRN (07:10)
[2019-05-29] MEDS: [UNRECOGNIZED DRUG - OTHER] IVP PRN (11:03)
[2019-06-01] MEDS: HEPARIN (PORCINE) 1000 UNIT/ML (DIALYSIS) IVP PRN ×2 (06:23)
[2019-06-01] MEDS: PARICALCITOL 2 MCG/ML VIAL IVP PRN (06:51)
[2019-06-01] MEDS: [UNRECOGNIZED DRUG - OTHER] IVP PRN (11:04)
[2019-06-03] MEDS: HEPARIN (PORCINE) 1000 UNIT/ML (DIALYSIS) IVP PRN ×2 (11:48)
[2019-06-03] MEDS: PARICALCITOL 2 MCG/ML VIAL IVP PRN (12:29)
[2019-06-03 13:17] LABS: PLATELET COUNT, AUTOMATED 262 K/uL (150-450)
[2019-06-03] MEDS: [UNRECOGNIZED DRUG - OTHER] IVP PRN (16:48)
[2019-06-05] MEDS: HEPARIN (PORCINE) 1000 UNIT/ML (DIALYSIS) IVP PRN ×2 (06:30)
[2019-06-05] MEDS: DARBEPOETIN ESRD 40MCG/ML IVP PRN (06:56)
[2019-06-05] MEDS: PARICALCITOL 2 MCG/ML VIAL IVP PRN (06:57)
[2019-06-05] MEDS: [UNRECOGNIZED DRUG - OTHER] IVP PRN (10:57)
[2019-06-08] MEDS: HEPARIN (PORCINE) 1000 UNIT/ML (DIALYSIS) IVP PRN ×2 (06:18→06:19)
[2019-06-08] MEDS: PARICALCITOL 2 MCG/ML VIAL IVP PRN (06:52)
[2019-06-08] MEDS: [UNRECOGNIZED DRUG - OTHER] IVP PRN (10:47)
[2019-06-10] MEDS: HEPARIN (PORCINE) 1000 UNIT/ML (DIALYSIS) IVP PRN ×2 (06:31→06:32)
[2019-06-10] MEDS: [UNRECOGNIZED DRUG - OTHER] IVP PRN (11:14)
[2019-06-10] MEDS ORDERED: CALC668T PO (14:01)
[2019-06-12] MEDS: HEPARIN (PORCINE) 1000 UNIT/ML (DIALYSIS) IVP PRN ×2 (06:34)
[2019-06-12] MEDS: PARICALCITOL 2 MCG/ML VIAL IVP PRN (07:00)
[2019-06-12] MEDS: DARBEPOETIN ESRD 40MCG/ML IVP PRN (07:01)
[2019-06-12] MEDS: [UNRECOGNIZED DRUG - OTHER] IVP PRN (11:37)
[2019-06-15] MEDS: HEPARIN (PORCINE) 1000 UNIT/ML (DIALYSIS) IVP PRN ×2 (06:36)
[2019-06-15] MEDS: PARICALCITOL 2 MCG/ML VIAL IVP PRN (07:25)
[2019-06-15] MEDS: [UNRECOGNIZED DRUG - OTHER] IVP PRN (11:11)
[2019-06-17] MEDS: HEPARIN (PORCINE) 1000 UNIT/ML (DIALYSIS) IVP PRN ×2 (06:17)
[2019-06-17] MEDS: PARICALCITOL 2 MCG/ML VIAL IVP PRN (08:08)
[2019-06-17] MEDS: [UNRECOGNIZED DRUG - OTHER] IVP PRN (10:49)
[2019-06-19] MEDS: HEPARIN (PORCINE) 1000 UNIT/ML (DIALYSIS) IVP PRN ×2 (06:56)
[2019-06-19] MEDS: DARBEPOETIN ESRD 40MCG/ML IVP PRN (07:26)
[2019-06-19] MEDS: PARICALCITOL 2 MCG/ML VIAL IVP PRN (07:27)
[2019-06-19] MEDS: [UNRECOGNIZED DRUG - OTHER] IVP PRN (11:33)
[2019-06-22] MEDS: HEPARIN (PORCINE) 1000 UNIT/ML (DIALYSIS) IVP PRN ×2 (06:32)
[2019-06-22] MEDS: PARICALCITOL 2 MCG/ML VIAL IVP PRN (07:08)
[2019-06-22] MEDS: [UNRECOGNIZED DRUG - OTHER] IVP PRN (10:56)
[2019-06-24] MEDS: HEPARIN (PORCINE) 1000 UNIT/ML (DIALYSIS) IVP PRN ×2 (06:46→06:48)
[2019-06-24] MEDS: PARICALCITOL 2 MCG/ML VIAL IVP PRN (07:26)
[2019-06-24 07:34] LABS: PLATELET COUNT, AUTOMATED 209 K/uL (150-450)
[2019-06-24] MEDS: [UNRECOGNIZED DRUG - OTHER] IVP PRN (11:17)
[2019-06-26] MEDS: HEPARIN (PORCINE) 1000 UNIT/ML (DIALYSIS) IVP PRN ×2 (06:23)
[2019-06-26] MEDS: DARBEPOETIN ESRD 40MCG/ML IVP PRN (07:27)
[2019-06-26] MEDS: PARICALCITOL 2 MCG/ML VIAL IVP PRN (07:27)
[2019-06-26] MEDS: [UNRECOGNIZED DRUG - OTHER] IVP PRN (10:50)
[2019-06-29] MEDS: HEPARIN (PORCINE) 1000 UNIT/ML (DIALYSIS) IVP PRN ×2 (06:22→06:23)
[2019-06-29] MEDS: PARICALCITOL 2 MCG/ML VIAL IVP PRN (06:52)
[2019-06-29] MEDS: [UNRECOGNIZED DRUG - OTHER] IVP PRN (11:18)
[2019-06-30] MEDS ORDERED: GENT40VI IJ (11:47)
[2019-07-01] MEDS: HEPARIN (PORCINE) 1000 UNIT/ML (DIALYSIS) IVP PRN ×2 (06:23)
[2019-07-01] MEDS: PARICALCITOL 2 MCG/ML VIAL IVP PRN (07:12)
[2019-07-01] MEDS: [UNRECOGNIZED DRUG - OTHER] IVP PRN (10:54)
[2019-07-03] MEDS: HEPARIN (PORCINE) 1000 UNIT/ML (DIALYSIS) IVP PRN ×2 (06:27)
[2019-07-03] MEDS: PARICALCITOL 2 MCG/ML VIAL IVP PRN (07:13)
[2019-07-03] MEDS: DARBEPOETIN ESRD 40MCG/ML IVP PRN (07:13)
[2019-07-03] MEDS: [UNRECOGNIZED DRUG - OTHER] IVP PRN (11:00)
== END 2019-07-11 ==
LOC: DIAL 00:11
PROVIDERS: ATTEND Internal Medicine Nephrology
DX: I12.0 Hypertensive chronic kidney disease with stage 5 chronic kidney disease or end stage renal disease (principal); N18.6 End stage renal disease; E11.22 Type 2 diabetes mellitus with diabetic chronic kidney disease; I50.22 Chronic systolic (congestive) heart failure; N25.81 Secondary hyperparathyroidism of renal origin; Z90.89 Acquired absence of other organs; Z95.2 Presence of prosthetic heart valve; Z85.528 Personal history of other malignant neoplasm of kidney; Z90.5 Acquired absence of kidney; D63.1 Anemia in chronic kidney disease; Z99.2 Dependence on renal dialysis
CPT/HCPCS: 82040; 82108; 82247; 82310; 82374; 82465; 82565; 82728; 82947; 83036; 83540; 83550; 83970; 84075; 84100; 84132; 84295; 84460; 84478; 84520; 85018; 85025; 86580; 86706; 87340; 90999; A4657; G0472; J0606; J0882; J2501; 86803

== ENCOUNTER 2018-11-14 10:12 | Emergency (ER) | payer MEDICARE, BC ==
[~2018-11-14 10:12] MED LIST changes: -DIALYSIS ACETAMINOPHEN 325 MG PO PRN; -LOPERAMIDE HCL 2 MG CAP PO PRN; -PROMETHAZINE HCL 25 MG TAB PO PRN; -diphenhydr DIALYSIS 50 MG/ML IVP PRN
--- NOTE | 2018-11-14 10:24 | ER Report ---
History and Physical Time Seen By MD: 10:00 HPI/ROS CHIEF COMPLAINT: Syncope, chest pain HISTORY OF PRESENT ILLNESS: Pt was undergoing his standard dialysis treatment when he became lightheaded, pre-syncopal and reportedly hypotensive during di alysis. He states this happens frequently but today had instantaneous, brief chest discomfort that pt states lasted for 'just a couple seconds'.For this reason, dialysis team transports him to ED. Pt denies complete syncope stating he was always aware of surroundings, and denies return of cp.At time of presentation to ED he states he 'feels fine'. Pt denies assoc sob, n/v/ap. He states that he went to bed and woke up feeling well. He denies recent fever, chills, change in medication or diet. REVIEW OF SYSTEMS: Constitutional: No fever, no chills. Eyes: No discharge. ENT: No sore throat. Cardiovascular: as above Respiratory: No cough, no shortness of breath. Gastrointestinal: No abdominal pain, no vomiting. Genitourinary: no pain Musculoskeletal: No back pain. Skin: No rashes. Neurological: No headache. Remainder of the 14 system rev: Yes Allergies: Coded Allergies: ESTHER Inhibitors (Verified Allergy, Unknown, 11/14/18) Gadolinium-Containing Contrast Medi (Verified Allergy, Unknown, 11/14/18) Dialysis Patient Penicillins (Verified Adverse Reaction, Severe, SWELLING, 11/14/18) Home Meds Reported Medications Sevelamer Carbonate (RENVELA) 800 Mg Tablet, 3200 MG PO TIDHS for 30 Days Take 4 tabs with meals 05/08/17 Atorvastatin Calcium (ATORVASTATIN CALCIUM) 20 Mg Tablet, 20 MG PO QDAY, TAB 09/05/15 Hx Smoking: No Smoking Status: Never Smoker Exposure to Second Hand Smoke?: No Hx Alcohol Use: No Constitutional Vital Sign - Last 24 Hours 11/14/18 11/14/18 11/14/18 11/14/18 10:12 10:19 10:20 10:30 Temp 96.9 Pulse 85 91 Resp 14 12 B/P (MAP) 104/64 94/58 (70) 98/62 (74) Pulse Ox 95 O2 Delivery Room Air 11/14/18 11/14/18 11/14/18 10:42 10:45 11:00 Pulse 86 Resp 13 B/P (MAP) 113/59 (77) 110/84 (93) Physical Exam General Appearance: The patient is alert, has no immediate need for airway protection and no signs of toxicity. Eyes: Pupils equal and round no pallor or injection. ENT, Mouth: Mucous membranes are moist. Respiratory: There are no retractions, lungs are clear to auscultation. Cardiovascular: Regular rate and rhythm. Pt has palpable thrill in L AV fistula with access intact Gastrointestinal: Abdomen is soft and non tender, no masses. Neurological: alert, moves all ext, no focal deficit Skin: Warm and dry, no rashes. Musculoskeletal: Extremities are nontender, nonswollen and have full range of motion. DIFFERENTIAL DIAGNOSIS: After history and physical exam differential diagnosis was considered for chest pain including but not limited to myocardial ischemia, pericarditis pulmonary embolus, chest wall pain, pleural inflammation and pulmonary infectious causes.syncope including but not limited to vasovagal syncope, arrhythmia, dehydration, and blood loss. Medical Decision Making Data Points Result Diagram: 11/14/18 1014 11/14/18 1014 Laboratory Hematology Test 11/14/18 00:00 11/14/18 10:14 Magnesium Level 1.9 mg/dl (1.7-2.2) Red Blood Count 3.18 M/uL (4.00-5.60) Mean Corpuscular Volume 93.1 fL (80.0-96.0) Mean Corpuscular Hemoglobin 31.4 pg (26.0-33.0) Mean Corpuscular Hemoglobin Concent 33.7 g/dL (32.0-36.0) Red Cell Distribution Width 15.5 % (11.5-14.5) Mean Platelet Volume 8.3 fL (7.2-11.1) Neutrophils (%) (Auto) 38.1 % (39.4-72.5) Lymphocytes (%) (Auto) 41.0 % (17.6-49.6) Monocytes (%) (Auto) 13.4 % (4.1-12.4) Eosinophils (%) (Auto) 6.8 % (0.4-6.7) Basophils (%) (Auto) 0.7 % (0.3-1.4) Nucleated RBC Relative Count (auto) 0.1 /100WBC Neutrophils # (Auto) 2.0 K/uL (2.0-7.4) Lymphocytes # (Auto) 2.1 K/uL (1.3-3.6) Monocytes # (Auto) 0.7 K/uL (0.3-1.0) Eosinophils # (Auto) 0.4 K/uL (0.0-0.5) Basophils # (Auto) 0.0 K/uL (0.0-0.1) Nucleated RBC Absolute Count (auto) 0.00 K/uL Prothrombin Time 13.4 seconds (12.0-14.4) Prothromb Time International Ratio 1.02 Activated Partial Thromboplast Time 94 seconds (23-35) Sodium Level 140 mmol/L (137-145) Potassium Level 4.2 mmol/L (3.5-5.0) Chloride Level 99 mmol/L (98-107) Carbon Dioxide Level 27 mmol/L (22-30) Blood Urea Nitrogen 24 mg/dl (9-21) Creatinine 5.50 mg/dl (0.66-1.25) Glomerular Filtration Rate Calc 10.3 Random Glucose 103 mg/dl (75-110) Calcium Level 7.9 mg/dl (8.4-10.2) Total Bilirubin 0.9 mg/dl (0.2-1.3) Aspartate Amino Transf (AST/SGOT) 21 U/L (0-35) Alanine Aminotransferase (ALT/SGPT) 27 U/L (0-56) Alkaline Phosphatase 79 U/L (0-126) Troponin I 0.028 ng/ml Total Protein 7.2 g/dl (6.3-8.2) Albumin 3.7 g/dl (3.5-5.0) Chemistry Test 11/14/18 00:00 11/14/18 10:14 Magnesium Level 1.9 mg/dl (1.7-2.2) White Blood Count 5.2 k/uL (4.5-11.0) Red Blood Count 3.18 M/uL (4.00-5.60) Hemoglobin 10.0 g/dL (14.0-18.0) Hematocrit 29.6 % (42.0-52.0) Mean Corpuscular Volume 93.1 fL (80.0-96.0) Mean Corpuscular Hemoglobin 31.4 pg (26.0-33.0) Mean Corpuscular Hemoglobin Concent 33.7 g/dL (32.0-36.0) Red Cell Distribution Width 15.5 % (11.5-14.5) Platelet Count 148 K/uL (150-450) Mean Platelet Volume 8.3 fL (7.2-11.1) Neutrophils (%) (Auto) 38.1 % (39.4-72.5) Lymphocytes (%) (Auto) 41.0 % (17.6-49.6) Monocytes (%) (Auto) 13.4 % (4.1-12.4) Eosinophils (%) (Auto) 6.8 % (0.4-6.7) Basophils (%) (Auto) 0.7 % (0.3-1.4) Nucleated RBC Relative Count (auto) 0.1 /100WBC Neutrophils # (Auto) 2.0 K/uL (2.0-7.4) Lymphocytes # (Auto) 2.1 K/uL (1.3-3.6) Monocytes # (Auto) 0.7 K/uL (0.3-1.0) Eosinophils # (Auto) 0.4 K/uL (0.0-0.5) Basophils # (Auto) 0.0 K/uL (0.0-0.1) Nucleated RBC Absolute Count (auto) 0.00 K/uL Prothrombin Time 13.4 seconds (12.0-14.4) Prothromb Time International Ratio 1.02 Activated Partial Thromboplast Time 94 seconds (23-35) Glomerular Filtration Rate Calc 10.3 Calcium Level 7.9 mg/dl (8.4-10.2) Total Bilirubin 0.9 mg/dl (0.2-1.3) Aspartate Amino Transf (AST/SGOT) 21 U/L (0-35) Alanine Aminotransferase (ALT/SGPT) 27 U/L (0-56) Alkaline Phosphatase 79 U/L (0-126) Troponin I 0.028 ng/ml Total Protein 7.2 g/dl (6.3-8.2) Albumin 3.7 g/dl (3.5-5.0) Coagulation Test 11/14/18 10:14 Prothrombin Time 13.4 seconds Prothromb Time International Ratio 1.02 Activated Partial Thromboplast Time 94 seconds EKG/Imaging EKG Interpretation 12 lead EKG: Rhythm: Sinus rhythm; first deg AV block [place]: normal QRS: widened qrs ST segments: No sig st elevation or dep; Occ pvc's [ ] Monitor Interpretation: Normal Sinus Rhythm ED Course/Re-evaluation ED Course Pt presents after near syncopal episode during dialysis. Per pt and dialysis team this occurs frequently, yet he had fleeting, seconds-long chest pain so he was brought here. Considered acs, pe, ad, or other emergent etiology of chest pain, however given the approx 2-seconds long chest pain and no return, very unlikely serious illness. Pt denies return of symptoms, feels well on ED eval and wishes to be dc'd after monitoring. Decision to Disposition Date: Nov 14, 2018 Decision to Disposition Time: 11:26 Depart Departure Latest Vital Signs Vital Signs Date Time Temp Pulse Resp B/P (MAP) Pulse Ox O2 Delivery O2 Flow Rate FiO2 11/14/18 11:00 110/84 (93) 11/14/18 10:42 86 13 11/14/18 10:19 96.9 95 Room Air Impression: Primary Impression: Near syncope Condition: Improved Disposition: HOME OR SELF-CARE Referrals: ALVINO HARDWICK MD (PCP) 2 Days Patient Instructions: Chest Pain (ED), Near Syncope (ED) Additional Instructions: I am happy that you feel much better; however, as we discussed, please return immediately for worsening symptoms, chest pain or shortness of breath, or any concerns. SPEEDY REY MD Nov 14, 2018 10:24
[2018-11-14 10:26] LABS: PLATELET COUNT, AUTOMATED 148 K/uL (150-450)
[2018-11-14 10:36] LABS: INR 1.02
--- NOTE | 2018-11-14 10:36 | EKG ---
FACILITY: [facility] - [place] PATIENT NAME: SAIMA PIERCE : [id number] MR: [id number] V: [id number] EXAM DATE: ORDERING PHYSICIAN: SPEEDY REY TECHNOLOGIST: JENNIFER Test Reason : DIALYSIS CHEST PAIN Blood Pressure : / mmHG Vent. Rate : 089 BPM Atrial Rate : 089 BPM P-R Int : 236 ms QRS Dur : 106 ms QT Int : 406 ms P-R-T Axes : 053 -09 148 degrees QTc Int : 493 ms Sinus rhythm with 1st degree AV block with frequent premature ventricular complexes Septal infarct , age undetermined T wave abnormality, consider lateral ischemia QTc prolonged No previous ECGs available Confirmed by SHERMAN WILDER ([id number]) on 11/14/2018 10:36:46 PM Referred By: CANDIDO Confirmed By:SHERMAN WILDER
--- NOTE | 2018-11-14 10:50 | RADIOLOGY IMAGING REPORT ---
FACILITY: [facility] [place] PATIENT NAME: Benny Pradhan : 1945 MR: [id number] V: [id number] EXAM DATE: ORDERING PHYSICIAN: SPEEDY REY TECHNOLOGIST: [place] [facility] [place] Prad[place] : 1945 Visit/Account:[id number] Date of Sevice: 11/14/2018 CHEST SINGLE AP History: Additional history: Dialysis patient FINDINGS: Comparison studies: None. Tubes and Lines: None. Lungs and pleura: Well aerated. No evidence of focal consolidation or pleural effusions. No evid ence of fluid overload. Mediastinum: normal. Cardiac silhouette: normal . Osseous structures: Sternal closure wires noted. Otherwise unremarkable. Additional findings: There is a vascular stent seen over the left axillary region. IMPRESSION: No acute cardiopulmonary pathology identified. Negative for fluid overload. Report Dictated By: Feliciano Rutledge MD at 11/14/2018 10:44 AM Report E-Signed By: Feliciano Rutledge MD at 11/14/2018 10:45 AM WSN:[id number]
[2018-11-14 11:00] VITALS: BP 110/84
== END 2018-11-14 11:38 | disposition home or self-care (01) ==
LOC: ER 10:20
DX: R55 Syncope and collapse (principal)
CPT/HCPCS: 71045; 82040; 82247; 82310; 82374; 82435; 82565; 82947; 83735; 84075; 84132; 84155; 84295; 84450; 84460; 84484; 84520; 85025; 85610; 85730; 93005; 99284

== ENCOUNTER 2019-02-03 08:15 | Outpatient (RCR) | payer MEDICARE, BC ==
--- NOTE | 2018-11-10 11:51 | PT PLAN OF CARE ---
Physician: Dr. 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 (both progressing) Two months: Ed performs 45 min. of exercise for improved conditioning (met), low fall risk in community ambulation (progressing). Three months: Ed is strong and conditioned enough for the active transplant list. 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 (all progressing) Patient Compliance: Excellent Prognosis: Excellent Reasons for continuing therapy: S: Ed relates he feels more steady with his gait. Posture: Heels 8 inches apart, steady, upright trunk. Gait: Six minutes walk test 513 feet, 70% less than the average for 70-79 y/o men. Strength: Quads R 85#, L 75#, hip abductors remain 3/5. Balance: Double limb support. Sit to stand with steady immediate standing balance. Mobility: Sit to stand without UE use. Mat mobility WNL. A/P: Ed Carolynn continues to improve leg strength, while conditioning is progressing more slowly. If you agree, we'll continue 2x/week to goals set. Thank you. INDIGO
--- NOTE | 2018-12-23 09:48 | PT PLAN OF CARE ---
Physician: Dr. Otoniel Hernandez Patient is being seen: 2x/week Therapist: Jo Catherine, PT Medical Diagnosis: R53.1 Weakness, R53.81 Deconditioning Treatment Diagnosis: Same Date of Onset: 11/11/07 Date of Initial Evaluation: 08/05/18 Date patient was last seen: 12/23/18 Number of treatments: 31 Number of cancellations/No shows: 1 INTERVENTIONS: Strengthening/condition Spinal Stabilization Gait Trg/Balance Trg Home Exercise Program GOALS: One month: Ed ambulates with SPC 10 minutes with O2 sat in the low 90's, transfers without UE use sit<>stand with eccentric quad control. (both progressing) Two months: Ed performs 45 min. of exercise for improved conditioning (met), low fall risk in community ambulation (progressing). Three months: Ed is strong and conditioned enough for the active transplant list. 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 (all progressing) Patient Compliance: Excellent Prognosis: Excellent Reasons for continuing therapy: S: Ed denies falls. He feels his gait speed is improving. Posture: Heels 6 inches apart, steady, upright trunk. Upright seated posture. Strength: Quads R improved 17% to 102#, L improved 15% to 88#, hip abductors now R 50#, L 40#. Gait: Six minute walk test 1,026 ft., a 34% impairment, O2 readings not recording on our O2 sensor, gait speed 2.9 ft./sec., a community ambulator speed. Balance: Frequent loss of balance with crouched posture self-recovery with dynamic strengthening exercises. Unable to ambulate backwards due to poor balance. Mobility: Sit to stand: one attempt independent, improving eccentric quad control. A/P: Marco Pradhan has made excellent progress in the last 6 weeks with gait and endurance. If you agree, we'll continue 2x/week, 3 months working to goals set. Thank you. INDIGO
[~2019-02-03 08:15] MED LIST changes: +CLIN300C99 PO
== END 2019-02-04 ==
LOC: PT 08:15
PROVIDERS: ATTEND Internal Medicine Nephrology
DX: R53.1 Weakness (principal); R53.81 Other malaise

== ENCOUNTER 2019-02-12 08:15 | Outpatient (RCR) | payer MEDICARE, BC ==
[2019-02-12] MEDS ORDERED: CLIN300C99 PO (12:48)
--- NOTE | 2019-02-13 09:45 | PT PLAN OF CARE ---
Physician: Dr. Otoniel Hernandez Patient is being seen: 2x/week Therapist: Jo Catherine, PT Medical Diagnosis: R53.1 Weakness, R53.81 Deconditioning Treatment Diagnosis: Same Date of Onset: 11/11/07 Date of Initial Evaluation: 08/05/18 Date patient was last seen: 02/12/19 Number of treatments: 42 Number of cancellations/No shows: 1 INTERVENTIONS: Strengthening/condition Range of Motion Spinal Stabilization Stretching Neuromuscular Re-ed Gait Trg/Balance Trg Home Exercise Program GOALS: One month: Ed ambulates with SPC 10 minutes with O2 sat in the low 90's, transfers without UE use sit<>stand with eccentric quad control. (met) Two months: Ed performs 45 min. of exercise for improved conditioning (met), low fall risk in community ambulation (met). Three months: Ed is strong and conditioned enough for the active transplant list. 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 (all met) Patient Compliance: Excellent Prognosis: Excellent Reasons for discontinuing therapy: S: Ed relates he is ready to continue exercising independently, at gym. L hip pain 01/18. Ed denies falls. Strength: Quads R 100#, L 70#, hip abductors R 22#, L24# Gait: 10 min. ambulation with O2 on room air in the low 90's, 1540 feet. Balance: Stepping reactions present. A/P: Ed Carolynn has improved endurance, strength and balance. I'll DC PT to gym exercise. Thank you. INDIGO
== END 2019-02-12 18:00 | disposition home or self-care (01) ==
LOC: PT 08:15
PROVIDERS: ATTEND Internal Medicine Nephrology
DX: R53.1 Weakness (principal); R53.81 Other malaise

== ENCOUNTER → 2019-06-04 | Outpatient (CLI) | payer MEDICARE, BC ==
[~2019-06-04] MED LIST changes: +ASPI-1471 PO; +IOPAMIDOL 76% 100 ML INFUS BTL 100 ML ONE; +LANT10002 PO; +NS(*) 0.9% 50 ML BAG 0 ML ONE
--- NOTE | 2019-06-04 17:27 | RADIOLOGY IMAGING REPORT ---
FACILITY: [facility] PATIENT NAME: Benny Pradhan : 1945 MR: [id number] V: [id number] EXAM DATE: ORDERING PHYSICIAN: ILSA NICOLE TECHNOLOGIST: Location: [facility] - [place] Patient: Benny Pradhan : 1945 Visit/Account:[id number] Date of Sevice: 06/04/2019 CT ABDOMEN WITH CONTRAST HISTORY: Evaluate the liver. Liver mass protocol. TECHNIQUE: CT abdomen with intravenous contrast. One of the following dose optimization techniques was utilized in the performance of this exam: Autom ated exposure control; adjustment of the mA and/or kV according to the patient's size; or use of an i terative reconstruction technique. Specific details can be referenced in the facility's radiology C T exam operational policy. CONTRAST: 75 mL [id number]. COMPARISON: No prior exams available for comparison FINDINGS: Visualized lung bases: Mild nonspecific circumferential wall thickening of the distal esophagus. Hepatobiliary: Liver is grossly normal in size and contour. There may be slight lobulated contour. T here is a cyst within the right hepatic lobe measuring up to 1.5 cm. No concerning hepatic lesions id entified. Portal and hepatic veins are patent. No biliary ductal dilatation. Gallbladder is unremarka ble. Spleen: Negative. Adrenals: Negative. Pancreas: Negative. Kidneys: Kidneys appear to be surgically absent. No abnormal soft tissue within the expected location s. GI: Mild/moderate proximal colonic diverticulosis without evidence for diverticulitis. Otherwise neg ative. No wall thickening or evidence for obstruction. Appendix is unremarkable. Vessels/spaces/nodes: Mild atherosclerosis. No lymphadenopathy. Nonspecific mass inferior and poste rior to the gallbladder measuring 5.2 x 1.8 cm (image 5 of series 9), with internal areas of fat. Bones/soft tissues: Small fat-containing supraumbilical ventral abdominal wall hernia. No acute or co ncerning osseous abnormality. Multilevel mild/moderate degenerative changes within the thoracal lumba r spine. IMPRESSION: 1. Liver is grossly unremarkable without definitive evidence for cirrhosis or concerning hepatic lesi on. 2. Nonspecific mass inferior posterior to the gallbladder measuring 5.2 x 1.8 cm with internal benign appearing fat. This is nonspecific however favored benign, possibly postsurgical in etiology. Recomm end correlation with prior imaging, if available. If no prior scans are available, 3 month follow-up exam is recommended. Exam can be performed without contrast. 3. Additional incidental/chronic findings, as above. Report Dictated By: Baron Magallon MD at 06/04/2019 5:14 PM Report E-Signed By: Baron Magallon MD at 06/04/2019 5:20 PM WSN:[id number]
== END ==
LOC: CT 00:30
PROVIDERS: ATTEND Internal Medicine Nephrology
DX: N18.6 End stage renal disease (principal); R16.0 Hepatomegaly, not elsewhere classified
CPT/HCPCS: 74160; J7050; Q9967

== ENCOUNTER → 2019-06-30 | Outpatient (CLI) | payer MEDICARE, BC ==
[~2019-06-30] MED LIST changes: +CALC668T PO; +GENT40VI IJ; -IOPAMIDOL 76% 100 ML INFUS BTL 100 ML ONE; -NS(*) 0.9% 50 ML BAG 0 ML ONE
== END ==
LOC: LAB 11:10
PROVIDERS: ATTEND Urology
DX: Z12.5 Encounter for screening for malignant neoplasm of prostate (principal)
CPT/HCPCS: 36415; 84153; 84154